=== PATIENT | female | born 1995 | race Two or more races ===

== ENCOUNTER 2019-12-12 16:16 | Emergency (ER) | payer MEDICAID, SELFPAY ==
[2019-12-12 16:20] VITALS: BP 153/85; PULSE 69; RESP 16; TEMP 36.8; O2SAT 99; BMI 42.8
[2019-12-12 16:54] LABS: Basophils % 0.5 %; Eosinophils # 0.1 10^3/uL (0.0-0.8); Eosinophils % 1.6 %; Hematocrit 42.8 % (37.0-47.0); Hemoglobin 13.8 g/dL (11.5-15.3); Lymphocytes # 1.2 10^3/uL (0.8-4.8); Lymphocytes % 27.5 %; Mean Corpuscular HGB Conc 32.2 g/dL (30.0-36.0); Mean Corpuscular Hemoglobin 28.9 pg (28.0-34.0); Mean Corpuscular Volume 89.7 fL (81-99); Mean Platelet Volume 9.4 fL (7.4-10.4); Monocytes # 0.5 10^3/uL (0.2-0.9); Monocytes % 10.3 %; Neutrophils # 2.6 10^3/uL (1.8-7.7); Neutrophils % 59.9 %; Nucleated Red Blood Cells % 0 %; Platelet Count 279 10^3/cmm (130-400); Red Blood Count 4.77 10^6/uL (4.1-5.3); White Blood Count 4.4 10^3/uL (4.0-10.0)
[2019-12-12 17:16] LABS: Alanine Aminotransferase 13 U/L (0-33); Albumin Level 4.1 g/dL (3.5-5.2); Alkaline Phosphatase 71 IU/L (35-105); Anion Gap 14.8 (5-19); Aspartate Amino Transferase 20 U/L (0-32); Blood Urea Nitrogen 9 mg/dL (6-20); Calcium 9.1 mg/dL (8.5-10.5); Carbon Dioxide 24 mmol/L (22-29); Chloride 102 mmol/L (98-107); Glomerular Filtration Rate 101.1 mL/min (90-130); Glucose 94 mg/dL (65-115); Potassium 3.8 mmol/L (3.5-5.1); Sodium 137 mmol/L (136-145); Total Bilirubin 0.3 mg/dL (0.15-1.2); Total Protein 8.1 g/dL (6.6-8.7)
[2019-12-12 17:28] LABS: Urine Appearance Bloody (CLEAR); Urine Color Red (Yellow); pH Urine 8 (5-7)
[2019-12-12 17:29] LABS: Add Urine Microscopic? YES; Bilirubin Urine Neg (NEGATIVE); Blood Urine 3+ (Negative); Glucose Urine UA Norm (Normal); Ketones Urine Negative (Negative); Leukocyte Esterase Urine 1+ (Negative); Nitrate Urine Negative (Negative); Protein Urine 1+ (Negative); Sulfosalicylic Acid Urine Negative; Urobilinogen Urine Norm (Negative)
[2019-12-12 17:52] LABS: Add Urine Culture? Yes; Bacteria Urine 1+; RBC Urine TOO NUMEROUS TO CNT /hpf (0-2)
== END 2019-12-12 17:45 | disposition left against medical advice (07) ==
LOC: ER 16:50
PROVIDERS: Emergency Provider Emergency Medicine; Family Provider Family Medicine; PCP Family Medicine
DX: Z53.21 Procedure and treatment not carried out due to patient leaving prior to being seen by health care provider (principal)
CPT/HCPCS: 36415; 80053; 81001; 81025; 85025; 87086; 99281; 99282

== ENCOUNTER 2020-01-19 01:36 | Emergency (ER) | payer MEDICAID, SELFPAY ==
[2020-01-19 01:45] VITALS: BP 132/76; PULSE 87; RESP 18; TEMP 36.8; O2SAT 97; BMI 45.8
[2020-01-19 01:49] VITALS: PULSE 88
--- NOTE | 2020-01-19 01:50 | PC.NURSE ---
PATIENT STATES SHE FELL DOWN THE STAIRS. PATIENT STATES SHE WAS JUST WALKING DOWN THE STAIRS AND HER FOOT SLIPPED OUT FROM UNDERNEATH HER. PATIENT STATES THAT HER LEFT UPPER LEG AND KNEE HURT. PATIENT STATES SHE DIDN'T HIT HER HEAD OR LOSE CONSCIOUSNESS.
[2020-01-19 01:55] VITALS: BP 134/68; PULSE 79; RESP 16; O2SAT 97
--- NOTE | 2020-01-19 01:56 | XR_ITS ---
WS: [id number] XR hip LT 2-3V wo/w pel* [id number] REASON FOR EXAM: fall/pain FINDINGS: The left hip shows no gross fractures. The acetabulum was intact. No fractures are seen. The ilium, ischium, and pubis on the left were normal. XR/XR hip LT 2-3V wo/w pel* [id number] IMPRESSION: Negative left hip.
--- NOTE | 2020-01-19 01:56 | XR_ITS ---
WS: [id number] XR femur LT min 2V* [id number] REASON FOR EXAM: fall/pain FINDINGS: The femoral shaft was normal. The left hip joints show no fractures or displacement. The knee joint was normal. There is mild edema this changes in the upper thigh area. XR/XR femur LT min 2V* [id number] IMPRESSION: No fractures are seen of the femur. There is mild soft tissue edema in the upper thigh area.
--- NOTE | 2020-01-19 02:12 | W.ED.EXTPRO ---
HPI - Extremity Problem General: Chief complaint: Extremity Injury, Lower Stated complaint: FELL DOWN STAIRS Time Seen by Provider: 01/19/20 01:51 Source: patient Mode of arrival: ambulatory Limitations: no limitations History of Present Illness: HPI Narrative: Patient is a 24-year-old female who presents to ED today with complaints of left hip and thigh pain after a fall. Patient tells me she was on a flight of stairs and accidentally fell. She denies any other injuries during the fall. Patient tells me she is not able to ambulate due to her discomfort. She denies striking her head, LOC, neck or back pain. MD Complaint: extremity pain Onset (ago): hour(s) Pain Consistency: constant Location: left and lower extremity Relieving factors: immobilization Exacerbating factors: range of motion, weight bearing, walking and palpation Associated symptoms: Reports no associated symptoms; Deny chest pain Review of Systems Eyes: Denies: change in vision or blurry vision Card: Denies: chest pain Resp: Denies: shortness of breath GI: Denies: abdominal pain Musc: Reports: extremity pain and joint pain; Denies: neck pain, back pain, extremity swelling, joint swelling, redness or joint warmth Neuro: Denies: headache, numbness in extremities, weakness in extremities or changes in sensation PFS ED PFSH: Social History Smoking and tobacco status: current every day smoker Current gender identity: Female Female Reproductive History: Date of last menstrual period: 12/11/19 Physical Exam Const: COMMON NORMALS: no apparent distress, oriented x3, no limitations and alert NUTRITIONAL APPEARANCE: obese morbidly obese Neck/C-Spine: COMMON NORMALS: full ROM CERVICAL SPINE: No pain with cervical ROM and No cervical spine tenderness Back/Pelvis: COMMON NORMALS: thoracic and lumbar spine normal to inspection, no thoracic nor lumbar tenderness and thoraco-lumbar ROM normal Extremity: OTHER: TTP L hip joint and thigh; joint hard to fully assess due to body habitus; she is able to lift leg off table about 20-30 degrees w/o assistance; can fully flex knee; no pain to knee, lower leg, foot or ankle; no redness, warmth, swelling, or ecchymosis noted to extremity; distal pulses intact and equal bilaterally; cap refill brisk Neuro: COMMON NORMALS: oriented x3, moves all extremities, no focal motor deficits and no sensory deficits noted SENSORIUM/ORIENTATION: Yes alert Skin: COMMON NORMALS: no rashes or lesions noted GENERAL SKIN EXAM: no rashes or lesions noted Course Vital Signs: Vital signs: Vital Signs Temperature 98.2 F 01/19/20 01:45 Pulse Rate 66 01/19/20 03:04 Respiratory Rate 16 01/19/20 03:04 Blood Pressure 116/71 01/19/20 03:04 Pulse Oximetry 98 01/19/20 03:04 MDM - Extremity (Nontraumatic) MDM Narrative: Medical decision making narrative: pt ambulated out of ED w/o assistance Lab Data: Labs: Lab Results 01/19/20 Range/Units 02:25 HCG, Qual Negative (Negative) Imaging Data^: L hip/pelvis XR: My impression: NAD L femur XR: My impression: NAD Discharge Plan Discharge Patient Disposition: Home, Self-Care Clinical Impression: Acute pain of left hip, Acute pain of left thigh Fall down stairs Qualifiers: Encounter type: initial encounter Qualified Code(s): W10.8XXA - Fall (on) (from) other stairs and steps, initial encounter Condition: Stable Prescriptions: No Action hydroxyzine HCl 25 mg tablet 25 mg PO BID PRN (Reason: Anxiety) RF: 0 sertraline 100 mg tablet 100 mg PO Q24H RF: 0 trazodone 50 mg tablet 50 mg PO BID RF: 0 prazosin 2 mg capsule 2 mg PO BID RF: 0 Discharge Orders: Discharge Order (Routine); Ordered 01/19/20 Ordered By: Yaritza Rouse Referrals: Vashti Hodge DO [Family Provider] - Discharge Diet: Usual diet Discharge Activity: Increase activity as tolerated and Use walker/crutches as instructed Activity Restrictions/Additional Instructions: Follow up with primary care in a week for continued or non-improving pain. Discharge Date/Time: 01/19/20 03:06 Coding Level of Care Code ED Mobile Application Engineer for Charu Fwgabino Exam Detailed
--- NOTE | 2020-01-19 02:17 | PC.NURSE ---
PATIENT AMBULATED TO BATHROOM WITH CLEAN CATCH PACKAGING AND CLEAN CATCH EDUCATION PROVIDED BY NURSE.
[2020-01-19 02:30] LABS: HCG Qualitative Urine. Negative (Negative)
--- NOTE | 2020-01-19 03:03 | PC.NURSE ---
PATIENT WAS OFFERED A SET OF CRUTCHES AND DECLINED.
[2020-01-19 03:04] VITALS: BP 116/71; PULSE 66; RESP 16; O2SAT 98
== END 2020-01-19 03:06 | disposition home or self-care (01) ==
PROVIDERS: Emergency Provider Physician Assistant; Family Provider Family Medicine
DX: M25.552 Pain in left hip (principal); M79.652 Pain in left thigh; F17.200 Nicotine dependence, unspecified, uncomplicated; E66.01 Morbid (severe) obesity due to excess calories; Z68.42 Body mass index [BMI] 45.0-49.9, adult
CPT/HCPCS: 12345; 73502; 73552; 81025; 99281; 99282; 99283; A9270

== ENCOUNTER → 2020-02-06 09:12 | Outpatient (BNVA) | payer MEDICAID, SELFPAY | PROVIDERS: Family Provider Family Medicine; Visit Provider Obstetrics & Gynecology | DX: N91.2 Amenorrhea, unspecified (principal) | CPT/HCPCS: 81025 ==

== ENCOUNTER → 2020-02-07 08:52 | Outpatient (BNVA) | payer MEDICAID, SELFPAY | PROVIDERS: Family Provider Family Medicine; Visit Provider Counselor Professional | DX: F40.10 Social phobia, unspecified (principal); F33.9 Major depressive disorder, recurrent, unspecified; F43.12 Post-traumatic stress disorder, chronic | CPT/HCPCS: 90834 ==

== ENCOUNTER → 2020-02-14 07:59 | Outpatient (BNVA) | payer MEDICAID, SELFPAY | PROVIDERS: Family Provider Family Medicine; Visit Provider Counselor Professional | DX: F40.10 Social phobia, unspecified (principal); F33.9 Major depressive disorder, recurrent, unspecified; F43.12 Post-traumatic stress disorder, chronic | CPT/HCPCS: 90834 ==

== ENCOUNTER 2020-02-15 23:58 | Emergency (ER) | payer MEDICAID, SELFPAY ==
[2020-02-16 00:04] VITALS: BP 131/81; PULSE 98; RESP 16; TEMP 36.9; O2SAT 100; BMI 45.8
--- NOTE | 2020-02-16 00:11 | US_ITS ---
WS: [id number] EARLY OBSTETRICAL ULTRASOUND (<14 WEEKS). HISTORY: Vaginal bleeding. COMPARISON: None available. Single intrauterine gestational sac is identified. Cardiac activity at 116 BPM. [place]-rump length sandra sures 0.3 cm which corresponds to a gestation of 6w0d. Normal-appearing yolk sac and amnion demonstra abhishek. No subchorionic hemorrhage. No free fluid. Normal size ovaries with no mass. US/US OB <= 14 weeks fetus [id number] IMPRESSION: 1. Single intrauterine gestation of 6 weeks 0 days with an EDC of 10/11/2020. 2. No subchorionic hemorrhage.
--- NOTE | 2020-02-16 00:16 | W.ED.PREGNAN ---
HPI - General: Chief complaint: Vaginal Bleeding Stated complaint: preg and bleeding Time Seen by Provider: 02/16/20 00:05 Source: patient Mode of arrival: ambulatory Limitations: no limitations History of Present Illness: HPI Narrative: 25-year-old female who is roughly 6 to 7 weeks states she noticed some slight blood when she wiped tonight. She is also had some lower abdominal cramping she has had for days she rates a 2 out of 10. She denies any clot passage. She denies any worsening or improving factors. She is unsure what her blood type is. Complaint: vaginal bleeding Onset (ago): hour(s) Severity: mild Quality: Cramping Relieving factors: none Exacerbating factors: none Vaginal discharge: none Vaginal bleeding: light Date of Last Menstrual Period: 01/04/20 Associated symptoms: Deny abdominal pain, dysuria, headache(s), nausea or vomiting Review of Systems Const: Denies: fever, chills, body aches or change in appetite Eyes: Denies: blurry vision or eye discomfort ENMT: Denies: throat pain or dental pain Card: Denies: chest pain Resp: Denies: shortness of breath GI: Denies: abdominal pain, nausea, vomiting or diarrhea : Reports: vaginal bleeding; Denies: painful urination Musc: Denies: neck pain or back pain Skin/Breast: Denies: rash Neuro: Denies: headache Psych: Denies: depression Gabriel/Lymph: Denies: easy bruising All/Imm: Denies: hives PFSH ED PFSH: Social History Smoking and tobacco status: current every day smoker Current gender identity: Female Female Reproductive History: Date of last menstrual period: 01/04/20 Physical Exam Const: COMMON NORMALS: no apparent distress, oriented x3 and healthy appearing HENMT: COMMON NORMALS: normocephalic and head/scalp atraumatic HEAD & SCALP: normocephalic and atraumatic Eye: COMMON NORMALS: PERRL and EOMs intact bilaterally PUPIL: Yes PERRL Neck/C-Spine: COMMON NORMALS: full ROM and supple Chest: COMMONS NORMALS: inspection of chest normal and palpation of chest normal Resp: COMMON NORMALS: normal respiratory effort, no retractions, no use of accessory muscles and clear to auscultation bilaterally AUSCULTATION: clear to auscultation bilaterally Cardio: COMMON NORMALS: regular rate, regular rhythm and no murmurs RATE: regular rate RHYTHM: regular rhythm GI: COMMON NORMALS: normal to inspection, nondistended, normoactive bowel sounds, soft to palpation, non-tender and no masses PALPATION: Yes soft Extremity: COMMON NORMALS: normal to inspection and full ROM Neuro: COMMON NORMALS: oriented x3, moves all extremities and no focal motor deficits Psych: COMMON NORMALS: mental status grossly normal, thought process normal and cooperative THOUGHT PROCESS: normal thought process Skin: COMMON NORMALS: no rashes or lesions noted and no wounds GENERAL SKIN EXAM: no rashes or lesions noted Course Vital Signs: Vital signs: Vital Signs Temperature 98.4 F 02/16/20 00:04 Pulse Rate 98 02/16/20 00:04 Respiratory Rate 16 02/16/20 00:04 Blood Pressure 131/81 02/16/20 00:04 Pulse Oximetry 100 02/16/20 00:04 MDM - OB/Uterine Contractions MDM Narrative: Medical decision making narrative: Patient presents here with threatened miscarriage. Patient's blood type is a positive and ultrasound showed an IUP consistent with dates. She has no signs of ectopic . Her bleeding is minimal in nature and is stable for discharge. She is to follow-up with her OB in 2 to 4 days and return if worsening. Lab Data: Labs: Lab Results 02/16/20 02/16/20 Range/Units 00:25 00:25 Ser , Sadia i-Qnt 75287.00 mIU/mL Blood Type A Positive Rho(D) Type Positive Imaging Data^: US OB: My impression: IUP 6 weeks with good heart rate Discharge Plan Discharge Patient Disposition: Home, Self-Care Clinical Impression: Threatened Condition: Stable Prescriptions: No Action hydroxyzine HCl 25 mg tablet 25 mg PO BID PRN (Reason: Anxiety) RF: 0 sertraline 100 mg tablet 100 mg PO Q24H RF: 0 trazodone 50 mg tablet 50 mg PO BID RF: 0 prazosin 2 mg capsule 2 mg PO BID RF: 0 Discharge Orders: Discharge Order (Routine); Ordered 02/16/20 Ordered By: Robb Fregoso Referrals: Vashti Hodge DO [Primary Care Provider] - 4-7 days Discharge Diet: Advance as tolerated Discharge Activity: Resume usual activity Patient Instructions: Threatened Miscarriage (ED) Coding Level of Care Code ED [employer] Operator for Casag Fwd Exam Comprehensive
[2020-02-16 01:32] VITALS: BP 127/62; PULSE 74; RESP 17; O2SAT 94
== END 2020-02-16 01:36 | disposition home or self-care (01) ==
PROVIDERS: Emergency Provider Emergency Medicine; Family Provider Family Medicine; PCP Family Medicine
DX: O20.0 Threatened abortion (principal); Z3A.01 Less than 8 weeks gestation of pregnancy; O99.331 Smoking (tobacco) complicating pregnancy, first trimester
CPT/HCPCS: 12345; 36415; 76801; 84702; 86850; 86900; 99281

== ENCOUNTER 2020-02-17 14:56 | Emergency (ER) | payer MEDICAID, SELFPAY ==
[2020-02-17 15:09] VITALS: BP 134/91; PULSE 91; RESP 18; TEMP 36.6; O2SAT 95; BMI 45.8
--- NOTE | 2020-02-17 15:32 | ED_ITS ---
HPI - Female Genitourinary General: Chief complaint: Vaginal Bleeding Stated complaint: abd pain, bleeding, 6 weeks preg Time Seen by Provider: 02/17/20 15:23 History of Present Illness: HPI Narrative: Pt has been having vaginal bleeding since yesterday, she found out she was and was here last night with bleeding and pain. Was found to be 6 weeks and had normal iup. Since then she has had more blood and pain so she came back as she was told to. She is MD elicited complaint: vaginal bleeding, pelvic pain and possible miscarriage Onset (ago): day(s) Location of symptoms: pelvis and low back Severity: moderate Female Urogenital Radiation: Non-Radiating Severity scale (1-10): 5 Quality of pain: cramping and aching Consistency: intermittent Vaginal discharge: none Vaginal bleeding: moderate Exacerbating factors: none Relieving factors: none Associated symptoms: Reports vaginal bleeding; Deny abdominal pain, headache(s) or nausea Patient : Yes Date of Last Menstrual Period: 01/04/20 Review of Systems General: Reports: 10 or more systems reviewed and unremarkable except in HPI and below Const: Denies: fever, chills or fatigue ENMT: Denies: throat pain Card: Denies: chest pain or swelling of feet/ankles Resp: Denies: shortness of breath or productive cough GI: Denies: abdominal pain, nausea, vomiting, diarrhea, constipation or blood in stool : Reports: bleeding between periods and pelvic pain; Denies: difficulty urinating Musc: Denies: extremity swelling Skin/Breast: Denies: rash Neuro: Denies: headache, numbness in extremities or weakness in extremities PFS ED PFSH: Social History Smoking and tobacco status: former smoker Current gender identity: Female Female Reproductive History: Date of last menstrual period: 01/04/20 Physical Exam Const: COMMON NORMALS: no apparent distress and oriented x3 GENERAL APPEARANCE: cooperative; not in distress HENMT: COMMON NORMALS: normocephalic HEAD & SCALP: normal to inspection and normocephalic MOUTH: oral and palatal mucosa normal and lip normal Neck/C-Spine: COMMON NORMALS: no meningeal signs GENERAL: Yes normal visual inspection and Yes trachea midline Chest: COMMONS NORMALS: inspection of chest normal Resp: COMMON NORMALS: normal respiratory effort and clear to auscultation bilaterally EFFORT & INSPECTION: Yes able to speak in complete sentences and No respiratory distress AUSCULTATION: clear to auscultation bilaterally, no rales, no rhonchi and no wheezes Cardio: COMMON NORMALS: regular rate, regular rhythm, S1 normal heart sound, S2 normal heart sound and no murmurs RATE: regular rate RHYTHM: regular rhythm HEART SOUNDS: S1 normal and S2 normal PERIPHERAL PULSES: radial pulses present and dorsalis pedis pulses present GI: COMMON NORMALS: normal to inspection, nondistended, normoactive bowel sounds, soft to palpation and non-tender INSPECTION: Yes normal to inspection AUSCULTATION: Yes normoactive bowel sounds PALPATION: Yes soft, No tender, No guarding and No rigid RECTAL EXAM: deferred : COMMON NORMALS: Yes no CVA tenderness BLADDER/KIDNEY EXAM: Yes no CVA tenderness SPECULUM EXAM - VAGINA: Yes vaginal bleeding OB/EXTERNAL & SPECULUM: vaginal bleeding Back/Pelvis: COMMON NORMALS: no CVA tenderness Extremity: COMMON NORMALS: normal to inspection, full ROM, normal capillary refill, no calf tenderness and no pedal edema Neuro: COMMON NORMALS: oriented x3, CN's II-XII intact bilaterally, moves all extremities and no focal motor deficits MENINGEAL SIGNS: Yes no meningeal signs Skin: COMMON NORMALS: no rashes or lesions noted GENERAL SKIN EXAM: no rashes or lesions noted Course Vital Signs: Vital signs: Vital Signs Temperature 97.9 F 02/17/20 15:09 Pulse Rate 91 02/17/20 15:09 Respiratory Rate 18 02/17/20 15:09 Blood Pressure 134/91 02/17/20 15:09 Pulse Oximetry 97 02/17/20 15:51 MDM - Female MDM Narrative: Medical decision making narrative: Dr Kay is looking at us now and comparing to yesterday. States there could be a viable , however as the us reports that cannot r/o ectpoic we will have her come back in 2 days for repeat us to check for ectopic. Or if she is having bleeding at 3-4 pads per hour or severe pain. Pts quant is going up, that will need to be repeated as well. She understands eerything. She has an appointment with ob on march 06. Bleeding is light now Lab Data: Attestation: I reviewed the patient's lab results. Labs: Lab Results 02/17/20 02/17/20 Range/Units 15:53 15:53 WBC 5.2 (4.0-10.0) 10^3/ uL RBC 4.56 (4.1-5.3) 10^6/u L Hgb 13.6 (11.5-15.3) g/dL Hct 41.4 (37.0-47.0) % MCV 90.8 (81-99) fL MCH 29.8 (28.0-34.0) pg MCHC 32.9 (30.0-36.0) g/dL RDW 13.7 (12.1-15.1) % Plt Count 244 (130-400) 10^3/c mm MPV 8.7 (7.4-10.4) fL Neut % (Auto) 63.6 % Lymph % (Auto) 21.8 % Hickman % (Auto) 11.1 % Eos % (Auto) 2.5 % Baso % (Auto) 0.6 % Neut # (Auto) 3.3 (1.8-7.7) 10^3/u L Lymph # (Auto) 1.1 (0.8-4.8) 10^3/u L Hickman # (Auto) 0.6 (0.2-0.9) 10^3/u L Eos # (Auto) 0.1 (0.0-0.8) 10^3/u L Baso # (Auto) 0.0 (0.0-0.1) 10^3/u L Nucleated RBC % (a uto) 0 % Nucleated RBCs # 0.0 /100WBC Ser , Sadia i-Qnt 50875.00 mIU/mL Imaging Data: US OB: Radiologist's impression: Patient: Monae Gomez #: [id number] : 1995Acct#:[id number] Age/Sex: 25 / FADM Date: 02/17/20 Loc: ERRoom/Bed: Attending Dr: Ordering Provider/Ordering MD: Diane Restrepo DO Date of Service: 02/17/20 Procedure(s): US OB transvaginal [id number] Accession Number(s): [id number] Report Number: [id number] WS: [id number] Obstetrical ultrasound, less than 14 weeks. HISTORY: Possible miscarriage. COMPARISON: 02/16/2020. Previously seen yolk sac is no longer identified. Gestational sac remains normal in appearance. There is no crown-rump length. Cardiac activity was identified on the prior study is no longer evident. No free fluid. LEFT ovary contains a thick wall cyst measuring 2.5 x 2.2 x 2.2 cm. Mild hyperemia. US/US OB transvaginal [id number] IMPRESSION: 1. Intrauterine gestation described on 02/16/2020 is not evident today. Suspect incomplete spontaneous . There is no cardiac activity or yolk sac identified today. 2. The gestational sac remains intact. 3. LEFT ovarian corpus luteum cyst. Similar appearance to an ectopic . Please correlate with decreasing beta hCG levels. With an intrauterine gestation identified on 02/16/2020 and less likely to be an ectopic. Dictated By:Antonia Dunlap DO Signed By:Antonia Dunlap DOSigned Date/Time:02/17/20 1628 Discharge Plan Discharge Patient Disposition: Home, Self-Care Clinical Impression: Threatened Condition: Stable Prescriptions: No Action hydroxyzine HCl 25 mg tablet 25 mg PO BID PRN (Reason: Anxiety) RF: 0 sertraline 100 mg tablet 100 mg PO Q24H RF: 0 trazodone 50 mg tablet 50 mg PO BID RF: 0 prazosin 2 mg capsule 2 mg PO BID RF: 0 Referrals: Vashti Hodge DO [Primary Care Provider] - 1-3 days Discharge Diet: Advance as tolerated Discharge Activity: Limit activity as instructed Patient Instructions: Threatened Miscarriage (ED) Activity Restrictions/Additional Instructions: no sexual activity, limit lifting, no tampons return if worse, any problem, any change f/u with OB as scheduled return in 2 days for repeat US to look for ectopic and quant hcg Coding Level of Care Code ED Vp Scientific Affairs for Chg Fwd Exam Comprehensive
[2020-02-17 15:51] VITALS: O2SAT 97
--- NOTE | 2020-02-17 15:51 | US_ITS ---
WS: [id number] Obstetrical ultrasound, less than 14 weeks. HISTORY: Possible miscarriage. COMPARISON: 02/16/2020. Previously seen yolk sac is no longer identified. Gestational sac remains normal in appearance. There is no crown-rump length. Cardiac activity was identified on the prior study is no longer evident. No free fluid. LEFT ovary contains a thick wall cyst measuring 2.5 x 2.2 x 2.2 cm. Mild hyperemia. US/US OB transvaginal [id number] IMPRESSION: 1. Intrauterine gestation described on 02/16/2020 is not evident today. Suspect incomplete spontaneous . There is no cardiac activity or yolk sac iden tified today. 2. The gestational sac remains intact. 3. LEFT ovarian corpus luteum cyst. Similar appearance to an ectopic . Please correlate with decreasing beta hCG levels. With an intrauterine gestat ion identified on 02/16/2020 and less likely to be an ectopic.
--- NOTE | 2020-02-17 15:54 | PC.NURSE ---
Unable to dopple heart tones. ED provider in room
[2020-02-17 16:01] LABS: Basophils % 0.6 %; Eosinophils # 0.1 10^3/uL (0.0-0.8); Eosinophils % 2.5 %; Hematocrit 41.4 % (37.0-47.0); Hemoglobin 13.6 g/dL (11.5-15.3); Lymphocytes # 1.1 10^3/uL (0.8-4.8); Lymphocytes % 21.8 %; Mean Corpuscular HGB Conc 32.9 g/dL (30.0-36.0); Mean Corpuscular Hemoglobin 29.8 pg (28.0-34.0); Mean Corpuscular Volume 90.8 fL (81-99); Mean Platelet Volume 8.7 fL (7.4-10.4); Monocytes # 0.6 10^3/uL (0.2-0.9); Monocytes % 11.1 %; Neutrophils # 3.3 10^3/uL (1.8-7.7); Neutrophils % 63.6 %; Nucleated Red Blood Cells % 0 %; Platelet Count 244 10^3/cmm (130-400); Red Blood Count 4.56 10^6/uL (4.1-5.3); Red Cell Distribution Width 13.7 % (12.1-15.1); White Blood Count 5.2 10^3/uL (4.0-10.0)
[2020-02-17 17:45] VITALS: BP 153/63; PULSE 68; O2SAT 98
== END 2020-02-17 17:45 | disposition home or self-care (01) ==
PROVIDERS: Emergency Provider Emergency Medicine; Family Provider Family Medicine; PCP Family Medicine
DX: O20.0 Threatened abortion (principal); Z3A.01 Less than 8 weeks gestation of pregnancy
CPT/HCPCS: 12345; 36415; 76817; 84702; 85025; 99281; 99282

== ENCOUNTER 2020-02-19 10:09 | Emergency (ER) | payer MEDICAID, SELFPAY ==
[2020-02-19 10:19] VITALS: BP 156/83; PULSE 90; RESP 16; O2SAT 99; BMI 45.8
[2020-02-19 10:23] VITALS: BP 156/83; PULSE 88; RESP 16; O2SAT 99
--- NOTE | 2020-02-19 10:23 | W.ED.PREGNAN ---
HPI - General: Chief complaint: OB/Uterine Contractions Stated complaint: 6 WKS PREG, BLEEDING/CRAMPING Time Seen by Provider: 02/19/20 10:14 History of Present Illness: HPI Narrative: Patient is 3 para 2. She states she has had vaginal bleeding since last week. Also complaints of abdominal cramping and pain MD Complaint: abdominal pain and vaginal bleeding Onset (ago): day(s) Pain Consistency: constant Location: pelvis and abdomen Severity: moderate Quality: Cramping Relieving factors: none Exacerbating factors: movement Vaginal discharge: none Vaginal bleeding: light Date of Last Menstrual Period: 01/04/20 Patient : Yes Review of Systems General: Reports: 10 or more systems reviewed and unremarkable except in HPI and below : Reports: vaginal bleeding PFSH ED PFSH: Social History Smoking and tobacco status: former smoker Current gender identity: Female Female Reproductive History: Date of last menstrual period: 01/04/20 Physical Exam Const: COMMON NORMALS: no apparent distress, oriented x3 and alert Neck/C-Spine: COMMON NORMALS: no JVD Resp: COMMON NORMALS: normal respiratory effort, no retractions, no use of accessory muscles and clear to auscultation bilaterally AUSCULTATION: clear to auscultation bilaterally Cardio: COMMON NORMALS: no JVD, regular rate and regular rhythm RATE: regular rate RHYTHM: regular rhythm GI: COMMON NORMALS: normal to inspection, nondistended, normoactive bowel sounds, soft to palpation and non-tender PALPATION: Yes soft Extremity: COMMON NORMALS: normal to inspection, full ROM and no pedal edema Neuro: COMMON NORMALS: oriented x3 SENSORIUM/ORIENTATION: Yes alert Skin: COMMON NORMALS: no rashes or lesions noted, no wounds, skin turgor normal, no jaundice, no petechiae and no mottling GENERAL SKIN EXAM: no rashes or lesions noted and turgor normal Discharge Plan Discharge Prescriptions: No Action hydroxyzine HCl 25 mg tablet 25 mg PO BID PRN (Reason: Anxiety) RF: 0 sertraline 100 mg tablet 100 mg PO Q24H RF: 0 trazodone 50 mg tablet 50 mg PO BID RF: 0 prazosin 2 mg capsule 2 mg PO BID RF: 0 Coding Level of Care Code ED [employer] Teacher for Chg Fwd
--- NOTE | 2020-02-19 10:26 | USR_ITS ---
PROCEDURE INFORMATION: Exam: US First Trimester, Transabdominal and US , Transvaginal Exam date and time: 02/19/2020 11:24 AM Age: 25 years old Clinical indication: Lmp or gestational age (in weeks): 6 weeks 3 days; Other: Spotting; ; Patient HX: Prior exams on 02-16-20 and 02-17-20; Additional info: Threatened ab TECHNIQUE: Imaging protocol: Real-time transabdominal obstetrical ultrasound of the maternal pelvis and a first trimester , less than 14 weeks 0 days, with image documentation. Transvaginal imaging was used for better evaluation of the fetus and adnexa. COMPARISON: US OB transvaginal [id number] 02/17/2020 4:16 PM FINDINGS: GESTATION: Gestation: Single intrauterine gestational sac. Yolk sac identified measuring 3.1 mm. pole identified by transvaginal imaging. Heart rate: 116 bpm. Placenta: Unremarkable. No subchorionic bleed. Amniotic fluid: Amniotic is normal for gestational age. BIOMETRY: Estimated gestational age: [place]-rump length 6 weeks 3 days. Mean sac diameter: Mean sac diameter 7 weeks 1 day transabdominally. [place]-Rump length: [place]-rump length 6 weeks 3 days. Estimated due date: [place] 10/11/2020. MATERNAL: Uterus: Uterus 10.0 x 5.6 .x 6.8 cm transabdominally Cervix: Small uterine cervical nabothian cysts measuring up to 3.7 mm. Right adnexa: Right ovary 2.2 x 2.7 x 2.9 cm transabdominally. Normal color Doppler blood flow. Left adnexa: Left ovary 2.3 x 2.2 x 2.3 cm transabdominally. 1.8 cm left ovarian follicle. Normal arterial and venous left ovarian blood flow. Intraperitoneal: No intraperitoneal free fluid. US/US OB <=14 wk fetus w transvag IMPRESSION: Single living intrauterine . [place]-rump length 6 weeks 3 days.
[2020-02-19 10:27] VITALS: TEMP 36.9
--- NOTE | 2020-02-19 10:50 | PC.NURSE ---
US tech at bedside
[2020-02-19 11:37] LABS: Basophils # 0.1 10^3/uL (0.0-0.1); Basophils % 0.8 %; Eosinophils # 0.2 10^3/uL (0.0-0.8); Eosinophils % 2.4 %; Hematocrit 42.1 % (37.0-47.0); Hemoglobin 13.9 g/dL (11.5-15.3); Lymphocytes # 1.7 10^3/uL (0.8-4.8); Lymphocytes % 27.5 %; Mean Corpuscular Hemoglobin 29.8 pg (28.0-34.0); Mean Corpuscular Volume 90.3 fL (81-99); Mean Platelet Volume 8.9 fL (7.4-10.4); Monocytes # 0.5 10^3/uL (0.2-0.9); Monocytes % 7.3 %; Neutrophils # 3.9 10^3/uL (1.8-7.7); Neutrophils % 61.8 %; Nucleated Red Blood Cells % 0 %; Platelet Count 250 10^3/cmm (130-400); Red Blood Count 4.66 10^6/uL (4.1-5.3); Red Cell Distribution Width 13.7 % (12.1-15.1); White Blood Count 6.3 10^3/uL (4.0-10.0)
[2020-02-19 11:47] VITALS: BP 116/65; PULSE 69; RESP 16; O2SAT 98
[2020-02-19 12:01] VITALS: BP 102/55
[2020-02-19 12:04] LABS: Alanine Aminotransferase 11 U/L (0-33); Albumin Level 3.9 g/dL (3.5-5.2); Alkaline Phosphatase 62 IU/L (35-105); Anion Gap 15.9 (5-19); Aspartate Amino Transferase 15 U/L (0-32); Blood Urea Nitrogen 11 mg/dL (6-20); Calcium 9.1 mg/dL (8.5-10.5); Carbon Dioxide 23 mmol/L (22-29); Chloride 101 mmol/L (98-107); Glucose 93 mg/dL (65-115); Osmolality Calculated 278 mOsm/kg (285-295); Potassium 3.9 mmol/L (3.5-5.1); Sodium 136 mmol/L (136-145); Total Bilirubin 0.6 mg/dL (0.15-1.2); Total Protein 6.9 g/dL (6.6-8.7)
[2020-02-19 12:14] VITALS: BP 111/64; PULSE 69; RESP 16; O2SAT 96
== END 2020-02-19 12:15 | disposition home or self-care (01) ==
PROVIDERS: Emergency Provider Family Medicine; Family Provider Family Medicine; PCP Family Medicine
DX: O20.9 Hemorrhage in early pregnancy, unspecified (principal); Z3A.01 Less than 8 weeks gestation of pregnancy
CPT/HCPCS: 12345; 36415; 76801; 76817; 80053; 84702; 85025; 86900; 99282; 99283

== ENCOUNTER → 2020-02-21 08:30 | Outpatient (BNVA) | payer MEDICAID, SELFPAY | PROVIDERS: Family Provider Family Medicine; PCP Family Medicine; Visit Provider Counselor Professional | DX: F40.10 Social phobia, unspecified (principal); F33.9 Major depressive disorder, recurrent, unspecified; F43.12 Post-traumatic stress disorder, chronic | CPT/HCPCS: 90834 ==

== ENCOUNTER → 2020-02-22 08:40 | Outpatient (BNVA) | payer MEDICAID, SELFPAY | PROVIDERS: Family Provider Family Medicine; PCP Family Medicine; Visit Provider Psychiatry & Neurology Psychiatry | DX: F33.1 Major depressive disorder, recurrent, moderate (principal); F43.10 Post-traumatic stress disorder, unspecified | CPT/HCPCS: 99205 ==

== ENCOUNTER → 2020-03-01 10:20 | Outpatient (BNVA) | payer MEDICAID, SELFPAY | PROVIDERS: Family Provider Family Medicine; PCP Family Medicine; Visit Provider Nurse Practitioner Women's Health | DX: Z34.90 Encounter for supervision of normal pregnancy, unspecified, unspecified trimester (principal) | CPT/HCPCS: 76817; 84315 ==

== ENCOUNTER → 2020-03-05 08:43 | Outpatient (BNVA) | payer MEDICAID, SELFPAY | PROVIDERS: Family Provider Family Medicine; PCP Family Medicine; Visit Provider Counselor Professional | DX: F43.12 Post-traumatic stress disorder, chronic (principal); F32.9 Major depressive disorder, single episode, unspecified | CPT/HCPCS: 90834 ==

== ENCOUNTER → 2020-03-13 08:24 | Outpatient (BNVA) | payer MEDICAID, SELFPAY | PROVIDERS: Family Provider Family Medicine; PCP Family Medicine; Visit Provider Counselor Professional | DX: F43.12 Post-traumatic stress disorder, chronic (principal); F32.9 Major depressive disorder, single episode, unspecified | CPT/HCPCS: 90834 ==

== ENCOUNTER → 2020-03-14 13:49 | Outpatient (BNVA) | payer MEDICAID, SELFPAY | PROVIDERS: Family Provider Family Medicine; PCP Family Medicine; Visit Provider Obstetrics & Gynecology | DX: O09.899 Supervision of other high risk pregnancies, unspecified trimester (principal); O99.211 Obesity complicating pregnancy, first trimester; Z13.79 Encounter for other screening for genetic and chromosomal anomalies | CPT/HCPCS: 80053; 80307; 82950; 84315; 86592; 86762; 86803; 87086; 87186; 87340; 87624 ==

== ENCOUNTER → 2020-03-22 10:50 | Outpatient (BNVA) | payer MEDICAID, SELFPAY | PROVIDERS: Family Provider Family Medicine; PCP Family Medicine; Visit Provider Counselor Professional | DX: F41.1 Generalized anxiety disorder (principal); F33.2 Major depressive disorder, recurrent severe without psychotic features; F43.12 Post-traumatic stress disorder, chronic | CPT/HCPCS: 90834 ==

== ENCOUNTER 2020-03-22 23:28 | Emergency (ER) | payer MEDICAID, SELFPAY ==
[2020-03-22 23:38] VITALS: BP 124/85; PULSE 63; RESP 16; TEMP 36.7; O2SAT 99; BMI 48.7
--- NOTE | 2020-03-22 23:53 | ED_ITS ---
HPI - General: Chief complaint: Vaginal Bleeding Stated complaint: 10 weeks preg/cramping Time Seen by Provider: 03/22/20 23:35 Source: patient Mode of arrival: ambulatory Limitations: no limitations History of Present Illness: HPI Narrative: 25-year-old female is currently 10 weeks states she has had vaginal bleeding tonight. She states she passed a small clot. She has lower abdominal cramping that is since resolved. This is her third and she had no problems with previous 2. She states her blood type is a positive. She denies any fevers. She has been seen here for vaginal bleeding at 8 weeks and had a normal ultrasound at that time. Complaint: vaginal bleeding Onset (ago): hour(s) Pain Consistency: intermittent Location: abdomen Severity: mild Quality: Cramping Relieving factors: none Exacerbating factors: none Vaginal bleeding: light Date of Last Menstrual Period: 01/04/20 Associated symptoms: Reports abdominal pain; Deny headache(s) Review of Systems Const: Denies: fever(s), chills, body aches or change in appetite Eyes: Denies: blurry vision or eye discomfort ENMT: Denies: throat pain or dental pain Card: Denies: chest pain Resp: Denies: dyspnea GI: Reports: abdominal pain : Reports: vaginal bleeding Musc: Denies: neck pain or back pain Skin/Breast: Denies: rash Neuro: Denies: headache(s) Psych: Denies: depression Gabriel/Lymph: Denies: easy bruising All/Imm: Denies: urticaria PFS ED PFSH: Medical History Anxiety and depression Reports PTSD as well as and to anxiety and depression since about the age of 38. She follows up with a psychiatrist Dr. Beltran and symptoms are well controlled on Zoloft. She does take cyproheptadine to help her sleep prescribed by her psychiatrist who is aware that she is . She was taking trazodone prior to the History of deep venous thrombosis or pulmonary embolus (~2013---laparoscopic procedure performed in [place]. She was 10 weeks at that time with her second . She states that she had severe jaundice and was transported from [facility] to [place] where she had a cholecystectomy performed. She then had to have an ERCP done 1 to 2 days after her laparoscopic procedure as she continued to get worse. She ended up being in the hospital for about 1 week. Upon discharge the same day she developed shortness of breath and when she returned to the emergency room she was diagnosed with a PE. She was placed on blood thinners for the rem ainder of the as well as for 3 to 6 months afterwards-she is not sure. She has not been on blood thinners since . In 2013 and denies any other DVT/PEs. No pertinent past medical history Patient denies history of: hypertension, hypercholesterolemia, lung, liver, kidney, thyroid, heart problems, genital herpes. PMD: None Surgical History History of cholecystectomy 2013---laparoscopic procedure performed in [place]. She was 10 weeks at that time with her second . She states that she had severe jaundice and was transported from [facility] to [place] where she had a cholecystectomy performed. She then had to have an ERCP done 1 to 2 days after her laparoscopic procedure as she continued to get worse. She ended up being in the hospital for about 1 week. Upon discharge the same day she developed shortness of breath and when she returned to the emergency room she was diagnosed with a PE. She was placed on blood thinners for the remainder of the as well as for 3 to 6 months afterwards-she is not sure. Family History Family/Other Diabetes Maternal aunt Hypertension Maternal aunt Family history of thyroid problem Maternal aunt Mother Family history of thyroid problem Grandmother Family history of thyroid problem Paternal grandmother Maternal grandmother Denies family history of Colon cancer Ovarian cancer Heart disease Hyperlipidemia Breast cancer Uterine cancer Stroke Social History Smoking and tobacco status: former smoker Quit status (tobacco): has quit using tobacco Former quit date comment: January 2020-- 12ppd Alcohol intake: never Current gender identity: Female Additional social history: - Tobacco Use: Started smoking at age 16 and smoked 1/2 pack per day off and on since then until she quit 02/2020 when she found out she was . Denies tobacco use since then. 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 Reproductive History: Date of last menstrual period: 01/04/20 Physical Exam Const: COMMON NORMALS: no acute distress, patient oriented x3 and healthy appearing HENMT: COMMON NORMALS: normocephalic and atraumatic HEAD & SCALP: normocephalic and atraumatic Eye: COMMON NORMALS: Equal, round and reactive pupils present and EOMs intact bilaterally PUPIL: Yes Equal, round and reactive pupils present Neck/C-Spine: COMMON NORMALS: full ROM and supple Chest: COMMONS NORMALS: normal inspection of the chest and normal palpation of entire chest wall Resp: COMMON NORMALS: normal respiratory effort, No retractions, No use of accessory muscles and clear to auscultation bilaterally AUSCULTATION: clear to auscultation bilaterally Cardio: COMMON NORMALS: regular rate, regular rhythm and No murmurs present (C ardio) RATE: regular rate RHYTHM: regular rhythm GI: COMMON NORMALS: Normal to inspection, nondistended, normoactive bowel sounds present, Soft to palpation, non-tender and no masses PALPATION: Yes Soft to palpation Extremity: COMMON NORMALS: normal to inspection and full ROM Neuro: COMMON NORMALS: patient oriented x3, moves all extremities and no focal motor deficits Psych: COMMON NORMALS: mental status grossly normal, Normal thought process present and cooperative THOUGHT PROCESS: Normal thought process present Skin: COMMON NORMALS: no rashes or lesions noted and no wounds GENERAL SKIN EXAM: no rashes or lesions noted Course Vital Signs: Vital signs: Vital Signs Temperature 98.0 F 03/22/20 23:38 Pulse Rate 60 03/23/20 00:40 Respiratory Rate 18 03/23/20 00:40 Blood Pressure 106/64 03/23/20 00:40 Pulse Oximetry 99 03/23/20 00:40 MDM - OB/Uterine Contractions MDM Narrative: Medical decision making narrative: Patient presents here with a threatened miscarriage. The bedside ultrasound did see IUP but did not get a definite heart rate. Patient had an ultrasound at 8 weeks that show IUP with heart rate patient has no signs of ectopic. Her bleeding is since stopped. Is concerned that she will miscarry and I informed her she needs to follow-up with her OB Dr. Kay in 1 to 3 days. She is to return to the ER if her bleeding increases. Patient's blood type is a positive. She is stable for discharge. Lab Data: Labs: Lab Results 03/22/20 03/22/20 03/23/20 Range/Units 23:55 23:55 00:30 WBC 8.0 (4.0-10.0) 10^3/ uL RBC 4.15 (4.1-5.3) 10^6/u L Hgb 12.3 (11.5-15.3) g/dL Hct 38.2 (37.0-47.0) % MCV 92.0 (81-99) fL MCH 29.6 (28.0-34.0) pg MCHC 32.2 (30.0-36.0) g/dL RDW 13.7 (12.1-15.1) % Plt Count 291 (130-400) 10^3/c mm MPV 9.1 (7.4-10.4) fL Neut % (Auto) 53.7 % Lymph % (Auto) 32.7 % [place] % (Auto) 7.0 % Eos % (Auto) 5.9 % Baso % (Auto) 0.6 % Neut # (Auto) 4.3 (1.8-7.7) 10^3/u L Lymph # (Auto) 2.6 (0.8-4.8) 10^3/u L [place] # (Auto) 0.6 (0.2-0.9) 10^3/u L Eos # (Auto) 0.5 (0.0-0.8) 10^3/u L Baso # (Auto) 0.1 (0.0-0.1) 10^3/u L Nucleated RBC % (a uto) 0 % Nucleated RBCs # 0.0 /100WBC Urine Color Yellow (Yellow) Urine Appearance Sl cloudy A (CLEAR) Urine pH 7 (5-7) Ur Specific Gravit y 1.015 (1.005-1.030) Urine Protein Neg (Negative) Urine Glucose (UA) Norm (Normal) Urine Ketones Negative (Negative) Urine Blood 3+ H (Negative) Urine Nitrate Negative (Negative) Urine Bilirubin Neg (NEGATIVE) Urine Urobilinogen 4 H (Negative) mg/dL Ur Leukocyte Joseline ase 1+ H (Negative) Blood Type A Positive Rho(D) Type Positive Discharge Plan Discharge Patient Disposition: Home, Self-Care Clinical Impression: Threatened Condition: Stable Prescriptions: No Action Gummies 400 mcg-35 mg- 25 mg-5 mg tablet,chewable 2 tab PO DAILY RF: 0 enoxaparin [Lovenox] 40 mg/0.4 mL syringe 40 mg SUBCUT Q24H Qty: 4 RF: 2 cyproheptadine 4 mg tablet 4 mg PO .qhs PRN (Reason: Nightmares) Qty: 30 RF: 1 zinc gluconate 30 mg tablet 30 mg PO DAILY Qty: 30 RF: 0 sertraline [Zoloft] 100 mg tablet 50 mg PO DAILY Qty: 30 RF: 1 Discharge Orders: Discharge Order (Routine); Ordered 03/23/20 Ordered By: Robb Fregoso Referrals: Gareth Kay MD [Physician] - Vashti Hodge DO [Primary Care Provider] - Discharge Diet: Advance as tolerated Discharge Activity: Resume usual activity Patient Instructions: Threatened Miscarriage (ED) Coding Level of Care Code ED Director Check for Chg Fwd Exam Comprehensive
[2020-03-23 00:14] LABS: Basophils # 0.1 10^3/uL (0.0-0.1); Basophils % 0.6 %; Eosinophils # 0.5 10^3/uL (0.0-0.8); Eosinophils % 5.9 %; Hematocrit 38.2 % (37.0-47.0); Hemoglobin 12.3 g/dL (11.5-15.3); Lymphocytes # 2.6 10^3/uL (0.8-4.8); Lymphocytes % 32.7 %; Mean Corpuscular HGB Conc 32.2 g/dL (30.0-36.0); Mean Corpuscular Hemoglobin 29.6 pg (28.0-34.0); Mean Platelet Volume 9.1 fL (7.4-10.4); Monocytes # 0.6 10^3/uL (0.2-0.9); Neutrophils # 4.3 10^3/uL (1.8-7.7); Neutrophils % 53.7 %; Nucleated Red Blood Cells % 0 %; Platelet Count 291 10^3/cmm (130-400); Red Blood Count 4.15 10^6/uL (4.1-5.3); Red Cell Distribution Width 13.7 % (12.1-15.1)
[2020-03-23 00:40] VITALS: BP 106/64; PULSE 60; RESP 18; O2SAT 99
[2020-03-23 01:03] LABS: Add Urine Microscopic? YES; Bilirubin Urine Neg (NEGATIVE); Blood Urine 3+ (Negative); Glucose Urine UA Norm (Normal); Ketones Urine Negative (Negative); Leukocyte Esterase Urine 1+ (Negative); Nitrate Urine Negative (Negative); Protein Urine Neg (Negative); Specific Gravity, Urine 1.015 (1.005-1.030); Urine Color Yellow (Yellow); Urobilinogen Urine 4 mg/dL (Negative); pH Urine 7 (5-7)
[2020-03-23 01:18] LABS: Bacteria Urine 1+; Squamous Epithelial Cell Urine 0-4 (0-5)
[2020-03-23 01:59] VITALS: BP 100/71; PULSE 63; RESP 18; O2SAT 98
== END 2020-03-23 02:03 | disposition home or self-care (01) ==
PROVIDERS: Emergency Provider Emergency Medicine; PCP Family Medicine
DX: O20.0 Threatened abortion (principal); Z3A.10 10 weeks gestation of pregnancy; Z87.891 Personal history of nicotine dependence
CPT/HCPCS: 12345; 81001; 85025; 86900; 99282

== ENCOUNTER → 2020-04-16 11:04 | Outpatient (BNVA) | payer MEDICAID, SELFPAY | PROVIDERS: PCP Family Medicine; Visit Provider Obstetrics & Gynecology | DX: O02.1 Missed abortion (principal); Z12.4 Encounter for screening for malignant neoplasm of cervix; N76.0 Acute vaginitis; B96.89 Other specified bacterial agents as the cause of diseases classified elsewhere | CPT/HCPCS: 84702; 88175 ==

== ENCOUNTER → 2020-04-26 07:51 | Outpatient (BNVA) | payer MEDICAID, SELFPAY | PROVIDERS: PCP Family Medicine; Visit Provider Nurse Practitioner | DX: F43.12 Post-traumatic stress disorder, chronic (principal) | CPT/HCPCS: 99204 ==

== ENCOUNTER → 2020-04-27 08:11 | Outpatient (BNVA) | payer MEDICAID, SELFPAY | PROVIDERS: PCP Family Medicine; Visit Provider Counselor Professional | DX: F43.12 Post-traumatic stress disorder, chronic (principal) | CPT/HCPCS: 90834 ==

== ENCOUNTER → 2020-05-01 08:43 | Outpatient (BNVA) | payer MEDICAID, SELFPAY | PROVIDERS: PCP Family Medicine; Visit Provider Counselor Professional | DX: F43.12 Post-traumatic stress disorder, chronic (principal) | CPT/HCPCS: 90834 ==

== ENCOUNTER → 2020-05-09 08:23 | Outpatient (BNVA) | payer MEDICAID, SELFPAY | PROVIDERS: PCP Family Medicine; Visit Provider Counselor Professional | DX: F43.12 Post-traumatic stress disorder, chronic (principal) | CPT/HCPCS: 90834 ==

== ENCOUNTER → 2020-05-16 08:18 | Outpatient (BNVA) | payer MEDICAID, SELFPAY | PROVIDERS: PCP Family Medicine; Visit Provider Counselor Professional | DX: F43.12 Post-traumatic stress disorder, chronic (principal) | CPT/HCPCS: 90834 ==

== ENCOUNTER → 2020-05-29 08:19 | Outpatient (BNVA) | payer MEDICAID, SELFPAY | PROVIDERS: PCP Family Medicine; Visit Provider Counselor Professional | DX: F43.12 Post-traumatic stress disorder, chronic (principal) | CPT/HCPCS: 90834 ==

== ENCOUNTER → 2020-07-12 07:41 | Outpatient (BNVA) | payer MEDICAID, SELFPAY | PROVIDERS: PCP Family Medicine; Visit Provider Nurse Practitioner | DX: F43.12 Post-traumatic stress disorder, chronic (principal) | CPT/HCPCS: 99214 ==

== ENCOUNTER → 2020-08-03 13:58 | Outpatient (BNVA) | payer MEDICAID, SELFPAY | PROVIDERS: PCP Family Medicine; Visit Provider Obstetrics & Gynecology | DX: Z32.01 Encounter for pregnancy test, result positive (principal) | CPT/HCPCS: 81025 ==

== ENCOUNTER 2020-08-16 22:53 | Emergency (ER) | payer MEDICAID, SELFPAY ==
[2020-08-16 23:02] VITALS: BP 130/78; PULSE 95; RESP 22; TEMP 36.7; O2SAT 100; BMI 48.7
--- NOTE | 2020-08-16 23:17 | ED_ITS ---
HPI - General: Chief complaint: Vaginal Bleeding Stated complaint: 8 weeks preg/ spotting Time Seen by Provider: 08/16/20 22:54 History of Present Illness: HPI Narrative: 25-year-old female patient presents to the emergency department with onset of left flank/pelvic pain. She reports pain started prior to arrival. Reports taking Tylenol for pain due to dental pain, LMP 06/19/2020 - approx 8 weeks . DENIES vaginal bleeding MD Complaint: abdominal pain Onset (ago): day(s) (1) Pain Consistency: intermittent Location: pelvis Severity: moderate Severity scale (1-10): 5 Quality: Cramping and Aching Radiation: pelvis Relieving factors: none Exacerbating factors: none Vaginal discharge: none Vaginal bleeding: none Date of Last Menstrual Period: 06/19/20 Patient : Yes OB History - Current : no complications OB History - Previous Pregnancies: miscarriage care: followed by OB Associated symptoms: Reports other (dental pain); Deny abdominal pain, dysuria, headache(s), nausea, vaginal discharge or vomiting Review of Systems General: Reports: 10 or more systems reviewed and unremarkable except in HPI and below Const: Denies: fever(s), chills or diaphoresis Eyes: Denies: blurry vision or eye redness ENMT: Denies: throat pain, hoarseness, dental pain, ear or mastoid pain, disequilibrium, nasal discharge or nasal congestion Card: Denies: chest pain, palpitations or irregular heart rhythm Resp: Denies: dyspnea, productive cough, non-productive cough or wheezing GI: Denies: abdominal pain, nausea or vomiting : Reports: pelvic pain; Denies: difficulty voiding, dysuria, urinary urgency, urinary hesitancy, urinary incontinence, vaginal bleeding or vaginal discharge Musc: Denies: back pain Skin/Breast: Denies: rash or pruritus Neuro: Denies: headache(s), weakness in extremities or behavioral changes Gabriel/Lymph: Denies: easy bruising PFSH ED PFSH: Medical History (Updated 08/17/20 @ 00:00 by SAE Veras) Anxiety and depression Reports PTSD as well as and to anxiety and depression since about the age of 38. She follows up with a psychiatrist Dr. Beltran and symptoms are well controlled on Zoloft. She does take cyproheptadine to help her sleep. She was taking trazodone prior to the History of deep venous thrombosis or pulmonary embolus (~2013) 2013---laparoscopic procedure performed in [place]. She was 10 weeks at that time with her second . She states that she had severe jaundice and was transported from [facility] to [place] where she had a cholecystectomy performed. She then had to have an ERCP done 1 to 2 days after her laparoscopic procedure as she continued to get worse. She ended up being in the hospital for about 1 week. Upon discharge the same day she developed shortness of breath and when she returned to the emergency room she was diagnosed with a PE. She was placed on blood thinners for the remainder of the as well as for 3 to 6 months afterwards-she is not sure. She has not been on blood thinners since . - In 2013 and denies any other DVT/PEs. No pertinent past medical history Patient denies history of: hypertension, hypercholesterolemia, lung, liver, kidney, thyroid, heart problems, genital herpes. PMD: None Post-traumatic stress disorder, chronic Surgical History History of cholecystectomy 2013---laparoscopic procedure performed in [place]. She was 10 weeks at that time with her second . She states that she had severe jaundice and was transported from [facility] to [place] where she had a cholecystectomy performed. She then had to have an ERCP done 1 to 2 days after her laparoscopic procedure as she continued to get worse. She ended up being in the hospital for about 1 week. Upon discharge the same day she developed shortness of breath and when she returned to the emergency room she was diagnosed with a PE. She was placed on blood thinners for the remainder of the as well as for 3 to 6 months afterwards-she is not sure. Family History Family/Other Diabetes Maternal aunt Hypertension Maternal aunt Family history of thyroid problem Maternal aunt Mother Family history of thyroid problem Grandmother Family history of thyroid problem Paternal grandmother Maternal grandmother Denies family history of Colon cancer Ovarian cancer Heart disease Hyperlipidemia Breast cancer Uterine cancer Stroke Social History Smoking and tobacco status: former smoker Quit status (tobacco): has quit using tobacco Former quit date comment: January 2020-- 2ppd Alcohol intake: never Current gender identity: Female Additional social history: - Tobacco Use: Started smoking at age 16 and smoked 1/2 pack per day off and on si nce then until she quit 02/2020 when she found out she was . Miscarried in March 2020 and resumed smoking at that time. Currently smokes 1/2 pack per day. 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 Gingival edema/erythema, tooth avulsion noted Eye: COMMON NORMALS: Equal, round and reactive pupils present and EOMs intact bilaterally GENERAL EYE: appearance normal, both eyes and all related structures PUPIL: Yes Equal, round and reactive pupils present Neck/C-Spine: COMMON NORMALS: full ROM and no lymphadenopathy GENERAL: Yes normal visual inspection and Yes trachea midline CERVICAL SPINE: Yes cervical ROM normal Lymph: LYMPHATIC: no lymphadenopathy noted Chest: COMMONS NORMALS: normal inspection of the chest Resp: COMMON NORMALS: normal respiratory effort and clear to auscultation bilaterally AUSCULTATION: clear to auscultation bilaterally Cardio: COMMON NORMALS: regular rhythm, S1 normal heart sound present and S2 normal heart sound present RHYTHM: regular rhythm HEART SOUNDS: S1 normal heart sound present and S2 normal heart sound present GI: COMMON NORMALS: Normal to inspection, nondistended, normoactive bowel sounds present, Soft to palpation and non-tender INSPECTION: Yes normal to inspection PALPATION: Yes Soft to palpation : COMMON NORMALS: Yes no CVA tenderness BLADDER/KIDNEY EXAM: Yes no CVA tenderness Back/Pelvis: COMMON NORMALS: no CVA tenderness and thoracic and lumbar spine normal to inspection Extremity: COMMON NORMALS: normal to inspection and capillary refill normal Neuro: COMMON NORMALS: patient oriented x3 and no focal motor deficits SENSORIUM/ORIENTATION: Yes alert Psych: COMMON NORMALS: mental status grossly normal, Normal thought process present and cooperative APPEARANCE: Yes well kempt ACTIVITY/MOTOR BEHAVIOR: Yes appropriate eye contact THOUGHT PROCESS: Normal thought process present Skin: COMMON NORMALS: no rashes or lesions noted and turgor normal GENERAL SKIN EXAM: no rashes or lesions noted and turgor normal Course ED course: 25-year-old female patient presents to the emergency department with complaints of dental pain and pelvic pain. Rh+ per previous visits. Portable pelvic ultrasound completed in the ED, 8-week intrauterine with cardiac activity noted. UTI appreciated on urinalysis, CBC and CMP without abnormalities. Urine culture pending. Discussed with patient need to follow-up with dentistry in 10 days. Supportive therapy discussed, advised to return to the emergency department if she develops worsening pelvic pain, vaginal bleeding or difficulty breathing. Verbalized understanding, plans to follow-up with her [employer] as scheduled 08/21/2020. She was treated with hydrocodone in the ED, pain subsided, prescription for hydrocodone given - case d/w Dr Fregoso. Vital Signs: Vital signs: Vital Signs Temperature 98.0 F 08/16/20 23:02 Pulse Rate 95 08/16/20 23:02 Respiratory Rate 22 H 08/16/20 23:02 Blood Pressure 130/78 08/16/20 23:02 Pulse Oximetry 100 08/16/20 23:02 MDM - OB/Uterine Contractions Lab Data: Labs: Lab Results 08/16/20 08/16/20 08/16/20 Range/Units 23:13 23:13 23:25 WBC 10.9 H (4.0-10.0) 10^3/ uL RBC 4.46 (4.1-5.3) 10^6/u L Hgb 13.2 (11.5-15.3) g/dL Hct 40.3 (37.0-47.0) % MCV 90.4 (81-99) fL MCH 29.6 (28.0-34.0) pg MCHC 32.8 (30.0-36.0) g/dL RDW 13.8 (12.1-15.1) % Plt Count 316 (130-400) 10^3/c mm MPV 9.1 (7.4-10.4) fL Neut % (Auto) 66.8 % Lymph % (Auto) 21.5 % [place] % (Auto) 7.6 % Eos % (Auto) 3.3 % Baso % (Auto) 0.4 % Neut # (Auto) 7.25 (1.8-7.7) 10^3/u L Lymph # (Auto) 2.3 (0.8-4.8) 10^3/u L [place] # (Auto) 0.8 (0.2-0.9) 10^3/u L Eos # (Auto) 0.4 (0.0-0.8) 10^3/u L Baso # (Auto) 0.0 (0.0-0.1) 10^3/u L Nucleated RBC % (a uto) 0 % Nucleated RBCs # 0.0 /100WBC Sodium 136 (136-145) mmol/L Potassium 3.5 (3.5-5.1) mmol/L Chloride 104 (98-107) mmol/L Carbon Dioxide 22 (22-29) mmol/L Anion Gap 13.5 (5-19) BUN 10 (6-20) mg/dL Creatinine 0.7 (0.5-0.9) mg/dL GFR Calculation 100.4 (90-130) mL/min Glucose 97 (65-115) mg/dL Calculated Osmolal ity 281 L (285-295) mOsm/k g Calcium 8.8 (8.5-10.5) mg/dL Total Bilirubin 0.2 (0.15-1.2) mg/dL AST 13 (0-32) U/L ALT 10 (0-33) U/L Alkaline Phosphata se 75 (35-105) IU/L Total Protein 7.2 (6.6-8.7) g/dL Albumin 3.9 (3.5-5.2) g/dL Globulin 3.3 (1.3-4.6) g/dL Ser , [place] [address].00 mIU/mL Urine Color Yellow (Yellow) Urine Appearance Hazy A (CLEAR) Urine pH 5 (5-7) Ur Specific Gravit y 1.015 (1.005-1.030) Urine Protein Neg (Negative) Urine Glucose (UA) Norm (Normal) Urine Ketones Negative (Negative) Urine Blood Neg (Negative) Urine Nitrate Negative (Negative) Urine Bilirubin Neg (Negative) Urine Urobilinogen Norm (Negative) mg/dL Ur Leukocyte Joseline ase 2+ H (Negative) Urine RBC 0-4 H (0-2) /hpf Urine WBC >100 H (0-5) /hpf Ur Squamous Epith Cells 25-40 H (0-5) /hpf Amorphous Sediment Not Reportable Urine Bacteria 2+ H (NONE) /hpf Discharge Plan Discharge Patient Disposition: Home Clinical Impression: Pain, dental Avulsed tooth Qualifiers: Encounter type: initial encounter Qualified Code(s): S03.2XXA - Dislocation of tooth, initial encounter Pelvic pain affecting Qualifiers: Trimester: first trimester Qualified Code(s): O26.891 - Other specified related conditions, first trimester UTI (urinary tract infection) Qualifiers: Urinary tract infection type: acute cystitis Hematuria presence: with hematuria Qualified Code(s): N30.01 - Acute cystitis with hematuria Condition: Stable Prescriptions: New hydrocodone-acetaminophen 5-325 mg tablet 1 tab PO Q6H PRN (Reason: pain) Qty: 10 RF: 0 cefdinir 300 mg capsule 300 mg PO BID 10 Days Qty: 20 RF: 0 No Action hydroxyzine HCl 25 mg tablet 25 mg PO .HS PRN (Reason: anxiety) Qty: 30 RF: 1 prazosin 1 mg capsule 1 mg PO .HS Qty: 30 RF: 1 prazosin 2 mg capsule 2 mg PO .HS Qty: 30 RF: 1 sertraline [Zoloft] 100 mg tablet 200 mg PO DAILY Qty: 60 RF: 1 trazodone 100 mg tablet 100 mg PO .HS Qty: 30 RF: 1 zinc gluconate 30 mg tablet 30 mg PO DAILY Qty: 30 RF: 0 metronidazole [Flagyl] 500 mg tablet 500 mg PO BID 7 Days Qty: 14 RF: 0 Referrals: Vashti Hodge DO [Primary Care Provider] - Discharge Diet: Usual diet and GI Soft Discharge Activity: Resume usual activity Patient Instructions: (ED), Toothache (ED), Pelvic Pain Activity Restrictions/Additional Instructions: #1 warm salt water swish and spit several times daily. May alternate with hydrogen peroxide. #2 take antibiotics until all gone #3 make sure to follow up with your dentist within 10 days #4 avoid chewing on the affected side #5 warm compresses to the affected side of the face may help with pain #6 sleeping with the head of the bed elevated may help to decrease facial swelling #7 return to the emergency room immediately if you have any difficulty breathing, swelling of the throat, swelling of the neck or chin, or failure to improve within [] days. #8 avoid hot or cold foods and drinks #9 may use dental wax to wrap around the affected teeth or tooth. This may help with sensitivity. Drink lots of fluids to avoid dehydration Antibiotics until all gone Follow-up with your primary care provider next week for follow-up Return to the emergency department if you develop worsening pelvic pain, vaginal bleeding, or vomiting Coding Level of Care Code ED Medical Supply Technician for Charu Escobar Exam Comprehensive
[2020-08-16 23:23] LABS: Basophils % 0.4 %; Eosinophils # 0.4 10^3/uL (0.0-0.8); Eosinophils % 3.3 %; Hematocrit 40.3 % (37.0-47.0); Hemoglobin 13.2 g/dL (11.5-15.3); Lymphocytes # 2.3 10^3/uL (0.8-4.8); Lymphocytes % 21.5 %; Mean Corpuscular HGB Conc 32.8 g/dL (30.0-36.0); Mean Corpuscular Hemoglobin 29.6 pg (28.0-34.0); Mean Corpuscular Volume 90.4 fL (81-99); Mean Platelet Volume 9.1 fL (7.4-10.4); Monocytes # 0.8 10^3/uL (0.2-0.9); Monocytes % 7.6 %; Neutrophils # 7.25 10^3/uL (1.8-7.7); Neutrophils % 66.8 %; Nucleated Red Blood Cells % 0 %; Platelet Count 316 10^3/cmm (130-400); Red Blood Count 4.46 10^6/uL (4.1-5.3); Red Cell Distribution Width 13.8 % (12.1-15.1); White Blood Count 10.9 10^3/uL (4.0-10.0)
[2020-08-16] MEDS: HYDROcodone-acetaminophen 5-325 mg Tablet 1 TAB PO (23:41)
[2020-08-16 23:46] LABS: Add Urine Microscopic? YES; Bilirubin Urine Neg (Negative); Blood Urine Neg (Negative); Glucose Urine UA Norm (Normal); Ketones Urine Negative (Negative); Leukocyte Esterase Urine 2+ (Negative); Nitrate Urine Negative (Negative); Protein Urine Neg (Negative); Specific Gravity, Urine 1.015 (1.005-1.030); Urine Appearance Hazy (CLEAR); Urine Color Yellow (Yellow); Urobilinogen Urine Norm (Negative); pH Urine 5 (5-7)
[2020-08-16 23:47] LABS: RBC Urine 0-4 /hpf (0-2); WBC Urine >100 /hpf (0-5)
[2020-08-16 23:48] LABS: Add Urine Culture? No; Bacteria Urine 2+ /hpf; Squamous Epithelial Cell Urine 25-40 /hpf (0-5)
[2020-08-16 23:58] LABS: Alanine Aminotransferase 10 U/L (0-33); Albumin Level 3.9 g/dL (3.5-5.2); Alkaline Phosphatase 75 IU/L (35-105); Anion Gap 13.5 (5-19); Aspartate Amino Transferase 13 U/L (0-32); Blood Urea Nitrogen 10 mg/dL (6-20); Calcium 8.8 mg/dL (8.5-10.5); Carbon Dioxide 22 mmol/L (22-29); Chloride 104 mmol/L (98-107); Globulin 3.3 g/dL (1.3-4.6); Glomerular Filtration Rate 100.4 mL/min (90-130); Glucose 97 mg/dL (65-115); Osmolality Calculated 281 mOsm/kg (285-295); Potassium 3.5 mmol/L (3.5-5.1); Sodium 136 mmol/L (136-145); Total Bilirubin 0.2 mg/dL (0.15-1.2); Total Protein 7.2 g/dL (6.6-8.7)
[2020-08-17 01:02] VITALS: PULSE 80; RESP 16
[2020-08-17] MEDS: cefTRIAXone 1,000 mg SDV 1000 MG IM (01:07)
[2020-08-17 01:08] VITALS: BP 128/96; PULSE 68; RESP 17; O2SAT 100
== END 2020-08-17 01:07 | disposition home or self-care (01) ==
PROVIDERS: Emergency Medicine; Emergency Provider Nurse Practitioner Family; PCP Family Medicine
DX: O26.891 Other specified pregnancy related conditions, first trimester (principal); O23.11 Infections of bladder in pregnancy, first trimester; O9A.211 Injury, poisoning and certain other consequences of external causes complicating pregnancy, first trimester; S03.2XXA Dislocation of tooth, initial encounter; Z3A.08 8 weeks gestation of pregnancy; Z87.891 Personal history of nicotine dependence; X58.XXXA Exposure to other specified factors, initial encounter
CPT/HCPCS: 12345; 36415; 80053; 81001; 84702; 85025; 96372; 99282; 99283; J0696

== ENCOUNTER 2020-09-01 19:14 | Emergency (ER) | payer MEDICAID, SELFPAY ==
[2020-09-01 19:23] VITALS: BP 126/77; PULSE 90; RESP 14; TEMP 37.1; O2SAT 100; BMI 51.7
--- NOTE | 2020-09-01 19:47 | USR_ITS ---
PROCEDURE INFORMATION: Exam: US First Trimester, Transabdominal Exam date and time: 09/01/2020 9:39 PM Age: 25 years old Clinical indication: Lmp or gestational age (in weeks): 10w 3d; Antepartum complications; Other: Light pink spotting and llq pain; ; Additional info: Cramping vaginal bleeding TECHNIQUE: Imaging protocol: Real-time transabdominal obstetrical ultrasound of the maternal pelvis and a first trimester , less than 14 weeks 0 days, with image documentation. COMPARISON: US OB <= 14 weeks fetus [facility] 08/21/2020 2:52 PM FINDINGS: Single living intrauterine fetus. [place] rump length of 3.5 estimates age at 10 weeks, 3 days. heart activity documented by the technologist, 171 bpm. Amniotic fluid appears adequate for gestation. No definite/significant uterine abnormality. No significant subchorionic hematoma visualized. Small cyst in the left ovary, measuring 29 x 30 x 28 mm. Blood flow detected in the left ovary. Right ovary not visualized at this time. Adnexal regions otherwise appear essentially unremarkable on the provided images. The urinary bladder was not completely evaluated/imaged at this time. US/US OB <= 14 weeks fetus [id number] IMPRESSION: 1. Single living intrauterine fetus, 10 weeks, 3 days estimated age. 2. Left ovarian cyst, details above. 3. Other details discussed above.
--- NOTE | 2020-09-01 19:49 | ED_ITS ---
HPI - Abdominal Pain General: Chief Complaint: Abdominal Pain Stated Complaint: 10 WKS PREG, CRAMPING Time Seen by Provider: 09/01/20 19:35 History of Present Illness: HPI narrative: 25-year-old female at 10 weeks known IUP presenting with cramping and mild vaginal bleeding today. She states the pain started yesterday, and was intermittent contractions. Today it is more of a pain starting on her left side and radiating towards the right. She noticed some pink to red discharge this morning. No passage of clots or tissue. No other discharge. No fever. MD elicited complaint: abdominal pain Pertinent past history: other Onset (ago): hour(s) Pain Consistency: intermittent Location: LLQ Severity: moderate Quality: cramping and stabbing Radiation: RLQ Migration to: no migration Exacerbating factors: nothing Relieving factors: nothing Associated Symptoms: Reports nausea; Denies constipation, diarrhea, dysuria, fever(s), hematuria and vomiting Related Data: Date of Last Menstrual Period: 06/19/20 Review of Systems Const: Denies: fever(s) Eyes: Denies: change in vision ENMT: Denies: odynophagia, swelling of lips/tongue, bleeding gums, change in hearing or sinus pain Card: Denies: chest pain, palpitations or irregular heart rhythm Resp: Denies: dyspnea, productive cough, non-productive cough or wheezing GI: Reports: nausea; Denies: vomiting, diarrhea or constipation : Denies: dysuria or hematuria Musc: Reports: back pain; Denies: neck pain Skin/Breast: Denies: rash, pruritus or erythema Neuro: Denies: headache(s), dizziness or vertigo Psych: Denies: anxiety PFSH ED PFSH: Medical History (Updated 09/01/20 @ 23:28 by Xavi Gabriel DO) Anxiety and depression Reports PTSD as well as and to anxiety and depression since about the age of 38. She follows up with a psychiatrist Dr. Beltran and symptoms are well controlled on Zoloft. She does take cyproheptadine to help her sleep. She was taking trazodone prior to the History of deep venous thrombosis or pulmonary embolus (~2013---laparoscopic procedure performed in [place]. She was 10 weeks at that time with her second . She states that she had severe jaundice and was transported from [facility] to [place] where she had a cholecystectomy performed. She then had to have an ERCP done 1 to 2 days after her laparoscopic procedure as she continued to get worse. She ended up being in the hospital for about 1 week. Upon discharge the same day she developed shortness of breath and when she returned to the emergency room she was diagnosed with a PE. She was placed on blood thinners for the remainder of the as well as for 3 to 6 months afterwards-she is not sure. She has not been on blood thinners since . - In 2013 and denies any other DVT/PEs. No pertinent past medical history Patient denies history of: hypertension, hypercholesterolemia, lung, liver, kidney, thyroid, heart problems, genital herpes. PMD: None Post-traumatic stress disorder, chronic Surgical History History of cholecystectomy 2013---laparoscopic procedure performed in [place]. She was 10 weeks at that time with her second . She states that she had severe jaundice and was transported from [facility] to [place] where she had a cholecystectomy performed. She then had to have an ERCP done 1 to 2 days after her laparoscopic procedure as she continued to get worse. She ended up being in the hospital for about 1 week. Upon discharge the same day she developed shortness of breath and when she returned to the emergency room she was diagnosed with a PE. She was placed on blood thinners for the remainder of the as well as for 3 to 6 months afterwards-she is not sure. Family History Family/Other Diabetes Maternal aunt Hypertension Maternal aunt Family history of thyroid problem Maternal aunt Mother Family history of thyroid problem Grandmother Family history of thyroid problem Paternal grandmother Maternal grandmother Denies family history of Colon cancer Ovarian cancer Heart disease Hyperlipidemia Breast cancer Uterine cancer Stroke Social History Smoking and tobacco status: former smoker Quit status (tobacco): has quit using tobacco Former quit date comment: January 2020-- 1/2ppd Alcohol intake: never Current gender identity: Female Additional social history: - Tobacco Use: Started smoking at age 16 and smoked 1/2 pack per day off and on since then until she quit 02/2020 when she found out she was . Miscarried in March 2020 and resumed smoking at that time. Currently smokes 1/2 pack per day. 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 Reproductive History: Date of last menstrual period: 06/19/20 Physical Exam Const: GENERAL APPEARANCE: well developed ORIENTATION/CONSCIOUSNESS: Yes oriented to person, Yes oriented to place and Yes oriented to time HENMT: COMMON NORMALS: normocephalic, external ears normal and Normal external nose present HEAD & SCALP: normocephalic; no scalp tenderness FACE & SINUS: normal facial exam NOSE: Normal external nose present and No nasal discharge present EXTERNAL EAR: Yes external ears normal Eye: COMMON NORMALS: Equal, round and reactive pupils present, EOMs intact bilaterally and conjunctivae normal EYELID: eyelids normal CONJUNCTIVA: Yes conjunctivae normal PUPIL: Yes Equal, round and reactive pupils present Neck/C-Spine: GENERAL: No tracheal deviation Chest: COMMONS NORMALS: normal inspection of the chest CHEST: No tenderness Resp: COMMON NORMALS: clear to auscultation bilaterally EFFORT & INSPECTION: No tachypneic, No respiratory distress, No retractions, No uses accessory muscles and No tracheal deviation AUSCULTATION: clear to auscultation bilaterally, no rhonchi, no wheezes and lung sounds not diminished Cardio: COMMON NORMALS: regular rate and regular rhythm RATE: regular rate RHYTHM: regular rhythm HEART SOUNDS: no murmurs PERIPHERAL PULSES: radial pulses present GI: INSPECTION: No abdominal distension AUSCULTATION: No Hyperactive bowel sounds present and No Hypoactive bowel sounds present PALPATION: Yes Tenderness to palpation present (GI) Details: LLQ, No Guarding due to palpation present (GI) and No Rigid due to palpation PERCUSSION: no dullness to percussion and no tympanic to percussion Neuro: SENSORIUM/ORIENTATION: Yes oriented to person, Yes oriented to place and Yes oriented to time Psych: COMMON NORMALS: mental status grossly normal Skin: COMMON NORMALS: no rashes or lesions noted GENERAL SKIN EXAM: no rashes or lesions noted Course Vital Signs: Vital signs: Vital Signs Temperature 98.7 F 09/01/20 19:23 Pulse Rate 92 09/02/20 00:45 Respiratory Rate 16 09/02/20 00:45 Blood Pressure 120/81 09/02/20 00:45 Pulse Oximetry 97 09/02/20 00:45 MDM - Abdominal Pain MDM Narrative: Medical decision making narrative: Ultrasound shows an IUP with a heart rate of around 170. Dates are appropriate. She has a left ovarian cyst. It does not appear to be a chocolate or hemorrhagic cyst. No pelvic free fluid. No continued bleeding. The patient was tender over the left lower quadrant right over the ovarian cyst 1 ultrasounding. She also has a urinary tract infection although her urine is moderately contaminated. We will go ahead and treat her. Pelvic rest. She will be discharged. Lab Data: Labs: Lab Results 09/01/20 09/01/20 09/01/20 Range/Units 21:04 21:45 21:45 WBC 9.1 (4.0-10.0) 10^3/ uL RBC 4.35 (4.1-5.3) 10^6/u L Hgb 12.8 (11.5-15.3) g/dL Hct 39.4 (37.0-47.0) % MCV 90.6 (81-99) fL MCH 29.4 (28.0-34.0) pg MCHC 32.5 (30.0-36.0) g/dL RDW 13.8 (12.1-15.1) % Plt Count 304 (130-400) 10^3/c mm MPV 9.2 (7.4-10.4) fL Neut % (Auto) 61.7 % Lymph % (Auto) 27.7 % [place] % (Auto) 6.3 % Eos % (Auto) 3.6 % Baso % (Auto) 0.4 % Neut # (Auto) 5.60 (1.8-7.7) 10^3/u L Lymph # (Auto) 2.5 (0.8-4.8) 10^3/u L [place] # (Auto) 0.6 (0.2-0.9) 10^3/u L Eos # (Auto) 0.3 (0.0-0.8) 10^3/u L Baso # (Auto) 0.0 (0.0-0.1) 10^3/u L Nucleated RBC % (a uto) 0 % Nucleated RBCs # 0.0 /100WBC Sodium 138 (136-145) mmol/L Potassium 3.6 (3.5-5.1) mmol/L Chloride 107 (98-107) mmol/L Carbon Dioxide 21 L (22-29) mmol/L Anion Gap 13.6 (5-19) BUN 6 (6-20) mg/dL Creatinine 0.6 (0.5-0.9) mg/dL GFR Calculation 119.9 (90-130) mL/min Glucose 95 (65-115) mg/dL Calculated Osmolal ity 283 L (285-295) mOsm/k g Calcium 8.4 L (8.5-10.5) mg/dL Total Bilirubin 0.2 (0.15-1.2) mg/dL AST 12 (0-32) U/L ALT 7 (0-33) U/L Alkaline Phosphata se 69 (35-105) IU/L Total Protein 6.1 L (6.6-8.7) g/dL Albumin 3.3 L (3.5-5.2) g/dL Globulin 2.8 (1.3-4.6) g/dL Lipase 23 (13-60) U/L Ser , Sadia i-Qnt mIU/mL Urine Color Yellow (Yellow) Urine Appearance Sl cloudy A (CLEAR) Urine pH 5 (5-7) Ur Specific Gravit y 1.025 (1.005-1.030) Urine Protein Neg (Negative) Urine Glucose (UA) Norm (Normal) Urine Ketones Negative (Negative) Urine Blood 3+ H (Negative) Urine Nitrate Negative (Negative) Urine Bilirubin Neg (Negative) Urine Urobilinogen Norm (Negative) mg/dL Ur Leukocyte Joseline ase 2+ H (Negative) Urine RBC 15-25 H (0-2) /hpf Urine WBC 25-40 H (0-5) /hpf Ur Squamous Epith Cells >100 H (0-5) /hpf Amorphous Sediment Not Reportable Urine Bacteria 1+ H (NONE) /hpf Blood Type Rho(D) Type 09/01/20 09/01/20 Range/Units 21:45 22:48 WBC (4.0-10.0) 10^3/ uL RBC (4.1-5.3) 10^6/u L Hgb (11.5-15.3) g/dL Hct (37.0-47.0) % MCV (81-99) fL MCH (28.0-34.0) pg MCHC (30.0-36.0) g/dL RDW (12.1-15.1) % Plt Count (130-400) 10^3/c mm MPV (7.4-10.4) fL Neut % (Auto) % Lymph % (Auto) % [place] % (Auto) % Eos % (Auto) % Baso % (Auto) % Neut # (Auto) (1.8-7.7) 10^3/u L Lymph # (Auto) (0.8-4.8) 10^3/u L [place] # (Auto) (0.2-0.9) 10^3/u L Eos # (Auto) (0.0-0.8) 10^3/u L Baso # (Auto) (0.0-0.1) 10^3/u L Nucleated RBC % (a uto) % Nucleated RBCs # /100WBC Sodium (136-145) mmol/L Potassium (3.5-5.1) mmol/L Chloride (98-107) mmol/L Carbon Dioxide (22-29) mmol/L Anion Gap (5-19) BUN (6-20) mg/dL Creatinine (0.5-0.9) mg/dL GFR Calculation (90-130) mL/min Glucose (65-115) mg/dL Calculated Osmolal ity (285-295) mOsm/k g Calcium (8.5-10.5) mg/dL Total Bilirubin (0.15-1.2) mg/dL AST (0-32) U/L ALT (0-33) U/L Alkaline Phosphata se (35-105) IU/L Total Protein (6.6-8.7) g/dL Albumin (3.5-5.2) g/dL Globulin (1.3-4.6) g/dL Lipase (13-60) U/L Ser , Sadia i[place]Qnt 85373.00 mIU/mL Urine Color (Yellow) Urine Appearance (CLEAR) Urine pH (5-7) Ur Specific Gravit y (1.005-1.030) Urine Protein (Negative) Urine Glucose (UA) (Normal) Urine Ketones (Negative) Urine Blood (Negative) Urine Nitrate (Negative) Urine Bilirubin (Negative) Urine Urobilinogen (Negative) mg/dL Ur Leukocyte Joseline ase (Negative) Urine RBC (0-2) /hpf Urine WBC (0-5) /hpf Ur Squamous Epith Cells (0-5) /hpf Amorphous Sediment Urine Bacteria (NONE) /hpf Blood Type A Positive Rho(D) Type Positive Discharge Plan Discharge Patient Disposition: Home Clinical Impression: Intrauterine UTI (urinary tract infection) Qualifiers: Urinary tract infection type: acute cystitis Hematuria presence: without hematuria Qualified Code(s): N30.00 - Acute cystitis without hematuria Condition: Stable Prescriptions: New cefdinir 300 mg capsule 300 mg PO Q12H 7 Days Qty: 14 RF: 0 Reglan 10 mg tablet 10 mg PO Q6H PRN (Reason: nausea and vomiting) Qty: 10 RF: 0 [place] 5-325 mg tablet 1 tab PO Q8H PRN (Reason: pain) Qty: 10 RF: 0 No Action hydroxyzine HCl 25 mg tablet 25 mg PO .HS PRN (Reason: anxiety) Qty: 30 RF: 1 prazosin 1 mg capsule 1 mg PO .HS Qty: 30 RF: 1 prazosin 2 mg capsule 2 mg PO .HS Qty: 30 RF: 1 sertraline [Zoloft] 100 mg tablet 200 mg PO DAILY Qty: 60 RF: 1 trazodone 100 mg tablet 100 mg PO .HS Qty: 30 RF: 1 zinc gluconate 30 mg tablet 30 mg PO DAILY Qty: 30 RF: 0 metronidazole [Flagyl] 500 mg tablet 500 mg PO BID 7 Days Qty: 14 RF: 0 hydrocodone-acetaminophen 5-325 mg tablet 1 tab PO Q6H PRN (Reason: pain) Qty: 10 RF: 0 Discharge Orders: Discharge Order (Routine); Ordered 09/01/20 Ordered By: Xavi Gabriel Referrals: Terry Celestin MD [Physician] - 4-7 days Vashti Hodge DO [Primary Care Provider] - Discharge Diet: Advance as tolerated Discharge Activity: Resume usual activity Patient Instructions: (ED), Urinary Tract Infection in Women (ED) Activity Restrictions/Additional Instructions: Pelvic rest (no sexual intercourse, limit stairs, bending, and lifting greater than 10 pounds) until cleared by your physician. Return to the emergency room for worsening vaginal bleeding, fever greater than 100 despite 2 doses of antibiotics, worsening pain despite treatment, vomiting liquids or medications, other concerning symptoms. Discharge Date/Time: 09/02/20 00:45 Coding Level of Care Code ED Asphalt Mixer for Chg Fwd Exam Comprehensive
[2020-09-01] MEDS: sodium chloride 0.9% 1,000 ML 999 ML IV (20:45)
[2020-09-01 22:07] LABS: Basophils % 0.4 %; Eosinophils # 0.3 10^3/uL (0.0-0.8); Eosinophils % 3.6 %; Hematocrit 39.4 % (37.0-47.0); Hemoglobin 12.8 g/dL (11.5-15.3); Lymphocytes # 2.5 10^3/uL (0.8-4.8); Lymphocytes % 27.7 %; Mean Corpuscular HGB Conc 32.5 g/dL (30.0-36.0); Mean Corpuscular Hemoglobin 29.4 pg (28.0-34.0); Mean Corpuscular Volume 90.6 fL (81-99); Mean Platelet Volume 9.2 fL (7.4-10.4); Monocytes # 0.6 10^3/uL (0.2-0.9); Monocytes % 6.3 %; Neutrophils % 61.7 %; Nucleated Red Blood Cells % 0 %; Platelet Count 304 10^3/cmm (130-400); Red Blood Count 4.35 10^6/uL (4.1-5.3); Red Cell Distribution Width 13.8 % (12.1-15.1); White Blood Count 9.1 10^3/uL (4.0-10.0)
[2020-09-01 22:21] LABS: Bilirubin Urine Neg (Negative); Blood Urine 3+ (Negative); Glucose Urine UA Norm (Normal); Ketones Urine Negative (Negative); Nitrate Urine Negative (Negative); Protein Urine Neg (Negative); Specific Gravity, Urine 1.025 (1.005-1.030); Urine Color Yellow (Yellow); pH Urine 5 (5-7)
[2020-09-01 22:22] LABS: Add Urine Microscopic? YES; Leukocyte Esterase Urine 2+ (Negative); Urobilinogen Urine Norm (Negative)
[2020-09-01 22:23] LABS: Add Urine Culture? No; Bacteria Urine 1+ /hpf; RBC Urine 15-25 /hpf (0-2); Squamous Epithelial Cell Urine >100 /hpf (0-5); WBC Urine 25-40 /hpf (0-5)
[2020-09-01 22:29] LABS: Alanine Aminotransferase 7 U/L (0-33); Albumin Level 3.3 g/dL (3.5-5.2); Alkaline Phosphatase 69 IU/L (35-105); Anion Gap 13.6 (5-19); Aspartate Amino Transferase 12 U/L (0-32); Blood Urea Nitrogen 6 mg/dL (6-20); Calcium 8.4 mg/dL (8.5-10.5); Carbon Dioxide 21 mmol/L (22-29); Chloride 107 mmol/L (98-107); Creatinine Clr Calc Pharmacy 229.5035; Globulin 2.8 g/dL (1.3-4.6); Glomerular Filtration Rate 119.9 mL/min (90-130); Glucose 95 mg/dL (65-115); Lipase 23 U/L (13-60); Osmolality Calculated 283 mOsm/kg (285-295); Potassium 3.6 mmol/L (3.5-5.1); Sodium 138 mmol/L (136-145); Total Bilirubin 0.2 mg/dL (0.15-1.2); Total Protein 6.1 g/dL (6.6-8.7)
[2020-09-01 23:00] VITALS: BP 126/84; RESP 20; O2SAT 99
--- NOTE | 2020-09-01 23:29 | PC.NURSE ---
during pt rounding, pt requesting meds for pain and nausea 4/10 pain scale. notified
[2020-09-02] MEDS: cefTRIAXone 1,000 MG in sodium chloride 0.9% (plus) 50 ML 100 MG IV (00:20)
[2020-09-02 00:21] VITALS: RESP 18; O2SAT 97
[2020-09-02] MEDS: morphine 4 mg/mL SDV 1 mL IVP (00:21)
[2020-09-02] MEDS: ondansetron 2 mg/ML SDV 2 mL 4 MG IVP (00:21)
[2020-09-02 00:45] VITALS: BP 120/81; PULSE 92; RESP 16; O2SAT 97
== END 2020-09-02 00:45 | disposition home or self-care (01) ==
PROVIDERS: Emergency Provider Emergency Medicine; PCP Family Medicine
DX: O23.11 Infections of bladder in pregnancy, first trimester (principal); Z3A.10 10 weeks gestation of pregnancy; Z87.891 Personal history of nicotine dependence
CPT/HCPCS: 12345; 36415; 76801; 80053; 81001; 83690; 84702; 85025; 86900; 96365; 96375; 99282; 99283; J0696; J2270; J2405; J7030

== ENCOUNTER → 2020-09-03 08:48 | Outpatient (BNVA) | payer MEDICAID, SELFPAY | PROVIDERS: PCP Family Medicine; Visit Provider Counselor Professional | DX: F43.12 Post-traumatic stress disorder, chronic (principal) | CPT/HCPCS: 90834 ==

== ENCOUNTER → 2020-09-10 08:21 | Outpatient (BNVA) | payer MEDICAID, SELFPAY | PROVIDERS: PCP Family Medicine; Visit Provider Nurse Practitioner | DX: O09.91 Supervision of high risk pregnancy, unspecified, first trimester (principal) | CPT/HCPCS: 84315; 87210; 87491; 87591 ==

== ENCOUNTER → 2020-09-14 08:28 | Outpatient (BNVA) | payer MEDICAID, SELFPAY | PROVIDERS: PCP Family Medicine; Visit Provider Nurse Practitioner Women's Health | DX: Z34.90 Encounter for supervision of normal pregnancy, unspecified, unspecified trimester (principal) | CPT/HCPCS: 80053; 80307; 82950; 84315; 86592; 86762; 86803; 86850; 86900; 87340; 87806 ==

== ENCOUNTER 2020-09-27 19:44 | Emergency (ER) | payer MEDICAID, SELFPAY ==
[2020-09-27 19:48] VITALS: BP 136/84; PULSE 96; RESP 18; TEMP 36.9; O2SAT 97; BMI 50.2
--- NOTE | 2020-09-27 20:17 | ED_ITS ---
HPI - General: Chief complaint: Vaginal Bleeding Stated complaint: irregular vaginal bleeding, 14 weeks preg Time Seen by Provider: 09/27/20 20:03 Source: patient Mode of arrival: ambulatory Limitations: no limitations History of Present Illness: HPI Narrative: 25-year-old female who is roughly 14 weeks states she had some slight bleeding earlier today that is improved. States she had some lower abdominal cramping as well. She has had bleeding throughout this . This is her fourth and had 1 previous miscarriage. She denies any large clots denies passing any tissue. Denies any worsening or improving factors. Date of Last Menstrual Period: 06/19/20 Associated symptoms: Deny abdominal pain, headache(s), nausea or vomiting Review of Systems Const: Denies: fever(s), chills, body aches or change in appetite Eyes: Denies: blurry vision or eye discomfort ENMT: Denies: throat pain or dental pain Card: Denies: chest pain Resp: Denies: dyspnea GI: Denies: abdominal pain, nausea, vomiting or diarrhea : Reports: vaginal bleeding Musc: Denies: neck pain or back pain Skin/Breast: Denies: rash Neuro: Denies: headache(s) Psych: Denies: depression Gabriel/Lymph: Denies: easy bruising All/Imm: Denies: urticaria PFSH ED PFSH: Medical History Anxiety and depression Reports PTSD, anxiety, and depression. Sees psychiatrist, Dr. Beltran. Treated with prazosin, Zoloft, and trazodone. History of deep venous thrombosis or pulmonary embolus (~2013) Developed PE in 2013 after being hospitalized for approximately 1 week after having laparoscopic cholecystectomy with ERCP while . Hospitalized in [employer]. Was on anticoagulants rest of and for a few months afterwards. No further PE or DVT Post-traumatic stress disorder, chronic Surgical History Hx laparoscopic cholecystectomy (~2013) 2014: Laparoscopic cholecystectomy with ERCP 1 to 2 days later during . Was hospitalized for approximately 1 week. Performed in [place], [place]. Family History Family/Other Diabetes Maternal aunt Hypertension Maternal aunt Family history of thyroid problem Maternal aunt Mother Family history of thyroid problem Grandmother Family history of thyroid problem Paternal grandmother Maternal grandmother Denies family history of Colon cancer Ovarian cancer Heart disease Hyperlipidemia Breast cancer Uterine cancer Stroke Social History Smoking and tobacco status: former smoker Quit status (tobacco): has quit using tobacco Former quit date comment: January 2020-- 2ppd Alcohol intake: never Current gender identity: Female Additional social history: - Tobacco Use: Started smoking at age 16 and smoked 1/2 pack per day off and on since then until she quit 02/2020 when she found out she was . Miscarried in March 2020 and resumed smoking at that time. Quit June 2020 when she found out she was . 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 Reproductive History: Date of last menstrual period: 06/19/20 Physical Exam Const: COMMON NORMALS: no acute distress, patient oriented x3 and healthy appearing HENMT: COMMON NORMALS: normocephalic and atraumatic HEAD & SCALP: normocephalic and atraumatic Eye: COMMON NORMALS: Equal, round and reactive pupils present and EOMs intact bilaterally PUPIL: Yes Equal, round and reactive pupils present Neck/C-Spine: COMMON NORMALS: full ROM and supple Chest: COMMONS NORMALS: normal inspection of the chest and normal palpation of entire chest wall Resp: COMMON NORMALS: normal respiratory effort, No retractions, No use of accessory muscles and clear to auscultation bilaterally AUSCULTATION: clear to auscultation bilaterally Cardio: COMMON NORMALS: regular rate, regular rhythm and No murmurs present (Cardio) RATE: regular rate RHYTHM: regular rhythm GI: COMMON NORMALS: Normal to inspection, nondistended, normoactive bowel sounds present, Soft to palpation, non-tender and no masses PALPATION: Yes Soft to palpation Extremity: COMMON NORMALS: normal to inspection and full ROM Neuro: COMMON NORMALS: patient oriented x3, moves all extremities and no focal motor deficits Psych: COMMON NORMALS: mental status grossly normal, Normal thought process present and cooperative THOUGHT PROCESS: Normal thought process present Skin: COMMON NORMALS: no rashes or lesions noted and no wounds GENERAL SKIN EXAM: no rashes or lesions noted Course Vital Signs: Vital signs: Vital Signs Temperature 98.4 F 09/27/20 19:48 Pulse Rate 96 09/27/20 19:48 Respiratory Rate 18 09/27/20 19:48 Blood Pressure 136/84 09/27/20 19:48 Pulse Oximetry 97 09/27/20 19:48 MDM - OB/Uterine Contractions MDM Narrative: Medical decision making narrative: Patient presents here with vaginal bleeding with a threatened miscarriage. I did a bedside ultrasound that showed an IUP consistent with dates with a heart rate of 152. Patient is stable for discharge informed her she needs to return if her pain worsens or if her bleeding worsens. She understands agrees to plan she is to follow-up with her OB next week. Discharge Plan Discharge Patient Disposition: Home Clinical Impression: Threatened miscarriage Condition: Stable Prescriptions: No Action hydroxyzine HCl 25 mg tablet 25 mg PO .HS PRN (Reason: anxiety) Qty: 30 RF: 1 prazosin 1 mg capsule 1 mg PO .HS Qty: 30 RF: 1 prazosin 2 mg capsule 2 mg PO .HS Qty: 30 RF: 1 sertraline [Zoloft] 100 mg tablet 200 mg PO DAILY Qty: 60 RF: 1 trazodone 100 mg tablet 100 mg PO .HS Qty: 30 RF: 1 Reglan 10 mg tablet 10 mg PO .COMPLEX Qty: 120 RF: 5 enoxaparin [Lovenox] 40 mg/0.4 mL syringe 40 mg SUBCUT DAILY Qty: 30 RF: 9 Discharge Orders: Discharge Order (Routine); Ordered 09/27/20 Ordered By: Robb Fregoso Referrals: Vashti Hodge DO [Primary Care Provider] - Discharge Diet: Advance as tolerated Discharge Activity: Resume usual activity Patient Instructions: Threatened Miscarriage (ED) Coding Level of Care Code ED Assistant Wrestling Coach for Charu Escobar
[2020-09-27 20:36] VITALS: BP 144/90; PULSE 94; RESP 18; O2SAT 98
--- NOTE | 2020-09-27 20:47 | PC.NURSE ---
iagree with this assessment
== END 2020-09-27 20:36 | disposition home or self-care (01) ==
PROVIDERS: Emergency Provider Emergency Medicine; PCP Family Medicine
DX: O20.0 Threatened abortion (principal); Z3A.14 14 weeks gestation of pregnancy; Z87.891 Personal history of nicotine dependence
CPT/HCPCS: 12345; 99281

== ENCOUNTER → 2020-10-18 08:27 | Outpatient (BNVA) | payer MEDICAID, SELFPAY | PROVIDERS: PCP Family Medicine; Visit Provider Nurse Practitioner | DX: F43.12 Post-traumatic stress disorder, chronic (principal); F41.1 Generalized anxiety disorder | CPT/HCPCS: 99214 ==

== ENCOUNTER 2020-10-19 09:20 | Outpatient (CLI) | payer MEDICAID, SELFPAY ==
--- NOTE | 2020-10-19 09:40 | US_ITS ---
WS: [id number] Ultrasound OB limited. HISTORY: bradycardia. Single intrauterine gestation is identified. Cervix is closed measuring 4.4 cm. Fetus in cephalic pre sentation. Multiple M-mode tracings of the heart are performed. Heart rate persists around 144 throug h 147 bpm. There is no bradycardia for tachycardia. The size and position of the heart is normal in e caity second trimester fetus. Although the outflow tracts are limited there is no obvious abnormality. No anasarca or pericardial effusion. Normal amount of amniotic fluid and the placenta is posterior. US/US OB limited [id number] IMPRESSION: Normal early second trimester appearance of the heart. No bradycardia or tachycardia.
== END 2020-10-19 09:21 | disposition home or self-care (01) ==
PROVIDERS: PCP Family Medicine; Visit Provider Obstetrics & Gynecology
DX: O36.8320 Maternal care for abnormalities of the fetal heart rate or rhythm, second trimester, not applicable or unspecified (principal)
CPT/HCPCS: 76815; 84315

== ENCOUNTER → 2020-11-05 08:46 | Outpatient (BNVA) | payer MEDICAID, SELFPAY | PROVIDERS: PCP Family Medicine; Visit Provider Counselor Professional | DX: F43.12 Post-traumatic stress disorder, chronic (principal) | CPT/HCPCS: 90834 ==

== ENCOUNTER → 2020-11-09 13:11 | Outpatient (BNVA) | payer MEDICAID, SELFPAY | PROVIDERS: PCP Family Medicine; Visit Provider Obstetrics & Gynecology | DX: Z34.02 Encounter for supervision of normal first pregnancy, second trimester (principal); Z3A.20 20 weeks gestation of pregnancy | CPT/HCPCS: 76805 ==

== ENCOUNTER 2020-12-22 02:33 | Outpatient (CLI) | payer MEDICAID, SELFPAY ==
[2020-12-22 02:33] VITALS: BMI 53.7
[2020-12-22 03:15] VITALS: BP 134/81; PULSE 94; TEMP 36.2
[2020-12-22 03:34] VITALS: RESP 18
[2020-12-22 03:45] VITALS: BP 134/81; PULSE 85; RESP 18; TEMP 36.2
== END 2020-12-22 03:58 | disposition home or self-care (01) ==
LOC: OPOB 02:42 → OBGYN 02:43
PROVIDERS: PCP Family Medicine; Visit Provider Obstetrics & Gynecology
DX: O46.90 Antepartum hemorrhage, unspecified, unspecified trimester (principal); Z3A.00 Weeks of gestation of pregnancy not specified
CPT/HCPCS: 96360; 96372; 96374; 99211

== ENCOUNTER → 2021-01-04 10:05 | Outpatient (BNVA) | payer MEDICAID, SELFPAY | PROVIDERS: PCP Family Medicine; Visit Provider Obstetrics & Gynecology | DX: O09.892 Supervision of other high risk pregnancies, second trimester (principal); Z34.80 Encounter for supervision of other normal pregnancy, unspecified trimester | CPT/HCPCS: 82950; 84315; 85027 ==

== ENCOUNTER → 2021-01-28 08:36 | Outpatient (BNVA) | payer MEDICAID, SELFPAY | PROVIDERS: PCP Family Medicine; Visit Provider Nurse Practitioner | DX: F43.12 Post-traumatic stress disorder, chronic (principal) | CPT/HCPCS: 99214 ==

== ENCOUNTER → 2021-01-31 09:17 | Outpatient (BNVA) | payer MEDICAID, SELFPAY | PROVIDERS: PCP Family Medicine; Visit Provider Counselor Professional | DX: F43.12 Post-traumatic stress disorder, chronic (principal) | CPT/HCPCS: 90834 ==

== ENCOUNTER → 2021-02-07 08:01 | Outpatient (BNVA) | payer MEDICAID, SELFPAY | PROVIDERS: PCP Family Medicine; Visit Provider Counselor Professional | DX: F43.12 Post-traumatic stress disorder, chronic (principal) | CPT/HCPCS: 90832 ==

== ENCOUNTER 2021-02-17 14:00 | Outpatient (CLI) | payer MEDICAID, SELFPAY ==
[2021-02-17] VITALS (10 sets, daily range): BP systolic 121–177; BP diastolic 67–114; PULSE 70–107; RESP 18; TEMP 35.8; BMI 54.3
[2021-02-17] MEDS: sodium chloride 0.9% 1,000 ML 999 ML IV (14:53)
[2021-02-17 14:55] LABS: Add Urine Microscopic? NO; Charge for UA Resulting for Rev
[2021-02-17 14:58] LABS: Bilirubin Urine 1+ (Negative); Blood Urine Neg (Negative); Glucose Urine UA Norm (Normal); Ketones Urine 1+ (Negative); Leukocyte Esterase Urine Negative (Negative); Nitrate Urine Negative (Negative); Protein Urine Neg (Negative); Urine Appearance Clear (CLEAR); Urine Color Yellow (Yellow); Urobilinogen Urine 1 mg/dL (Negative); pH Urine 6 (5-7)
[2021-02-17] MEDS: sodium chloride 0.9% 500 ML 999 ML IV ×2 (16:20)
[2021-02-17 18:19] LABS: Nitrazine Paper, PH Negative
== END 2021-02-17 17:58 | disposition home or self-care (01) ==
LOC: OPOB 14:07 → OBGYN 14:08
PROVIDERS: PCP Family Medicine; Visit Provider Obstetrics & Gynecology
DX: O26.899 Other specified pregnancy related conditions, unspecified trimester (principal); Z3A.00 Weeks of gestation of pregnancy not specified; R10.9 Unspecified abdominal pain
CPT/HCPCS: 59025; 81003; 83986; 96360; 96361; 99211; J7030; J7040

== ENCOUNTER → 2021-02-25 07:27 | Outpatient (BNVA) | payer MEDICAID, SELFPAY | PROVIDERS: PCP Family Medicine; Visit Provider Nurse Practitioner | DX: F43.12 Post-traumatic stress disorder, chronic (principal) | CPT/HCPCS: 99214 ==

== ENCOUNTER 2021-03-12 18:26 | Emergency (ER) | payer MEDICAID, SELFPAY ==
[2021-03-12 19:00] VITALS: BP 145/80; PULSE 77; RESP 18; TEMP 36.7; O2SAT 98; BMI 52.6
[2021-03-12 19:23] VITALS: BP 133/81; PULSE 70; RESP 17; O2SAT 99
[2021-03-12 19:35] VITALS: BP 122/95; PULSE 72; RESP 19; O2SAT 98
[2021-03-12] MEDS: naproxen 500 mg Tablet PO (19:36)
[2021-03-12 19:38] VITALS: PULSE 65
--- NOTE | 2021-03-12 19:45 | USR_ITS ---
PROCEDURE INFORMATION: Exam: US Duplex Left Upper Extremity Veins, Limited Exam date and time: 03/12/2021 7:45 PM Age: 26 years old Clinical indication: Pain; Swelling (edema) of limb; Upper extremity, left; Arm, upper and arm, lower TECHNIQUE: Imaging protocol: Real-time Duplex ultrasound of the Left Upper Extremity with 2-D ball scale, color Doppler flow and spectral waveform analysis with image documentation. Limited exam focused on the left upper extremity veins. Total images: [id number] COMPARISON: No relevant prior studies available. FINDINGS: Left deep veins: Unremarkable. Axillary and brachial veins are patent throughout without thrombus. Normal Doppler waveforms. Normal compressibility and/or augmentation response. Visualized internal jugular and subclavian veins are patent. Left superficial veins: Subacute to chronic appearing occlusive thrombus left cephalic vein extending to the level of the wrist. Soft tissues: Unremarkable. US/[place] [id number] IMPRESSION: Subacute to chronic appearing occlusive thrombus left cephalic vein extending to the level of the wrist.
--- NOTE | 2021-03-12 19:52 | ED_ITS ---
HPI - Extremity Problem General: Chief complaint: Extremity Problem,Nontraumatic Stated complaint: left arm injury Time Seen by Provider: 03/12/21 19:13 Source: patient Mode of arrival: ambulatory Limitations: no limitations History of Present Illness: HPI Narrative: 18-year-old female states she gave roughly 2 weeks ago. States she had an IV in her left arm and states she had swelling and pain in that arm since then. She was sent here from urgent care as they are concerned she may have had a DVT in that arm. States pain is currently a 5 out of 10. Denies any fevers or redness. Associated symptoms: Deny chest pain, fever(s) or rash Review of Systems Const: Denies: fever(s), chills, body aches or change in appetite Eyes: Denies: blurry vision or eye discomfort ENMT: Denies: throat pain or dental pain Card: Denies: chest pain Resp: Denies: dyspnea GI: Denies: abdominal pain, nausea, vomiting or diarrhea : Denies: dysuria Musc: Reports: extremity pain Skin/Breast: Denies: rash Neuro: Denies: headache(s) Psych: Denies: depression Gabriel/Lymph: Denies: easy bruising All/Imm: Denies: urticaria PFSH ED PFSH: Medical History Anxiety and depression Reports PTSD, anxiety, and depression. Sees psychiatrist, Dr. Beltran. Treated with prazosin, Zoloft, and trazodone. History of deep venous thrombosis or pulmonary embolus (~2013) Developed PE in 2013 after being hospitalized for approximately 1 week after having laparoscopic cholecystectomy with ERCP while . Hospitalized in [place]. Was on anticoagulants rest of and for a few months afterwards. No further PE or DVT Post-traumatic stress disorder, chronic Surgical History Hx laparoscopic cholecystectomy (~2013) 2013: Laparoscopic cholecystectomy with ERCP 1 to 2 days later during . Was hospitalized for approximately 1 week. Performed in [place], [place]. Family History Family/Other Diabetes Maternal aunt Hypertension Maternal aunt Family history of thyroid problem Maternal aunt Mother Family history of thyroid problem Grandmother Family history of thyroid problem Paternal grandmother Maternal grandmother Denies family history of Colon cancer Ovarian cancer Heart disease Hyperlipidemia Breast cancer Uterine cancer Stroke Social History Smoking and tobacco status: former smoker Quit status (tobacco): has quit using tobacco Year quit tobacco: 06/2020 Former quit date comment: Smoked 1/2 ppd. Started age 16. Has intermittently quit. Alcohol intake: former Year of sobriety/quit date alcohol: 2016 Former alcohol use details: Usually would drink 1 beer per day. Additional social history: - Tobacco Use: Started smoking at age 16 and smoked 1/2 pack per day off and on since then until she quit 02/2020 when she found out she was . Miscarried in March 2020 and resumed smoking at that time. Quit June 2020 when she found out she was . 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 Reproductive History: Date of last menstrual period: 06/19/20 Physical Exam Const: COMMON NORMALS: no acute distress, patient oriented x3 and healthy appearing HENMT: COMMON NORMALS: normocephalic and atraumatic HEAD & SCALP: normocephalic and atraumatic Eye: COMMON NORMALS: Equal, round and reactive pupils present and EOMs intact bilaterally PUPIL: Yes Equal, round and reactive pupils present Neck/C-Spine: COMMON NORMALS: full ROM and supple Chest: COMMONS NORMALS: normal inspection of the chest and normal palpation of entire chest wall Resp: COMMON NORMALS: normal respiratory effort, No retractions, No use of accessory muscles and clear to auscultation bilaterally AUSCULTATION: clear to auscultation bilaterally Cardio: COMMON NORMALS: regular rate, regular rhythm and No murmurs present (Cardio) RATE: regular rate RHYTHM: regular rhythm GI: COMMON NORMALS: Normal to inspection, nondistended, normoactive bowel sounds present, Soft to palpation, non-tender and no masses PALPATION: Yes Soft to palpation Extremity: COMMON NORMALS: full ROM NARRATIVE EXTREMITY EXAM: Some slight swelling to the left wrist and forearm with tenderness. No warmth to touch no redness. Distal pulses intact. Neuro: COMMON NORMALS: patient oriented x3, moves all extremities and no focal motor deficits Psych: COMMON NORMALS: mental status grossly normal, Normal thought process present and cooperative THOUGHT PROCESS: Normal thought process present Skin: COMMON NORMALS: no rashes or lesions noted and no wounds GENERAL SKIN EXAM: no rashes or lesions noted Course Vital Signs: Vital signs: Vital Signs Temperature 98.1 F 03/12/21 19:00 Pulse Rate 65 03/12/21 19:38 Respiratory Rate 19 H 03/12/21 19:35 Blood Pressure 122/95 03/12/21 19:35 Pulse Oximetry 98 03/12/21 19:35 MDM - Extremity (Nontraumatic) MDM Narrative: Medical decision making narrative: Patient presents with a DVT to her left arm causing her swelling and pain. Ultrasound confirmed DVT. She has no chest pain or shortness of breath. We will start her on Eliquis and she is to follow-up with her PCP in 1 week. She is return if worsening. Discharge Plan Discharge Patient Disposition: Home Clinical Impression: Deep venous thrombosis of upper extremity Qualifiers: Affected thrombotic vein of extremity: unspecified vein of extremity Chronicity: acute Laterality: left Qualified Code(s): I82.622 - Acute embolism and thrombosis of deep veins of left upper extremity Condition: Stable Prescriptions: New Eliquis 5 mg tablet 10 mg PO BID 7 Days Qty: 28 RF: 0 Eliquis 5 mg tablet 5 mg PO BID 30 Days Qty: 60 RF: 0 No Action hydroxyzine HCl 25 mg tablet 25 mg PO .HS PRN (Reason: anxiety) Qty: 30 RF: 1 Reglan 10 mg tablet 10 mg PO .COMPLEX Qty: 120 RF: 5 cyproheptadine 4 mg tablet 4 mg PO .HS Qty: 30 RF: 0 sertraline [Zoloft] 100 mg tablet 200 mg PO DAILY Qty: 60 RF: 0 prenat.vits,anthony,[id number] Tablet 1 tab PO DAILY RF: 0 Discharge Orders: Discharge ED (Routine); Ordered 03/12/21 Ordered By: Robb Fregoso Referrals: Vashti Hodge DO [Primary Care Provider] - 1-3 days Discharge Diet: Advance as tolerated Discharge Activity: Resume usual activity Patient Instructions: Deep Venous Thrombosis (ED) Coding Level of Care Code ED Supervisor [employer] for Chg Fwd Exam Comprehensive
[2021-03-12 20:44] VITALS: BP 131/77; PULSE 99; RESP 18; TEMP 36.9; O2SAT 99
== END 2021-03-12 20:46 | disposition home or self-care (01) ==
PROVIDERS: Emergency Provider Emergency Medicine; PCP Family Medicine
DX: I82.622 Acute embolism and thrombosis of deep veins of left upper extremity (principal); Z87.891 Personal history of nicotine dependence
CPT/HCPCS: 93971; 99283

== ENCOUNTER → 2021-03-28 09:22 | Outpatient (BNVA) | payer MEDICAID, SELFPAY | PROVIDERS: PCP Family Medicine; Visit Provider Nurse Practitioner | DX: F43.12 Post-traumatic stress disorder, chronic (principal) | CPT/HCPCS: 99214 ==

== ENCOUNTER → 2021-04-09 08:20 | Outpatient (BNVA) | payer MEDICAID, SELFPAY | PROVIDERS: PCP Family Medicine; Visit Provider Counselor Professional | DX: F43.12 Post-traumatic stress disorder, chronic (principal) | CPT/HCPCS: 90834 ==

== ENCOUNTER → 2021-04-23 07:30 | Outpatient (BNVA) | payer MEDICAID, SELFPAY | PROVIDERS: PCP Family Medicine; Visit Provider Nurse Practitioner | DX: F43.12 Post-traumatic stress disorder, chronic (principal) | CPT/HCPCS: 99214 ==

== ENCOUNTER → 2021-06-04 14:10 | Outpatient (BNVA) | payer MEDICAID, SELFPAY | PROVIDERS: PCP Family Medicine; Visit Provider Counselor Professional | DX: F43.12 Post-traumatic stress disorder, chronic (principal) | CPT/HCPCS: 90834 ==

== ENCOUNTER → 2021-06-18 07:32 | Outpatient (BNVA) | payer MEDICAID, SELFPAY | PROVIDERS: PCP Family Medicine; Visit Provider Nurse Practitioner | DX: F43.12 Post-traumatic stress disorder, chronic (principal) | CPT/HCPCS: 99214 ==

== ENCOUNTER 2021-06-29 03:12 | Emergency (ER) | payer MEDICAID, SELFPAY ==
[2021-06-29 03:12] VITALS: BP 148/111; PULSE 102; RESP 20; TEMP 36.9; O2SAT 98; BMI 40.3
--- NOTE | 2021-06-29 04:20 | W.ED.DENTAL ---
HPI - Dental/Oral General: Chief complaint: Dental/Oral Stated complaint: R SIDE TOOTH PAIN, GOING UP TO EAR Time Seen by Provider: 06/29/21 03:58 History of Present Illness: MD Complaint: tooth pain Teeth map: 1. Onset (ago): day(s) Duration: worsening Severity: severe Relieving factors: NSAIDs Exacerbating factors: chewing Context: other Associated symptoms: Reports ear or mastoid pain, gum swelling and odynophagia; Denies fever(s), sore throat or tongue swelling Review of Systems Const: Denies: fever(s) ENMT: Reports: odynophagia and ear or mastoid pain Card: Denies: chest pain Resp: Denies: dyspnea GI: Denies: vomiting All/Imm: Denies: tongue swelling PFSH ED PFSH: Medical History (Updated 06/29/21 @ 04:33 by Xavi Gabriel DO) Anxiety and depression Reports PTSD, anxiety, and depression. Sees psychiatrist, Dr. Beltran. Treated with prazosin, Zoloft, and trazodone. History of deep venous thrombosis or pulmonary embolus (~2013) Developed PE in 2013 after being hospitalized for approximately 1 week after having laparoscopic cholecystectomy with ERCP while . Hospitalized in [place]. Was on anticoagulants rest of and for a few months afterwards. No further PE or DVT Post-traumatic stress disorder, chronic Surgical History (Updated 04/10/21 @ 15:13 by Vashti House APN, KEI) Hx laparoscopic cholecystectomy (~2013) 2014: Laparoscopic cholecystectomy with ERCP 1 to 2 days later during . Was hospitalized for approximately 1 week. Performed in [place], [place]. Hx of section (~02/20/21) Family History Family/Other Diabetes Maternal aunt Hypertension Maternal aunt Family history of thyroid problem Maternal aunt Mother Family history of thyroid problem Grandmother Family history of thyroid problem Paternal grandmother Maternal grandmother Denies family history of Colon cancer Ovarian cancer Heart disease Hyperlipidemia Breast cancer Uterine cancer Stroke Social History Smoking and tobacco status: former smoker Quit status (tobacco): has quit using tobacco Year quit tobacco: 06/2020 Former quit date comment: Smoked 1/2 ppd. Started age 16. Has intermittently quit. Alcohol intake: former Year of sobriety/quit date alcohol: 2016 Former alcohol use details: Usually would drink 1 beer per day. Additional social history: - Tobacco Use: Started smoking at age 16 and smoked 1/2 pack per day off and on since then until she quit 02/2020 when she found out she was . Miscarried in March 2020 and resumed smoking at that time. Quit June 2020 when she found out she was . 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 Reproductive History: Date of last menstrual period: 06/19/20 Physical Exam Const: GENERAL APPEARANCE: in distress (in pain); not ill appearing ORIENTATION/CONSCIOUSNESS: Yes awake, Yes oriented to person, Yes oriented to place and Yes oriented to time HENMT: COMMON NORMALS: normocephalic, external ears normal and Normal external nose present HEAD & SCALP: normocephalic FACE & SINUS: normal facial exam NOSE: Normal external nose present and Normal nares present EXTERNAL EAR: Yes external ears normal TYMPANIC MEMBRANE: TM normal on the right TEETH & GINGIVA: Yes abnormal tooth and associated gingiva OTHER: Gingival abscess upper right posterior. Neuro: SENSORIUM/ORIENTATION: Yes oriented to person, Yes oriented to place and Yes oriented to time Discharge Plan Discharge Patient Disposition: Home Clinical Impression: Gingival abscess Condition: Stable Prescriptions: New hydrocodone-acetaminophen 5-325 mg tablet 1 tab PO Q8H PRN (Reason: pain) Qty: 7 RF: 0 penicillin V potassium 500 mg tablet 500 mg PO QID 14 Days Qty: 56 RF: 0 No Action Reglan 10 mg tablet 10 mg PO .COMPLEX Qty: 120 RF: 5 norethindrone (contraceptive) 0.35 mg tablet 0.35 mg PO DAILY Qty: 84 RF: 3 sertraline [Zoloft] 100 mg tablet 200 mg PO DAILY Qty: 60 RF: 1 hydroxyzine HCl 25 mg tablet 25 mg PO BID PRN (Reason: anxiety) Qty: 60 RF: 1 cyproheptadine 4 mg tablet 8 mg PO .HS Qty: 60 RF: 1 prenat.vits,anthony,[id number] Tablet 1 tab PO DAILY RF: 0 Discharge Orders: Discharge ED (Routine); Ordered 06/29/21 Ordered By: Xavi Gabriel Referrals: Vashti Hodge DO [Primary Care Provider] - Patient Instructions: Dental Abscess (ED), Opioid Safety Activity Restrictions/Additional Instructions: Return for fever, vomiting liquids or medications. Follow-up with the dentist next week to check your symptoms. Coding Level of Care Code ED Founder And Chief Executive Officer for Chg Fwd Exam Expanded Problem Focused
[2021-06-29] MEDS: penicillin v potassium 250 mg Tablet 500 MG PO (04:41)
[2021-06-29] MEDS: dexamethasone 4 mg Tablet 10 MG PO (04:42)
[2021-06-29] MEDS: oxyCODONE-APAP 5-325 mg Tablet 2 TAB PO (04:42)
[2021-06-29 04:45] VITALS: BP 141/80; PULSE 82; RESP 22; O2SAT 99
== END 2021-06-29 04:45 | disposition home or self-care (01) ==
PROVIDERS: Emergency Provider Emergency Medicine; PCP Family Medicine
DX: K05.319 Chronic periodontitis, localized, unspecified severity (principal); Z87.891 Personal history of nicotine dependence
CPT/HCPCS: 99283; J8540

== ENCOUNTER → 2021-08-08 12:18 | Outpatient (BNVA) | payer MEDICAID, SELFPAY | PROVIDERS: PCP Family Medicine; Visit Provider Nurse Practitioner | DX: F43.12 Post-traumatic stress disorder, chronic (principal) | CPT/HCPCS: 99214 ==

== ENCOUNTER → 2021-09-03 07:40 | Outpatient (BNVA) | payer MEDICAID, SELFPAY | PROVIDERS: PCP Family Medicine; Visit Provider Counselor Professional | DX: F43.12 Post-traumatic stress disorder, chronic (principal); F41.9 Anxiety disorder, unspecified; F32.9 Major depressive disorder, single episode, unspecified | CPT/HCPCS: 90834 ==

== ENCOUNTER → 2021-09-09 08:22 | Outpatient (BNVA) | payer MEDICAID, SELFPAY | PROVIDERS: PCP Family Medicine; Visit Provider Counselor Professional | DX: F43.12 Post-traumatic stress disorder, chronic (principal); F41.9 Anxiety disorder, unspecified; F32.9 Major depressive disorder, single episode, unspecified | CPT/HCPCS: 90834 ==

== ENCOUNTER 2021-09-17 23:57 | Emergency (ER) | payer MEDICAID, SELFPAY ==
[2021-09-18 00:01] VITALS: BP 138/99; PULSE 100; RESP 18; TEMP 36.4; O2SAT 99; BMI 48.7
--- NOTE | 2021-09-18 00:03 | W.ED.DENTAL ---
HPI - Dental/Oral General: Chief complaint: Dental/Oral Stated complaint: tooth pain Time Seen by Provider: 09/18/21 00:02 History of Present Illness: HPI Narrative: Patient is a 26-year-old female comes to the ED with dental pain. She is currently 6 weeks . Patient says she has been dealing with this dental pain for the past month. Dental pain located back bottom left molar. she had an appointment set up with a dentist in [place] several weeks ago but that fell through. The past couple days the dental pain got worse. She has called around and found a dentist locally here that she can see in the next couple weeks. Associated symptoms: Denies fever(s) or odynophagia Review of Systems Const: Denies: fever(s), chills or fatigue Eyes: Denies: change in vision or eye discomfort ENMT: Reports: dental pain (back bottom left molar); Denies: throat pain, odynophagia, nasal discharge or nasal congestion Card: Denies: chest pain, palpitations, edema, swelling of feet/ankles, dyspnea on exertion or orthopnea Resp: Denies: dyspnea, productive cough or non-productive cough GI: Denies: abdominal pain, nausea, vomiting, diarrhea, constipation or hematochezia : Denies: flank pain, dysuria or hematuria Musc: Denies: neck pain, back pain or extremity swelling Skin/Breast: Denies: rash or new lesions Neuro: Denies: headache(s), numbness in extremities or weakness in extremities PFSH ED PFSH: Medical History Anxiety and depression Reports PTSD, anxiety, and depression. Sees psychiatrist, Dr. Beltran. Treated with prazosin, Zoloft, and trazodone. History of deep venous thrombosis or pulmonary embolus (~2013) Developed PE in 2013 after being hospitalized for approximately 1 week after having laparoscopic cholecystectomy with ERCP while . Hospitalized in [place]. Was on anticoagulants rest of and for a few months afterwards. No further PE or DVT Post-traumatic stress disorder, chronic Psychiatric care Surgical History Hx laparoscopic cholecystectomy (~2013) 2013: Laparoscopic cholecystectomy with ERCP 1 to 2 days later during . Was hospitalized for approximately 1 week. Performed in [place], [place]. Hx of section (~02/20/21) Family History Family/Other Diabetes Maternal aunt Hypertension Maternal aunt Family history of thyroid problem Maternal aunt Mother Family history of thyroid problem Grandmother Family history of thyroid problem Paternal grandmother Maternal grandmother Denies family history of Colon cancer Ovarian cancer Heart disease Hyperlipidemia Breast cancer Uterine cancer Stroke Social History Additional social history: - Tobacco Use: Started smoking at age 16 and smoked 1/2 pack per day off and on since then until she quit 02/2020 when she found out she was . Miscarried in March 2020 and resumed smoking at that time. Quit June 2020 when she found out she was . 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 Const: COMMON NORMALS: no acute distress, patient oriented x3 and alert GENERAL APPEARANCE: cooperative and comfortable HENMT: COMMON NORMALS: normocephalic HEAD & SCALP: normocephalic MOUTH: Normal oral and palatal mucosa present TEETH & GINGIVA: Yes abnormal tooth and associated gingiva lower left third molar tender, with associated gingival edema and other (Dental caries), Yes caries and Yes poor dentition THROAT: posterior oropharynx normal and uvula midline Neck/C-Spine: COMMON NORMALS: supple GENERAL: Yes normal visual inspection Resp: COMMON NORMALS: normal respiratory effort, No retractions, No use of accessory muscles and clear to auscultation bilaterally AUSCULTATION: clear to auscultation bilaterally Cardio: COMMON NORMALS: regular rate, regular rhythm, S1 normal heart sound present, S2 normal heart sound present, No gallops present (Cardio), No clicks present (Cardio), No murmurs present (Cardio) and Peripheral pulses 2+ throughout RATE: regular rate RHYTHM: regular rhythm HEART SOUNDS: S1 normal heart sound present and S2 normal heart sound present PERIPHERAL PULSES: Peripheral pulses 2+ throughout GI: COMMON NORMALS: Normal to inspection, nondistended, normoactive bowel sounds present, Soft to palpation, non-tender and no masses PALPATION: Yes Soft to palpation : COMMON NORMALS: Yes no CVA tenderness BLADDER/KIDNEY EXAM: Yes no CVA tenderness Back/Pelvis: COMMON NORMALS: no CVA tenderness Extremity: COMMON NORMALS: normal to inspection Neuro: COMMON NORMALS: patient oriented x3 and moves all extremities SENSORIUM/ORIENTATION: Yes alert Skin: GENERAL SKIN EXAM: dry skin Course Vital Signs: Vital signs: Vital Signs Temperature 97.5 F L 09/18/21 00:01 Pulse Rate 100 09/18/21 00:01 Respiratory Rate 18 09/18/21 00:23 Blood Pressure 138/99 09/18/21 00:01 Pulse Oximetry 99 09/18/21 00:01 MDM - Dental/Oral MDM Narrative: Medical decision making narrative: Patient is a 26-year-old female comes to the ED with dental pain. She is currently 6 weeks . She has a extensive dental caries with some gingival edema noted in the left bottom lower molar. No signs of angioedema present. Patient has a dentist locally here that she can use. Patient was given a dose of Tylenol and clindamycin while here in the ED. She was discharged home with a prescription for clindamycin and told to follow-up with dentist as soon as possible to have dental pain further evaluated. Discharge Plan Discharge Patient Disposition: Home Clinical Impression: Dental infection Condition: Stable Prescriptions: New clindamycin HCl 150 mg capsule 300 mg PO QID 7 Days Qty: 56 RF: 0 No Action Reglan 10 mg tablet 10 mg PO .COMPLEX Qty: 120 RF: 5 sertraline [Zoloft] 100 mg tablet 200 mg PO DAILY Qty: 60 RF: 1 hydroxyzine HCl 25 mg tablet 25 mg PO BID PRN (Reason: anxiety) Qty: 60 RF: 1 cyproheptadine 4 mg tablet 8 mg PO .HS Qty: 60 RF: 1 prenat.vits,anthony,[id number] Tablet 1 tab PO DAILY RF: 0 norethindrone (contraceptive) 0.35 mg tablet 0.35 mg PO DAILY Qty: 84 RF: 3 amoxicillin-pot clavulanate [Augmentin] 875-125 mg tablet 1 tab PO BID 10 Days Qty: 20 RF: 0 hydrocodone-acetaminophen 5-325 mg tablet 1 tab PO Q8H PRN (Reason: pain) Qty: 7 RF: 0 Discharge Orders: Discharge ED (Routine); Ordered 09/18/21 Ordered By: Emile Simpson Referrals: Vashti Hodge DO [Primary Care Provider] - Discharge Diet: Regular Discharge Activity: Resume usual activity Patient Instructions: Dental Caries (Cavities), Toothache (ED) Activity Restrictions/Additional Instructions: Follow-up with dentist within the next 2 weeks to have dental pain evaluated. Take medications as prescribed. You can take [id number] Tylenol per bottle instructions for pain. Return to the ER or your medical provider if condition worsens. Please read and understand discharge instructions. Thank you for choosing [facility] for your healthcare needs today. Please realize this is an emergency room and that we are providing you with a medical screening exam and this may not be complete and all inclusive of all the testing and or work up that you may need to determine your ailment or severity of your illness. It is very important that you follow up as instructed or that you return to the Emergency Department should you have concerns or if your condition changes or worsens in any way. Coding Level of Care Code ED Chemist [employer] for [employer] Fwd Exam Comprehensive
[2021-09-18] MEDS: clindamycin 150 mg Capsule 300 MG PO (00:20)
[2021-09-18] MEDS: acetaminophen 500 mg Tablet 1000 MG PO (00:20)
[2021-09-18 00:23] VITALS: RESP 18
== END 2021-09-18 00:24 | disposition home or self-care (01) ==
PROVIDERS: Emergency Provider Physician Assistant; PCP Family Medicine
DX: O26.891 Other specified pregnancy related conditions, first trimester (principal); K04.7 Periapical abscess without sinus; Z3A.01 Less than 8 weeks gestation of pregnancy; Z87.891 Personal history of nicotine dependence
CPT/HCPCS: 99283

== ENCOUNTER → 2021-10-02 14:09 | Outpatient (BNVA) | payer MEDICAID, SELFPAY | PROVIDERS: PCP Family Medicine; Visit Provider Nurse Practitioner Women's Health | DX: O20.9 Hemorrhage in early pregnancy, unspecified (principal); Z3A.00 Weeks of gestation of pregnancy not specified; N92.6 Irregular menstruation, unspecified | CPT/HCPCS: 84315; 84702; 85027; 87491; 87591; 87661 ==

== ENCOUNTER → 2021-10-08 12:24 | Outpatient (BNVA) | payer MEDICAID, SELFPAY | PROVIDERS: PCP Family Medicine; Visit Provider Obstetrics & Gynecology | DX: O09.899 Supervision of other high risk pregnancies, unspecified trimester (principal); Z3A.00 Weeks of gestation of pregnancy not specified | CPT/HCPCS: 80307; 82950; 84315; 85027; 86592; 86762; 86803; 86850; 86900; 87086; 87340; 87806 ==

== ENCOUNTER → 2021-10-14 07:47 | Outpatient (BNVA) | payer MEDICAID, SELFPAY | PROVIDERS: PCP Family Medicine; Visit Provider Nurse Practitioner | DX: F43.12 Post-traumatic stress disorder, chronic (principal) | CPT/HCPCS: 99214 ==

== ENCOUNTER 2021-10-24 16:03 | Emergency (ER) | payer MEDICAID, SELFPAY ==
[2021-10-24 16:11] VITALS: BP 136/92; PULSE 104; RESP 16; TEMP 37.2; O2SAT 98
--- NOTE | 2021-10-24 16:34 | W.ED.PREGNAN ---
HPI - General: Chief complaint: Vaginal Bleeding Stated complaint: 11 WKS PREG/HORRIBLE CRAMPS/DIZZY Time Seen by Provider: 10/24/21 16:33 History of Present Illness: HPI Narrative: Ms. Gomez is a 26 year old patient with an LMP of 08/07/21 who presents the emergency department due to abdominal cramping and vaginal bleeding. 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 She has a history of pulmonary embolism and also left upper extremity DVT associated with . She is currently on Lovenox however notes that she has been out of her Lovenox for 2 days as the pharmacy has not been able to get her medications. She reports that over the past 3 days she had nontraumatic onset of abdominal discomfort bilaterally in the lower abdomen. She describes it as sharp cramping which has been worsening. There does not appear to be significant temporal component or any obvious provoking factors. She has had small amounts of bright red spotting however this has become slightly heavier today. In addition today she had an episode of lightheadedness and visual disturbance and left upper extremity sensory change. She was driving at the time and had to socket puller. She denies associated headache or other neurologic symptoms. She currently has improvement in feeling with exception of subjective is abnormal feeling in the left hand and forearm. No infectious symptoms. No current chest pain or shortness of breath. Baseline nausea and vomiting for . No other specific changes to health, exacerbating, relieving factors identified. Date of Last Menstrual Period: 06/19/20 Review of Systems General: Reports: 10 or more systems reviewed and unremarkable except in HPI and below PFSH ED PFSH: Medical History Anxiety and depression Reports PTSD, anxiety, and depression. Sees psychiatrist, Dr. Beltran. Treated with prazosin, Zoloft, and trazodone. History of deep venous thrombosis or pulmonary embolus (~2013) Developed PE in 2013 after being hospitalized for approximately 1 week after having laparoscopic cholecystectomy with ERCP while . Hospitalized in [place]. Was on anticoagulants rest of and for a few months afterwards. She also ended up with blood clots in her arms after her 01/2021 delivery, and was started on eliquis. Post-traumatic stress disorder, chronic Psychiatric care Surgical History Hx laparoscopic cholecystectomy (~2013) 2014: Laparoscopic cholecystectomy with ERCP 1 to 2 days later during . Was hospitalized for approximately 1 week. Performed in [place], [place]. Hx of section (~02/20/21) Family History Family/Other Diabetes Maternal aunt Hypertension Maternal aunt Family history of thyroid problem Maternal aunt Mother Family history of thyroid problem Grandmother Family history of thyroid problem Paternal grandmother Maternal grandmother Denies family history of Colon cancer Ovarian cancer Heart disease Hyperlipidemia Breast cancer Uterine cancer Stroke Female Reproductive History: Date of last menstrual period: 06/19/20 Physical Exam Narrative: EXAM NARRATIVE: GENERAL/CONSTITUTIONAL - well-appearing. Mildly anxious Eyes - PERRL, no conjunctival injection ENMT - Atraumatic external nose and ears. Moist mucous membranes NECK - supple. trachea midline CARDIOVASCULAR - regular rate and rhythm. Normal peripheral perfusion RESPIRATORY -clear to auscultation bilaterally. ABDOMEN/GI - lower abdominal tenderness. no peritonitis PELVIC- exam performed with sales support rep present. External genitalia normal without lesions or abnormalities. No blood noted in vagina, cervix appears visually closed, physiologic appearing discharge present. Bimanual exam without focal tenderness. MSK - Extremities without obvious deformity or tenderness to palpation SKIN - Warm, Dry NEURO - alert and appropriately oriented. Cranial nerves II through XII intact. No focal neurologic deficits appreciated on clinical exam, subjective sensory changes noted in the left hand to mid elbow not following dermatomal distribution.. Moves all extremities equally. Course ED course: - Patient was seen and evaluated by me at bedside - Patient placed on cardiac monitors, IV access obtained - Initial evaluation notable for exam as above -IV fluids ordered. Patient has A+ blood type and no indication for RhoGam - Labs notable for negative hematologic panel. Metabolic panel with likely evidence of mild dehydration. - I attempted to perform [id number] ultrasound for assessment of heart rate however only hyperdense material was noted in the suspected uterus. Given beta hCG I would expect for identifiable gestational sac, therefore formal radiology performed ultrasound ordered. imaging notable for single live intrauterine gestation with no acute evidence of abnormality. Her ditch repairer report the patient had retroverted and retroflexed uterus which likely explains difficulty visualizing on transabdominal - Upon serial reexamination after treatment the patient was mildly improved with fluids - Based on patient history, evaluation, labs, and imaging as interpreted the most likely cause of the patient's condition is threatened miscarriage with mild evidence of dehydration - The results of ED evaluation were discussed with the patient including prescriptions and/or symptomatic cares (if applicable) including appropriate and responsible use, followup plan, and return precautions. The patient verbalized understanding and felt safe for discharge. - Patient discharged in satisfactory condition. Vital Signs: Vital signs: Vital Signs Temperature 98.9 F 10/24/21 17:05 Pulse Rate 88 10/24/21 19:55 Respiratory Rate 16 10/24/21 19:55 Blood Pressure 136/92 10/24/21 17:05 Pulse Oximetry 98 10/24/21 19:55 MDM - OB/Uterine Contractions Medical Records: Attestation: I reviewed the patient's medical records. Lab Data: Attestation: I reviewed the patient's lab results. Labs: Lab Results 10/24/21 10/24/21 10/24/21 17:03 17:03 17:03 WBC 8.4 10^3/uL 10^3/ uL (4.0-10.0) RBC 4.38 10^6/uL 10^6 /uL (4.1-5.3) Hgb 13.0 g/dL g/dL (11.5-15.3) Hct 37.8 % % (37.0-47.0) MCV 86.3 fl fl (81-99) MCH 29.7 pg pg (28.0-34.0) MCHC 34.4 g/dL g/dL (30.0-36.0) RDW 13.9 % % (12.1-15.1) Plt Count 293 10^3/cmm 10^3 /cmm (130-400) MPV 9.2 fL fL (7.4-10.4) Neut % (Auto) 71.5 % % Lymph % (Auto) 18.3 % % [place] % (Auto) 7.2 % % Eos % (Auto) 2.4 % % Baso % (Auto) 0.4 % % Neut # (Auto) 6.03 10^3/uL 10^3 /uL (1.8-7.7) Lymph # (Auto) 1.5 10^3/uL 10^3/ uL (0.8-4.8) [place] # (Auto) 0.6 10^3/uL 10^3/ uL (0.2-0.9) Eos # (Auto) 0.2 10^3/uL 10^3/ uL (0.0-0.8) Baso # (Auto) 0.0 10^3/uL 10^3/ uL (0.0-0.1) Nucleated RBC % (a uto) 0 % % Nucleated RBCs # 0.0 /100WBC /100W BC PT INR Sodium 132 mmol/L L mmol /L (136-145) Potassium 4.4 mmol/L mmol/L (3.5-5.1) Chloride 100 mmol/L mmol/L (98-107) Carbon Dioxide 19 mmol/L L mmol/ L (22-29) Anion Gap 17.4 (5-19) BUN 5 mg/dL L mg/dL (6-20) Creatinine 0.5 mg/dL mg/dL (0.5-0.9) GFR Calculation 146.9 mL/min H mL /min (90-130) Glucose 91 mg/dL mg/dL (65-115) Calculated Osmolal ity 271 mOsm/kg L mOs m/kg (285-295) Calcium 8.7 mg/dL mg/dL (8.5-10.5) Total Bilirubin 0.3 mg/dL mg/dL (0.15-1.2) AST 21 U/L U/L (0-32) ALT 14 U/L U/L (0-33) Alkaline Phosphata se 82 IU/L IU/L (35-105) Total Protein 7.6 g/dL g/dL (6.6-8.7) Albumin 3.7 g/dL g/dL (3.5-5.2) Globulin 3.9 g/dL g/dL (1.3-4.6) Urine Color Yellow (Yellow) Urine Appearance Clear (CLEAR) Urine pH 6.5 (5-7) Ur Specific Gravit y 1.005 (1.005-1.030) Urine Protein Neg (Negative) Urine Glucose (UA) Norm (Normal) Urine Ketones Negative (Negative) Urine Blood 3+ H (Negative) Urine Nitrate Negative (Negative) Urine Bilirubin Neg (Negative) Urine Urobilinogen Norm mg/dL mg/dL (Negative) Ur Leukocyte Joseline ase 1+ H (Negative) Urine RBC None /hpf /hpf (0-2) Urine WBC 10-15 /hpf H /hpf (0-5) Ur Squamous Epith Cells 10-15 /hpf H /hpf (0-5) Amorphous Sediment Not Reportable Urine Bacteria Trace /hpf /hpf (NONE) 10/24/21 18:00 WBC RBC Hgb Hct MCV MCH MCHC RDW Plt Count MPV Neut % (Auto) Lymph % (Auto) [place] % (Auto) Eos % (Auto) Baso % (Auto) Neut # (Auto) Lymph # (Auto) [place] # (Auto) Eos # (Auto) Baso # (Auto) Nucleated RBC % (a uto) Nucleated RBCs # PT 13.90 SECONDS SEC ONDS (12.1-14.9) INR 1.03 (0.8-1.2) Sodium Potassium Chloride Carbon Dioxide Anion Gap BUN Creatinine GFR Calculation Glucose Calculated Osmolal ity Calcium Total Bilirubin AST ALT Alkaline Phosphata se Total Protein Albumin Globulin Urine Color Urine Appearance Urine pH Ur Specific Gravit y Urine Protein Urine Glucose (UA) Urine Ketones Urine Blood Urine Nitrate Urine Bilirubin Urine Urobilinogen Ur Leukocyte Joseline ase Urine RBC Urine WBC Ur Squamous Epith Cells Amorphous Sediment Urine Bacteria Discharge Plan Discharge Patient Disposition: Home Clinical Impression: Threatened miscarriage, Lightheaded, Dehydration Condition: Stable Prescriptions: No Action prenat.vits,anthony,[id number] Tablet 1 tab PO DAILY RF: 0 sertraline [Zoloft] 100 mg tablet 200 mg PO DAILY Qty: 60 RF: 1 buspirone 5 mg tablet 5 mg PO BID Qty: 60 RF: 1 enoxaparin [Lovenox] 40 mg/0.4 mL syringe 40 mg SUBCUT Q12H Qty: 4 RF: 5 Discharge Orders: Discharge ED (Routine); Ordered 10/24/21 Ordered By: Rich Yip Referrals: Vashti Hodge DO [Primary Care Provider] - Discharge Diet: Usual diet Discharge Activity: Resume usual activity Patient Instructions: Threatened Miscarriage (ED), Lightheadedness (ED) Activity Restrictions/Additional Instructions: Thank you for visiting the emergency department. You were seen and evaluated for lightheadedness as well as visual and sensory changes associated with vaginal bleeding and abdominal pain in the context of . The exact cause of your symptoms is unclear. Ultrasound, which is a point in time evaluation, did not reveal any obvious abnormality and your pelvic exam was normal. 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 Please follow-up with your primary care provider. Return to the emergency department for recurrent symptoms, any new neurologic symptoms, uncontrolled pain, or anything else that you are concerned about if it needs emergency department evaluation. Coding Level of Care Code ED Afternoon Nanny for Charu Escobar
[2021-10-24 17:05] VITALS: BP 136/92; PULSE 104; RESP 16; TEMP 37.2; O2SAT 98
[2021-10-24 17:12] LABS: Basophils % 0.4 %; Eosinophils # 0.2 10^3/uL (0.0-0.8); Eosinophils % 2.4 %; Hematocrit 37.8 % (37.0-47.0); Lymphocytes # 1.5 10^3/uL (0.8-4.8); Lymphocytes % 18.3 %; Mean Corpuscular HGB Conc 34.4 g/dL (30.0-36.0); Mean Corpuscular Hemoglobin 29.7 pg (28.0-34.0); Mean Corpuscular Volume 86.3 fl (81-99); Mean Platelet Volume 9.2 fL (7.4-10.4); Monocytes # 0.6 10^3/uL (0.2-0.9); Monocytes % 7.2 %; Neutrophils # 6.03 10^3/uL (1.8-7.7); Neutrophils % 71.5 %; Nucleated Red Blood Cells % 0 %; Platelet Count 293 10^3/cmm (130-400); Red Blood Count 4.38 10^6/uL (4.1-5.3); Red Cell Distribution Width 13.9 % (12.1-15.1); White Blood Count 8.4 10^3/uL (4.0-10.0)
[2021-10-24] MEDS: sodium chloride 0.9% 1,000 ML 999 ML IV (17:25)
[2021-10-24 17:27] LABS: Albumin Level 3.7 g/dL (3.5-5.2); Alkaline Phosphatase 82 IU/L (35-105); Blood Urea Nitrogen 5 mg/dL (6-20); Calcium 8.7 mg/dL (8.5-10.5); Carbon Dioxide 19 mmol/L (22-29); Chloride 100 mmol/L (98-107); Globulin 3.9 g/dL (1.3-4.6); Glomerular Filtration Rate 146.9 mL/min (90-130); Glucose 91 mg/dL (65-115); Osmolality Calculated 271 mOsm/kg (285-295); Sodium 132 mmol/L (136-145); Total Bilirubin 0.3 mg/dL (0.15-1.2); Total Protein 7.6 g/dL (6.6-8.7)
[2021-10-24 17:28] LABS: Glucose Urine UA Norm (Normal); Ketones Urine Negative (Negative); Protein Urine Neg (Negative); Specific Gravity, Urine 1.005 (1.005-1.030); Urine Appearance Clear (CLEAR); Urine Color Yellow (Yellow); pH Urine 6.5 (5-7)
[2021-10-24 17:29] LABS: Add Urine Culture? No; Add Urine Microscopic? YES; Bacteria Urine TRACE /hpf; Bilirubin Urine Neg (Negative); Blood Urine 3+ (Negative); Leukocyte Esterase Urine 1+ (Negative); Nitrate Urine Negative (Negative); Urobilinogen Urine Norm (Negative)
[2021-10-24 17:30] LABS: Alanine Aminotransferase 14 U/L (0-33); Anion Gap 17.4 (5-19); Aspartate Amino Transferase 21 U/L (0-32); Potassium 4.4 mmol/L (3.5-5.1)
--- NOTE | 2021-10-24 17:36 | USR_ITS ---
PROCEDURE INFORMATION: Exam: US First Trimester, Transabdominal and US , Transvaginal Exam date and time: 10/24/2021 5:36 PM Age: 26 years old Clinical indication: complicated by abdominal or pelvic pain; Lower; First trimester (<14 weeks 0 days); Gestational age or lmp: 11 w 1day; ; Additional info: Abdominal pain, vaginal bleeding TECHNIQUE: Imaging protocol: Real-time transabdominal obstetrical ultrasound of the maternal pelvis and a first trimester , less than 14 weeks 0 days, with image documentation. Transvaginal imaging was used for better evaluation of the fetus, adnexa, and/or cervix. COMPARISON: US OB transvaginal [facility] 10/03/2021 2:18 PM FINDINGS: Gestation: Single live intrauterine gestation. Embryonic/ heart rate: heart rate 160 bpm. Extra-embryonic membranes/Placenta: Negative for subchorionic hemorrhage. Amniotic fluid: Subjectively adequate amniotic fluid volume. BIOMETRY: Gestational age (AUA): Estimated gestational age based on the current biometry is 11 weeks, 1 day. Estimated due date based on current biometry is 05/14/2022. [place]-Rump length: [place]-rump length of the pole is 4.23 cm. MATERNAL: Uterus: Unremarkable appearance of the uterus. Cervix: Unremarkable. Right ovary/adnexa: Unremarkable ovary. Left ovary/adnexa: Unremarkable ovary. Intraperitoneal space: No intraperitoneal free fluid. US/US OB <= 14 weeks fetus [id number] IMPRESSION: Single live intrauterine gestation with no acute abnormality identified.
[2021-10-24 18:30] LABS: INR 1.03 (0.8-1.2)
[2021-10-24 19:00] VITALS: PULSE 74; RESP 18; O2SAT 97
[2021-10-24] MEDS: enoxaparin 40 mg/0.4 mL Syringe SUBCUT (19:52)
[2021-10-24 19:55] VITALS: PULSE 88; RESP 16; O2SAT 98
== END 2021-10-24 19:56 | disposition home or self-care (01) ==
PROVIDERS: Emergency Provider Emergency Medicine; PCP Family Medicine
DX: O20.0 Threatened abortion (principal); O26.891 Other specified pregnancy related conditions, first trimester; E86.0 Dehydration; Z3A.11 11 weeks gestation of pregnancy
CPT/HCPCS: 76801; 80053; 81001; 85025; 85610; 87210; 96360; 96372; 99284; J1650; J7030

== ENCOUNTER → 2021-11-04 10:55 | Outpatient (BNVA) | payer MEDICAID, SELFPAY | PROVIDERS: PCP Family Medicine; Visit Provider Obstetrics & Gynecology | DX: O09.899 Supervision of other high risk pregnancies, unspecified trimester (principal); O99.210 Obesity complicating pregnancy, unspecified trimester; E66.9 Obesity, unspecified; Z87.59 Personal history of other complications of pregnancy, childbirth and the puerperium; Z3A.00 Weeks of gestation of pregnancy not specified | CPT/HCPCS: 80053; 82570; 84156; 84315; 84550; 87491; 87591 ==

== ENCOUNTER → 2021-11-11 08:04 | Outpatient (BNVA) | payer MEDICAID, SELFPAY | PROVIDERS: PCP Family Medicine; Visit Provider Nurse Practitioner | DX: F43.12 Post-traumatic stress disorder, chronic (principal) | CPT/HCPCS: 99214 ==

== ENCOUNTER → 2021-11-18 14:04 | Outpatient (BNVA) | payer MEDICAID, SELFPAY | PROVIDERS: PCP Family Medicine; Visit Provider Nurse Practitioner Family | DX: Z20.822 Contact with and (suspected) exposure to COVID-19 (principal); Z86.718 Personal history of other venous thrombosis and embolism | CPT/HCPCS: 87635 ==

== ENCOUNTER → 2021-11-19 07:46 | Outpatient (BNVA) | payer MEDICAID, SELFPAY | PROVIDERS: PCP Family Medicine; Visit Provider Counselor Professional | DX: F43.12 Post-traumatic stress disorder, chronic (principal) | CPT/HCPCS: 90832 ==

== ENCOUNTER → 2021-12-03 12:06 | Outpatient (BNVA) | payer MEDICAID, SELFPAY | PROVIDERS: PCP Family Medicine; Visit Provider Counselor Professional | DX: F43.12 Post-traumatic stress disorder, chronic (principal) | CPT/HCPCS: 90834 ==

== ENCOUNTER → 2021-12-19 08:15 | Outpatient (BNVA) | payer MEDICAID, SELFPAY | PROVIDERS: PCP Family Medicine; Visit Provider Counselor Professional | DX: F43.12 Post-traumatic stress disorder, chronic (principal) | CPT/HCPCS: 90791 ==

== ENCOUNTER → 2022-01-09 08:14 | Outpatient (BNVA) | payer MEDICAID, SELFPAY | PROVIDERS: PCP Family Medicine; Visit Provider Counselor Professional | DX: F43.12 Post-traumatic stress disorder, chronic (principal) | CPT/HCPCS: 90834 ==

== ENCOUNTER → 2022-01-10 07:35 | Outpatient (BNVA) | payer MEDICAID, SELFPAY | PROVIDERS: PCP Family Medicine; Visit Provider Nurse Practitioner | DX: F43.12 Post-traumatic stress disorder, chronic (principal) | CPT/HCPCS: 99214 ==

== ENCOUNTER → 2022-01-17 08:04 | Outpatient (BNVA) | payer MEDICAID, SELFPAY | PROVIDERS: PCP Family Medicine; Visit Provider Counselor Professional | DX: F43.12 Post-traumatic stress disorder, chronic (principal) | CPT/HCPCS: 90832; 90834 ==

== ENCOUNTER → 2022-01-22 09:49 | Outpatient (BNVA) | payer MEDICAID, SELFPAY | PROVIDERS: PCP Family Medicine; Visit Provider Nurse Practitioner Women's Health | DX: O09.899 Supervision of other high risk pregnancies, unspecified trimester (principal); O26.899 Other specified pregnancy related conditions, unspecified trimester; R30.0 Dysuria; Z87.59 Personal history of other complications of pregnancy, childbirth and the puerperium; O99.210 Obesity complicating pregnancy, unspecified trimester; O34.219 Maternal care for unspecified type scar from previous cesarean delivery; F41.9 Anxiety disorder, unspecified; F32.9 Major depressive disorder, single episode, unspecified; Z3A.00 Weeks of gestation of pregnancy not specified | CPT/HCPCS: 84315; 87077; 87086; 87184 ==

== ENCOUNTER → 2022-01-28 07:51 | Outpatient (BNVA) | payer MEDICAID, SELFPAY | PROVIDERS: PCP Family Medicine; Visit Provider Counselor Professional | DX: F43.12 Post-traumatic stress disorder, chronic (principal) | CPT/HCPCS: 90832 ==

== ENCOUNTER → 2022-02-06 08:07 | Outpatient (BNVA) | payer MEDICAID, SELFPAY | PROVIDERS: PCP Family Medicine; Visit Provider Counselor Professional | DX: F43.12 Post-traumatic stress disorder, chronic (principal) | CPT/HCPCS: 90834 ==

== ENCOUNTER → 2022-02-11 07:29 | Outpatient (BNVA) | payer MEDICAID, SELFPAY | PROVIDERS: PCP Family Medicine; Visit Provider Counselor Professional | DX: F43.12 Post-traumatic stress disorder, chronic (principal) | CPT/HCPCS: 90832 ==

== ENCOUNTER → 2022-02-20 07:33 | Outpatient (BNVA) | payer MEDICAID, SELFPAY | PROVIDERS: PCP Family Medicine; Visit Provider Counselor Professional | DX: F43.12 Post-traumatic stress disorder, chronic (principal) | CPT/HCPCS: 90832 ==

== ENCOUNTER → 2022-03-05 10:51 | Outpatient (BNVA) | payer MEDICAID, SELFPAY | PROVIDERS: PCP Family Medicine; Visit Provider Obstetrics & Gynecology | DX: O09.899 Supervision of other high risk pregnancies, unspecified trimester (principal); O23.40 Unspecified infection of urinary tract in pregnancy, unspecified trimester | CPT/HCPCS: 84315; 87086 ==

== ENCOUNTER → 2022-03-06 07:40 | Outpatient (BNVA) | payer MEDICAID, SELFPAY | PROVIDERS: PCP Family Medicine; Visit Provider Counselor Professional | DX: F43.12 Post-traumatic stress disorder, chronic (principal) | CPT/HCPCS: 90834; 90832 ==

== ENCOUNTER → 2022-03-12 10:44 | Outpatient (BNVA) | payer MEDICAID, SELFPAY | PROVIDERS: PCP Family Medicine; Visit Provider Obstetrics & Gynecology | DX: O09.899 Supervision of other high risk pregnancies, unspecified trimester (principal); Z3A.00 Weeks of gestation of pregnancy not specified | CPT/HCPCS: 82570; 84156; 84315; 85027 ==

== ENCOUNTER → 2022-03-20 07:30 | Outpatient (BNVA) | payer MEDICAID, SELFPAY | PROVIDERS: PCP Family Medicine; Visit Provider Counselor Professional | DX: F43.12 Post-traumatic stress disorder, chronic (principal) | CPT/HCPCS: 90832 ==

== ENCOUNTER 2022-03-23 15:49 | Outpatient (CLI) | payer MEDICAID, SELFPAY ==
[2022-03-23] VITALS (9 sets, daily range): BP systolic 107–160; BP diastolic 60–81; PULSE 67–113; BMI 51.0
[2022-03-23 17:15] LABS: Specific Gravity, Urine 1.025 (1.005-1.030); Urine Appearance Hazy (CLEAR); Urine Color Yellow (Yellow); pH Urine 6 (5-7)
[2022-03-23 17:16] LABS: Add Urine Culture? No; Bacteria Urine 2+ /hpf; Bilirubin Urine Neg (Negative); Blood Urine Neg (Negative); Glucose Urine UA Norm (Normal); Ketones Urine 1+ (Negative); Leukocyte Esterase Urine 2+ (Negative); Nitrate Urine Negative (Negative); Protein Urine Neg (Negative); Squamous Epithelial Cell Urine 15-25 /hpf (0-5); Urobilinogen Urine 1 mg/dL (Negative); WBC Urine 15-25 /hpf (0-5)
== END 2022-03-23 18:20 | disposition home or self-care (01) ==
LOC: OPOB 15:50 → OBGYN 18:18
PROVIDERS: PCP Family Medicine; Visit Provider Obstetrics & Gynecology
DX: O26.899 Other specified pregnancy related conditions, unspecified trimester (principal); Z3A.00 Weeks of gestation of pregnancy not specified; R10.9 Unspecified abdominal pain
CPT/HCPCS: 59025; 81001; 99211

== ENCOUNTER → 2022-03-26 07:21 | Outpatient (BNVA) | payer MEDICAID, SELFPAY | PROVIDERS: PCP Family Medicine; Visit Provider Nurse Practitioner | DX: F43.12 Post-traumatic stress disorder, chronic (principal) | CPT/HCPCS: 99214 ==

== ENCOUNTER 2022-03-27 11:40 | Outpatient (CLI) | payer MEDICAID, SELFPAY ==
[2022-03-27 11:40] VITALS: BMI 50.9
[2022-03-27 11:48] VITALS: BP 130/72; PULSE 82
[2022-03-27 12:08] VITALS: BP 138/81; PULSE 95
[2022-03-27 12:28] VITALS: BP 132/78; PULSE 82
[2022-03-27 12:47] VITALS: BP 132/78; PULSE 82
== END 2022-03-27 12:35 | disposition home or self-care (01) ==
LOC: OPOB 11:41 → OBGYN 11:42
PROVIDERS: PCP Family Medicine; Visit Provider Obstetrics & Gynecology
DX: O26.899 Other specified pregnancy related conditions, unspecified trimester (principal); Z3A.00 Weeks of gestation of pregnancy not specified
CPT/HCPCS: 59025; 99211

== ENCOUNTER 2022-03-30 14:58 | Outpatient (CLI) | payer MEDICAID, SELFPAY ==
[2022-03-30 15:15] VITALS: BP 119/68; PULSE 76; TEMP 35.3
[2022-03-30 15:30] VITALS: BP 111/69; PULSE 83
--- NOTE | 2022-03-30 15:30 | USR_ITS ---
PROCEDURE INFORMATION: Exam: US Biophysical Profile Without Non-Stress Test Exam date and time: 03/30/2022 3:50 PM Age: 27 years old Clinical indication: Other: Mother thinks decreased movement today; TECHNIQUE: Imaging protocol: US biophysical profile without non-stress testing. COMPARISON: US OB BPP w NST [facility] 03/27/2022 10:15 AM FINDINGS: BIOPHYSICAL PROFILE: breathing movement (BPP): 2 out of 2. body movement (BPP): 2 out of 2. tone (BPP): 2 out of 2. Amniotic fluid (BPP): Normal at 13.5 cm. 2 out of 2. presentation is vertex. heart rate is 160 bpm. Cervical length is normal at 3.8 cm and is closed. US/US OB BPP wo NST [id number] IMPRESSION: Biophysical profile score is normal, 8 out of 8.
[2022-03-30 15:31] VITALS: RESP 17
[2022-03-30 15:42] VITALS: BMI 50.3
[2022-03-30 15:45] VITALS: BP 114/59; PULSE 88
[2022-03-30 16:00] VITALS: BP 115/65
[2022-03-30 16:15] VITALS: BP 106/72; PULSE 102
== END 2022-03-30 16:30 | disposition home or self-care (01) ==
LOC: OPOB 15:07 → OBGYN 15:09
PROVIDERS: PCP Family Medicine; Visit Provider Obstetrics & Gynecology
DX: O36.8190 Decreased fetal movements, unspecified trimester, not applicable or unspecified (principal); Z3A.00 Weeks of gestation of pregnancy not specified
CPT/HCPCS: 59025; 76819; 99211

== ENCOUNTER → 2022-04-07 08:01 | Outpatient (BNVA) | payer MEDICAID, SELFPAY | PROVIDERS: PCP Family Medicine; Visit Provider Counselor Professional | DX: F43.12 Post-traumatic stress disorder, chronic (principal) | CPT/HCPCS: 90832 ==

== ENCOUNTER 2022-04-08 15:08 | Outpatient (CLI) | payer MEDICAID, SELFPAY ==
--- NOTE | 2022-04-08 15:00 | US_ITS ---
NOTE: Report was unsigned for reason: Order was edited. Original Signature date and time was: 04/08/2022 @ 1617 WS: [id number] ULTRASOUND OB FOCUSED HISTORY: Z87.59 - Personal history of other complications of ..., Amniotic fluid index. COMPARISON: 03/30/2022 Single intrauterine gestation in vertex presentation. Cervix is obscured. Placenta is anterior and grade 2. heart rate at 153 BPM. Amniotic fluid index: 15.0 cm which is near the 50th percentile. [facility] US/US OB >= 14 weeks fetus [id number] IMPRESSION: Normal amniotic fluid index.
== END 2022-04-08 15:09 | disposition home or self-care (01) ==
LOC: RAD 15:18
PROVIDERS: PCP Family Medicine; Visit Provider Obstetrics & Gynecology
DX: Z87.59 Personal history of other complications of pregnancy, childbirth and the puerperium (principal)
CPT/HCPCS: 76805; 76815

== ENCOUNTER 2022-04-08 15:38 | Outpatient (CLI) | payer MEDICAID, SELFPAY ==
[2022-04-08 15:38] VITALS: BMI 50.2
[2022-04-08 15:56] VITALS: BP 111/57; PULSE 76
[2022-04-08 16:16] VITALS: BP 115/67; PULSE 96
--- NOTE | 2022-04-08 16:25 | PM.ACPR ---
Procedure/Consent Procedure Narrative: NONSTRESS TEST: Place of test: [facility] – [place], [place] Indication: 27-year-old at 34 weeks and 6 days--morbid obesity, history of IUGR, history of DVT on Lovenox Date and time of test: 04/08/2022, 4:30 PM Baseline: 150 Variability: Moderate variability Accelerations: Accelerations present Decelerations: No decelerations Tocometry: No contractions INTERPRETATION: NST reactive, continue kick counts
[2022-04-08 16:36] VITALS: BP 129/87; PULSE 73
== END 2022-04-08 15:40 | disposition home or self-care (01) ==
LOC: OPOB 15:45 → OBGYN 15:47
PROVIDERS: Absent Provider Obstetrics & Gynecology; PCP Family Medicine; Visit Provider Obstetrics & Gynecology
DX: O26.899 Other specified pregnancy related conditions, unspecified trimester (principal); Z3A.00 Weeks of gestation of pregnancy not specified; Z87.51 Personal history of pre-term labor
CPT/HCPCS: 59025; 84315; 99211

== ENCOUNTER 2022-04-16 06:58 | Outpatient (CLI) | payer MEDICAID, SELFPAY ==
--- NOTE | 2022-04-16 07:15 | US_ITS ---
WS: [id number] BIOPHYSICAL PROFILE AMNIOTIC FLUID HISTORY: Z87.59 - Personal history of other complications of . COMPARISON: 04/08/2022 Cardiac activity: 144 bpm. Cervix: closed. Placenta: Fundal and anterior. No previa or abruption. Placenta grade: 2 Parameters are as follows: Breathin Movement: 2 Tone: 2 Fluid volume: 2 An occluded index: 14.3 cm which is near the 50th percentile for age. Largest vertical pocket of amni otic fluid 5.4 cm. US/US OB BPP wo NST [id number] IMPRESSION: 1. Biophysical profile score: 8/8. 2. Normal amniotic fluid index.
== END 2022-04-16 06:59 | disposition home or self-care (01) ==
LOC: RAD 06:59
PROVIDERS: PCP Family Medicine; Visit Provider Obstetrics & Gynecology
DX: O09.899 Supervision of other high risk pregnancies, unspecified trimester (principal); Z87.59 Personal history of other complications of pregnancy, childbirth and the puerperium
CPT/HCPCS: 76819

== ENCOUNTER 2022-04-16 07:20 | Outpatient (CLI) | payer MEDICAID, SELFPAY ==
[2022-04-16] VITALS (7 sets, daily range): BP systolic 108–149; BP diastolic 54–79; PULSE 71–88; RESP 18; TEMP 30–36.8; BMI 51.7
== END 2022-04-16 08:30 | disposition home or self-care (01) ==
LOC: OPOB 07:27 → OBGYN 07:27
PROVIDERS: PCP Family Medicine; Visit Provider Obstetrics & Gynecology
DX: O09.299 Supervision of pregnancy with other poor reproductive or obstetric history, unspecified trimester (principal); Z3A.00 Weeks of gestation of pregnancy not specified
CPT/HCPCS: 59025

== ENCOUNTER 2022-04-28 08:51 | Outpatient (CLI) | payer MEDICAID, SELFPAY ==
--- NOTE | 2022-04-28 10:15 | US_ITS ---
WS: [id number] BIOPHYSICAL PROFILE AMNIOTIC FLUID HISTORY: Z87.59 - Personal history of other complications of . COMPARISON: 04/16/2022 Cardiac activity: 131 bpm. Cervix: closed. Difficult to visualize due to head deep within the pelvis. Position: Vertex. Placenta: Fundal, anterior. No previa or abruption. Placenta grade: 2 Parameters are as follows: Breathin Movement: 2 Tone: 2 Fluid volume: 2 Amniotic fluid index: 11.9 cm. Largest vertical pocket is 4.2 cm. US/US OB BPP wo NST [id number] IMPRESSION: 1. Biophysical profile score: 8/8. 2. Normal amniotic fluid index.
== END 2022-04-28 08:52 | disposition home or self-care (01) ==
PROVIDERS: PCP Family Medicine; Visit Provider Obstetrics & Gynecology
DX: F43.12 Post-traumatic stress disorder, chronic
CPT/HCPCS: 90832; 76819; 84315

== ENCOUNTER 2022-04-28 09:56 | Outpatient (CLI) | payer MEDICAID, SELFPAY ==
[2022-04-28 10:41] VITALS: BP 117/77; PULSE 102
[2022-04-28 10:56] VITALS: BP 122/60; PULSE 82
[2022-04-28 11:15] VITALS: RESP 17
[2022-04-28 11:19] VITALS: BMI 37.2
== END 2022-04-28 11:17 | disposition home or self-care (01) ==
LOC: OPOB 09:56 → OBGYN 09:58
PROVIDERS: PCP Family Medicine; Visit Provider Obstetrics & Gynecology
DX: O26.899 Other specified pregnancy related conditions, unspecified trimester (principal); Z3A.00 Weeks of gestation of pregnancy not specified; Z86.718 Personal history of other venous thrombosis and embolism
CPT/HCPCS: 59025; 87081

== ENCOUNTER → 2022-08-12 13:20 | Outpatient (BNVA) | payer MEDICAID, SELFPAY | PROVIDERS: PCP Family Medicine; Visit Provider Nurse Practitioner Women's Health | DX: Z32.01 Encounter for pregnancy test, result positive (principal) | CPT/HCPCS: 84702 ==

== ENCOUNTER → 2023-04-29 09:56 | Outpatient (BNVA) | payer MEDICAID, SELFPAY | PROVIDERS: PCP Family Medicine; Visit Provider Nurse Practitioner Psychiatric/Mental Health | DX: Z03.89 Encounter for observation for other suspected diseases and conditions ruled out (principal) | CPT/HCPCS: 80053; 81025; 84439; 84443; 85025 ==

== ENCOUNTER → 2023-09-02 09:04 | Outpatient (BNVA) | payer MEDICAID, SELFPAY | PROVIDERS: PCP Family Medicine; Visit Provider Nurse Practitioner Women's Health | DX: Z32.00 Encounter for pregnancy test, result unknown (principal) | CPT/HCPCS: 81025 ==

== ENCOUNTER → 2023-09-09 07:51 | Outpatient (BNVA) | payer MEDICAID, SELFPAY | PROVIDERS: PCP Family Medicine; Visit Provider Obstetrics & Gynecology | DX: Z34.91 Encounter for supervision of normal pregnancy, unspecified, first trimester (principal); Z3A.01 Less than 8 weeks gestation of pregnancy | CPT/HCPCS: 76817 ==

== ENCOUNTER 2023-09-21 17:53 | Emergency (ER) | payer MEDICAID, SELFPAY ==
[2023-09-21 17:57] VITALS: BP 133/90; PULSE 87; RESP 16; TEMP 36.8; O2SAT 99; BMI 52.0
[2023-09-21 19:17] LABS: Basophils # 0.1 10^3/uL (0.0-0.1); Basophils % 0.5 %; Eosinophils # 0.2 10^3/uL (0.0-0.8); Eosinophils % 1.4 %; Hematocrit 41.9 % (36-47); Lymphocytes # 2.9 10^3/uL (0.8-4.8); Lymphocytes % 27.7 %; Mean Corpuscular HGB Conc 33.4 g/dL (30-55); Mean Corpuscular Hemoglobin 29.7 pg (27-33); Mean Platelet Volume 8.8 fL (7.4-10.4); Monocytes # 0.6 10^3/uL (0.2-0.9); Monocytes % 6.1 %; Neutrophils # 6.69 10^3/uL (1.8-7.7); Nucleated Red Blood Cells % 0 %; Platelet Count 310 10^3/cmm (157-399); Red Blood Count 4.71 10^6/uL (3.85-5.65); Red Cell Distribution Width 13.6 % (12.1-15.1); White Blood Count 10.45 10^3/uL (3.29-11.43)
[2023-09-21 19:43] LABS: Alanine Aminotransferase 15 U/L (0-33); Albumin Level 3.7 g/dL (3.5-5.2); Alkaline Phosphatase 79 U/L (35-105); Anion Gap 16.9 (5-19); Aspartate Amino Transferase 18 U/L (0-32); Blood Urea Nitrogen 7 mg/dL (6-20); Calcium 9.3 mg/dL (8.5-10.5); Carbon Dioxide 19 mmol/L (22-29); Chloride 103 mmol/L (98-107); Globulin 3.8 g/dL (1.3-4.6); Glomerular Filtration Rate 117.4 mL/min (90-130); Glucose 86 mg/dL (65-115); Osmolality Calculated 277 mOsm/kg (285-295); Potassium 3.9 mmol/L (3.5-5.1); Sodium 135 mmol/L (136-145); Total Bilirubin 0.5 mg/dL (0.15-1.2); Total Protein 7.5 g/dL (6.6-8.7)
--- NOTE | 2023-09-21 19:50 | USR_ITS ---
PROCEDURE INFORMATION: Exam: US , Limited Exam date and time: 09/21/2023 8:02 PM Age: 28 years old Clinical indication: Lmp or gestational age (in weeks): 9w 5d; Antepartum complications; Bleeding; ; Additional info: Vaginal bleeding, cramping x 1 day, about 10 weeks gestation TECHNIQUE: Imaging protocol: Real-time ultrasound of the maternal uterus with image documentation. Exam focused on the clinical indication. COMPARISON: US OB transvaginal [id number] 09/09/2023 7:57 AM FINDINGS: Gestation: Single living intrauterine measuring 9 weeks 5 days by crown-rump length. heart rate: The heart rate measures 186 bpm. Placenta: There is a subchorionic hematoma measuring up to 4.3 x 4.2 x 2.9 cm on the right. BIOMETRY: [place]-Rump length (CRL): 2.9 cm and 9 weeks 5 days. MATERNAL: Right ovary/adnexa: The right ovary measures 4.1 x 3.6 x 2.5 cm and 19.1 mL with vascular flow. Left ovary/adnexa: The left ovary measures 4.5 x 2.5 x 1.9 cm and 11.1 mL with vascular flow. US/US OB limited [id number] IMPRESSION: Single living intrauterine . Subchorionic hematoma on the right measuring 4.3 x 4.2 x 2.9 cm.
--- NOTE | 2023-09-21 19:51 | W.ED.PREGNAN ---
HPI - General: Chief complaint: Vaginal Bleeding Stated complaint: bleeding @ 10 weeks preg Time Seen by Provider: 09/21/23 19:16 History of Present Illness: Patient presents to the ER today with bleeding and passing clots. This started today. Patient states she is about 10 weeks and has not seen [employer] yet. Patient is having some mild lower pelvic pain. Patient has had no overt cramps or passing of tissue. [facility] ED PFSH: Medical History Anxiety and depression Reports PTSD, anxiety, and depression. Follows up with behavioral health care--sees Dr. Mena and Мария Gabriel for therapy. Treated with prazosin, Zoloft, and trazodone. History of deep venous thrombosis or pulmonary embolus (~2013) Developed PE in 2013 after being hospitalized for approximately 1 week after having laparoscopic cholecystectomy with ERCP while . Hospitalized in [place]. Was on anticoagulants rest of and for a few months afterwards. She also ended up with blood clots in her arms after her 01/2021 delivery, and was started on eliquis. No pertinent past medical history Denies diabetes, asthma, hypertension, seizures PCP: Dr. Hodge Psychiatric care Surgical History Hx laparoscopic cholecystectomy (~2013) 2013: Laparoscopic cholecystectomy with ERCP 1 to 2 days later during . Was hospitalized for approximately 1 week. Performed in [place], [place]. Hx of section 1). 02/20/2021---Primary lowest transverse delivery via Pfannenstiel incision. Surgery done at 35 weeks for IUGR oligohydramnios and a category 2 tracing operative reports were requested and obtained---> double layer closure, no extensions 2). 05/07/2022 Repeat Section at [facility] Family History Family/Other Diabetes Maternal aunt Hypertension Maternal aunt Family history of thyroid problem Maternal aunt Mother Family history of thyroid problem Grandmother Family history of thyroid problem Paternal grandmother Maternal grandmother Denies family history of Colon cancer Ovarian cancer Heart disease Hyperlipidemia Breast cancer Uterine cancer Stroke Social History Smoking and tobacco/nicotine status: former use of tobacco/nicotine Substance/Drug Use: never Physical Exam HENMT: COMMON NORMALS: normocephalic, atraumatic, hearing grossly normal bilaterally, external ears normal, Normal external nose present, moist oral mucous membranes and oropharynx normal HEAD & SCALP: normocephalic and atraumatic NOSE: Normal external nose present EXTERNAL EAR: Yes external ears normal Neck/C-Spine: COMMON NORMALS: full ROM, no lymphadenopathy, supple, no meningeal signs, no JVD and Thyroid normal THYROID: Thyroid normal Chest: COMMONS NORMALS: normal inspection of the chest and normal palpation of entire chest wall Resp: COMMON NORMALS: normal respiratory effort, No retractions, No use of accessory muscles and clear to auscultation bilaterally AUSCULTATION: clear to auscultation bilaterally Cardio: COMMON NORMALS: no JVD, regular rate, regular rhythm, S1 normal heart sound present, S2 normal heart sound present, No gallops present (Cardio), No clicks present (Cardio), No murmurs present (Cardio) and No rub (Cardio) RATE: regular rate RHYTHM: regular rhythm HEART SOUNDS: S1 normal heart sound present and S2 normal heart sound present GI: COMMON NORMALS: Normal to inspection, nondistended, normoactive bowel sounds present (Morbidly obese), Soft to palpation, non-tender, No hepatosplenomegaly present and no masses PALPATION: Yes Soft to palpation and Yes No hepatosplenomegaly present : COMMON NORMALS: Yes no CVA tenderness BLADDER/KIDNEY EXAM: Yes no CVA tenderness Back/Pelvis: COMMON NORMALS: no CVA tenderness Neuro: MENINGEAL SIGNS: Yes no meningeal signs Course Vital Signs: Vital signs: Vital Signs Temperature 98.3 F 09/21/23 17:57 Pulse Rate 87 09/21/23 17:57 Respiratory Rate 16 09/21/23 17:57 Blood Pressure 133/90 09/21/23 17:57 Pulse Oximetry 99 09/21/23 17:57 Oxygen Delivery Me thod Room Air 09/21/23 17:57 MDM - OB/Uterine Contractions Medical Decision Making Patient presents to the ER being and having vaginal bleeding. Ultrasound was done which showed single intrauterine living , subchorionic hematoma on the right lab work was essentially unremarkable. Other than a positive hCG. Patient should keep her [employer] appointment she has already scheduled for tomorrow. Differential Diagnosis Unlikely normal delivery at term, hemorrhage, -induced hypertension, premature labor, pre-eclampsia or eclampsia Medical Records I reviewed the patient's medical records. Lab Data I reviewed the patient's lab results. 09/21/23 19:03 09/21/23 19:03 Radiology Impressions Obstetrics Ultrasound 09/21/23 19:50 IMPRESSION: Single living intrauterine . Subchorionic hematoma on the right measuring 4.3 x 4.2 x 2.9 cm. Laboratory Results WBC 10.45 10^3/uL (3.29-11.43) 09/21/23 19:03 RBC 4.71 10^6/uL (3.85-5.65) 09/21/23 19:03 Hgb 14.00 g/dL (11.27-16.99) 09/21/23 19: Hct 41.9 % (36-47) 09/21/23 19:03 MCV 89.0 fl (85-98) 09/21/23 19: MCH 29.7 pg (27-33) 09/21/23 19: MCHC 33.4 g/dL (30-55) 09/21/23 19:03 RDW 13.6 % (12.1-15.1) 09/21/23 19:03 Plt Count 310 10^3/cmm (157-399) 09/21/23 19:03 MPV 8.8 fL (7.4-10.4) 09/21/23 19:03 Neut % (Auto) 64.0 % 09/21/23: Lymph % (Auto) 27.7 % 09/21/23 19:03 Person % (Auto) 6.1 % 09/21/23 19:03 Eos % (Auto) 1.4 % 09/21/23 19:03 Baso % (Auto) 0.5 % 09/21/23 19:03 Neut # (Auto) 6.69 10^3/uL (1.8-7.7) 09/21/23 19:03 Lymph # (Auto) 2.9 10^3/uL (0.8-4.8) 09/21/23 19:03 Person # (Auto) 0.6 10^3/uL (0.2-0.9) 09/21/23 19:03 Eos # (Auto) 0.2 10^3/uL (0.0-0.8) 09/21/23 19:03 Baso # (Auto) 0.1 10^3/uL (0.0-0.1) 09/21/23 19:03 Nucleated RBC % (auto) 0 % 09/21/23 19:03 Nucleated RBCs # 0.0 /100WBC 09/21/23 19:03 Sodium 135 mmol/L (136-145) L 09/21/23 19:03 Potassium 3.9 mmol/L (3.5-5.1) 09/21/23 19:03 Chloride 103 mmol/L (98-107) 09/21/23 19:03 Carbon Dioxide 19 mmol/L (22-29) L 09/21/23 19:03 Anion Gap 16.9 (5-19) 09/21/23 19:03 BUN 7 mg/dL (6-20) 09/21/23 19:03 Creatinine 0.6 mg/dL (0.5-0.9) 09/21/23 19:03 GFR Calculation 117.4 mL/min (90-130) 09/21/23 19:03 Glucose 86 mg/dL (65-115) 09/21/23 19:03 Calculated Osmolality 277 mOsm/kg (285-295) L 09/21/23 19:03 Calcium 9.3 mg/dL (8.5-10.5) 09/21/23 19:03 Total Bilirubin 0.5 mg/dL (0.15-1.2) 09/21/23 19:03 AST 18 U/L (0-32) 09/21/23 19:03 ALT 15 U/L (0-33) 09/21/23 19:03 Alkaline Phosphatase 79 U/L (35-105) 09/21/23 19:03 Total Protein 7.5 g/dL (6.6-8.7) 09/21/23 19:03 Albumin 3.7 g/dL (3.5-5.2) 09/21/23 19:03 Globulin 3.8 g/dL (1.3-4.6) 09/21/23 19:03 Ser , Semi-Qnt 84083.00 mIU/mL 09/21/23 19:03 Urine Color Yellow (Yellow) 09/21/23 20:16 Urine Appearance Clear (CLEAR) 09/21/23 20:16 Urine pH 5 (5-7) 09/21/23 20:16 Ur Specific [place] 1.030 (1.005-1.030) 09/21/23 20:16 Urine Protein Neg (Negative) 09/21/23 20:16 Urine Glucose (UA) Norm (Normal) 09/21/23 20:16 Urine Ketones 1+ (Negative) H 09/21/23 20:16 Urine Blood 3+ (Negative) H 09/21/23 20:16 Urine Nitrate Negative (Negative) 09/21/23 20:16 Urine Bilirubin Neg (Negative) 09/21/23 20:16 Urine Urobilinogen Norm mg/dL (Negative) 09/21/23 20:16 Ur Leukocyte Esterase Negative (Negative) 09/21/23 20:16 Urine RBC 5-10 /hpf (0-2) H 09/21/23 20:16 Urine WBC 0-4 /hpf (0-5) H 09/21/23 20:16 Ur Squamous Epith Cells 5-10 /hpf (0-5) H 09/21/23 20:16 Amorphous Sediment 1+ /hpf 09/21/23 20:16 Urine Bacteria Trace /hpf (NONE) 09/21/23 20:16 Urine Mucus 2+ /hpf 09/21/23 20:16 Blood Type A Positive 09/21/23 19:03 Rho(D) Type Rh positive 09/21/23 19:03 Antibody Screen Negative 09/21/23 19:03 All radiology interpretation(s) finalized by discharge Discharge Plan Discharge Patient Disposition: Home Clinical Impression: Vaginal bleeding during Condition: Stable Prescriptions: No Action buspirone 30 mg tablet 30 mg PO BID Qty: 60 1RF Rx Instructions: Take one tablet by mouth every morning and evening; stop other doses of this medication duloxetine 60 mg capsule,delayed release(DR/EC) 120 mg PO DAILY Qty: 60 1RF Rx Instructions: Take two capsules by mouth every morning trazodone 100 mg tablet 200 mg PO .q hs PRN (Reason: insomnia) Qty: 60 1RF Rx Instructions: Take two tablets at bedtime, if needed for sleep/insomnia prazosin 2 mg capsule 2 mg PO .q hs Qty: 30 1RF Rx Instructions: Take one capsule daily at bedtime; stop other dose of this medication Discharge Orders: Discharge ED (Routine); Ordered 09/21/23 Ordered By: Mihcael Plata Referrals: Vashti Hodge DO [Primary Care Provider] - 1-3 days Patient Instructions: at 7 to 10 Weeks (ED) Activity Restrictions/Additional Instructions: Please keep your appointment with your [employer] that has been previously scheduled for tomorrow please go over the ultrasound results with him at that time. Coding Level of Care Code ED Mandarin Speaking Nanny for Charu Escobar
--- NOTE | 2023-09-21 20:07 | PC.NURSE ---
NURSE ASSUMED CARE AT 2000
[2023-09-21 20:45] LABS: Add Urine Culture? No; Add Urine Microscopic? YES; Amorphous Sediment Urine 1+ /hpf; Bacteria Urine TRACE /hpf; Bilirubin Urine Neg (Negative); Blood Urine 3+ (Negative); Glucose Urine UA Norm (Normal); Ketones Urine 1+ (Negative); Leukocyte Esterase Urine Negative (Negative); Mucus Urine 2+ /hpf; Nitrate Urine Negative (Negative); Protein Urine Neg (Negative); Urine Appearance Clear (CLEAR); Urine Color Yellow (Yellow); Urobilinogen Urine Norm (Negative); WBC Urine 0-4 /hpf (0-5); pH Urine 5 (5-7)
[2023-09-21 21:58] VITALS: BP 123/89; PULSE 90; O2SAT 98
== END 2023-09-21 21:59 | disposition home or self-care (01) ==
PROVIDERS: Emergency Provider Emergency Medicine; PCP Family Medicine
DX: O46.91 Antepartum hemorrhage, unspecified, first trimester (principal); Z3A.10 10 weeks gestation of pregnancy; Z87.891 Personal history of nicotine dependence
CPT/HCPCS: 36415; 76815; 80053; 81001; 84702; 85025; 86850; 86900; 99284

== ENCOUNTER → 2023-09-22 13:56 | Outpatient (BNVA) | payer MEDICAID, SELFPAY | PROVIDERS: PCP Family Medicine; Visit Provider Nurse Practitioner Women's Health | DX: Z34.90 Encounter for supervision of normal pregnancy, unspecified, unspecified trimester (principal); Z3A.00 Weeks of gestation of pregnancy not specified | CPT/HCPCS: 80307; 82947; 83036; 84315; 84439; 84481; 85025; 86592; 86762; 86803; 87086; 87340; 87491; 87591; 87806 ==

== ENCOUNTER → 2023-10-16 10:52 | Outpatient (BNVA) | payer MEDICAID, SELFPAY | PROVIDERS: PCP Family Medicine; Visit Provider Obstetrics & Gynecology | DX: O46.91 Antepartum hemorrhage, unspecified, first trimester (principal); Z3A.13 13 weeks gestation of pregnancy | CPT/HCPCS: 76801 ==

== ENCOUNTER → 2023-10-20 08:28 | Outpatient (BNVA) | payer MEDICAID, SELFPAY | PROVIDERS: PCP Family Medicine; Visit Provider Obstetrics & Gynecology | DX: Z34.90 Encounter for supervision of normal pregnancy, unspecified, unspecified trimester (principal) | CPT/HCPCS: 82950; 84315; 87491; 87591; 88175 ==

== ENCOUNTER 2024-04-25 18:20 | Inpatient (IN) | payer MEDICAID, SELFPAY ==
[2024-04-25] VITALS (9 sets, daily range): BP systolic 121–173; BP diastolic 76–114; PULSE 42–47; RESP 16–29; TEMP 36.8; O2SAT 95–100; BMI 54.3
--- NOTE | 2024-04-25 18:22 | XRR_ITS ---
PROCEDURE INFORMATION: Exam: XR Chest Exam date and time: 04/25/2024 6:51 PM Age: 29 years old Clinical indication: Pain; Chest pressure; Additional info: Cp TECHNIQUE: Imaging protocol: Radiologic exam of the chest. Views: 1 view. COMPARISON: No relevant prior studies available. FINDINGS: Lungs: No focal consolidation. Pleural spaces: No evidence of pneumothorax. No evidence of pleural effusion. Heart/Mediastinum: Cardiomediastinal silhouette is within normal limits. Bones/joints: No evidence of acute osseous abnormality. XR/XR chest 1V portable [id number] IMPRESSION: 1. No acute cardiopulmonary abnormality.
--- NOTE | 2024-04-25 18:23 | ECG_ITS ---
[facility] Test Date: 2024-04-25 Pat Name: Gabby Gomez Department: Room: Gender: Female Prevention Coordinator: : 1995 Requested By: Robb Fregoso Order Number: [id number] Josselyn MD: Crystal Obrien M.D. Measurements Intervals [place] Rate: 48 P: 22 [place]: 183 QRS: 27 QRSD: 94 T: 10 QT: 440 QTc: 393 Interpretive Statements SINUS BRADYCARDIA No previous ECG available for comparison Electronically Signed On 04-26-2024 23:42:08 CDT by Crystal Obrien M.D. [id number]
--- NOTE | 2024-04-25 18:49 | ED_ITS ---
HPI - Chest Pain 2 General: Chief Complaint: Chest Pain Stated Complaint: CP,SOB Time Seen by Provider: 04/25/24 18:51 History of Present Illness: Patient presents to the ER with a 2-day history of chest heaviness and shortness of breath. Patient states this has been getting worse. Patient is on Lovenox 180 mg twice daily for history of PE. Patient did states she missed 1 dose yesterday. Currently rating her pain 6 out of 10. Patient's O2 sats 100% on room air Review of Systems 2 General: Reports: 10 or more systems reviewed and unremarkable except in HPI and below PFSH ED 2 PFSH: Medical History Major depressive disorder, recurrent, moderate Major depressive disorder, recurrent episode, in partial remission Psychiatric care No pertinent past medical history Denies diabetes, asthma, hypertension, seizures PCP: Dr. Hodge Anxiety and depression Reports PTSD, anxiety, and depression. Follows up with behavioral health care--sees Dr. Mena and Мария Gabriel for therapy. Treated with prazosin, Zoloft, and trazodone. History of deep venous thrombosis or pulmonary embolus (~2013) Developed PE in 2013 after being hospitalized for approximately 1 week after having laparoscopic cholecystectomy with ERCP while . Hospitalized in [place]. Was on anticoagulants rest of and for a few months afterwards. She also ended up with blood clots in her arms after her 01/2021 delivery, and was started on eliquis. Surgical History Hx of section 1). 02/20/2021---Primary lowest transverse delivery via Pfannenstiel incision. Surgery done at 35 weeks for IUGR oligohydramnios and a category 2 tracing operative reports were requested and obtained---> double layer closure, no extensions 2). 05/07/2022 Repeat Section at [facility] Hx laparoscopic cholecystectomy (~2013) 2013: Laparoscopic cholecystectomy with ERCP 1 to 2 days later during . Was hospitalized for approximately 1 week. Performed in [place], [place]. Family History Family/Other Diabetes Maternal aunt Hypertension Maternal aunt Family history of thyroid problem Maternal aunt Mother Family history of thyroid problem Grandmother Family history of thyroid problem Paternal grandmother Maternal grandmother Denies family history of Colon cancer Ovarian cancer Heart disease Hyperlipidemia Breast cancer Uterine cancer Stroke Social History Smoking and tobacco/nicotine status: former use of tobacco/nicotine Substance/Drug Use: never Physical Exam 2 Const: COMMON NORMALS: no acute distress, average body habitus, patient oriented x3, no limitations, healthy appearing, alert and well nourished HENMT: COMMON NORMALS: normocephalic, atraumatic, hearing grossly normal bilaterally, external ears normal, Normal external nose present and moist oral mucous membranes HEAD & SCALP: normocephalic and atraumatic NOSE: Normal external nose present EXTERNAL EAR: Yes external ears normal Neck/C-Spine: COMMON NORMALS: full ROM, no lymphadenopathy, supple, no meningeal signs, no JVD and Thyroid normal THYROID: Thyroid normal Chest: COMMONS NORMALS: normal inspection of the chest and normal palpation of entire chest wall Resp: COMMON NORMALS: normal respiratory effort, No retractions, No use of accessory muscles and clear to auscultation bilaterally AUSCULTATION: clear to auscultation bilaterally Cardio: COMMON NORMALS: no JVD, regular rate, regular rhythm, S1 normal heart sound present, S2 normal heart sound present, No gallops present (Cardio), No clicks present (Cardio), No murmurs present (Cardio) and No rub (Cardio) R ATE: regular rate RHYTHM: regular rhythm HEART SOUNDS: S1 normal heart sound present and S2 normal heart sound present GI: COMMON NORMALS: Normal to inspection, nondistended, normoactive bowel sounds present, Soft to palpation, non-tender, No hepatosplenomegaly present and no masses PALPATION: Yes Soft to palpation and Yes No hepatosplenomegaly present Neuro: COMMON NORMALS: patient oriented x3 SENSORIUM/ORIENTATION: Yes alert MENINGEAL SIGNS: Yes no meningeal signs Course 2 Vital Signs: Vital signs: Vital Signs Temperature 98.3 F 04/25/24 18:24 Pulse Rate 45 L 04/25/24 18:24 Respiratory Rate 18 04/25/24 19:16 Blood Pressure 159/94 04/25/24 18:24 Pulse Oximetry 100 04/25/24 18:24 Oxygen Delivery Me thod Room Air 04/25/24 18:24 MDM - Chest Pain Medical Decision Making Patient has standard cardiac workup included serial EKGs, serial troponins, lab work chest x-ray, patient also had elevated D-dimer so she had a CTA which showed no acute evidence of PE. Patient second EKG showed sinus bradycardia with an AV block Dr. Obrien was consulted, we faxed both EKGs to Dr. Obrien. Dr. Obrien said we should put her inpatient for further evaluation and testing. Admit to medicine. Dr. Rosenberg was consulted, we will get urinalysis, urine drug screen, TSH, echo and place in ICU. Differential Diagnosis Unlikely acute massive pulmonary embolism, acute respiratory failure, acute myocardial infarction, cardiac arrest or sudden cardiac Medical Records I reviewed the patient's medical records. Lab Data I reviewed the patient's lab results. 04/25/24 18:57 04/25/24 18:57 Radiology Impressions Chest X-Ray 04/25/24 18:22 IMPRESSION: 1. No acute cardiopulmonary abnormality. Chest CTA 04/25/24 18:59 IMPRESSION: 1. No evidence of PE or acute aortic abnormality. 2. Findings raising the question of peptic ulcer disease. 3.Dilation of the pulmonary trunk suggesting pulmonary arterial hypertension. Laboratory Results WBC 7.75 10^3/uL (3.29-11.43) 04/25/24 18:57 RBC 3.68 10^6/uL (3.85-5.65) L 04/25/24 18:57 Hgb 11.20 g/dL (11.27-16.99) L 04/25/24 18:57 Hct 33.8 % (36-47) L 04/25/24 18:57 MCV 91.8 fl (85-98) 04/25/24 18:57 MCH 30.4 pg (27-33) 04/25/24 18:57 MCHC 33.1 g/dL (30-55) 04/25/24 18:57 RDW 13.8 % (12.1-15.1) 04/25/24 18:57 Plt Count 295 10^3/cmm (157-399) 04/25/24 18:57 MPV 9.8 fL (7.4-10.4) 04/25/24 18:57 Neut % (Auto) 55.1 % 04/25/24 18:57 Lymph % (Auto) 32.1 % 04/25/24 18:57 [place] % (Auto) 5.9 % 04/25/24 18:57 Eos % (Auto) 5.9 % 04/25/24 18:57 Baso % (Auto) 0.5 % 04/25/24 18:57 Neut # (Auto) 4.26 10^3/uL (1.8-7.7) 04/25/24 18:57 Lymph # (Auto) 2.5 10^3/uL (0.8-4.8) 04/25/24 18:57 [place] # (Auto) 0.5 10^3/uL (0.2-0.9) 04/25/24 18:57 Eos # (Auto) 0.5 10^3/uL (0.0-0.8) 04/25/24 18:57 Baso # (Auto) 0.0 10^3/uL (0.0-0.1) 04/25/24 18:57 Nucleated RBC % (auto) 0 % 04/25/24 18:57 Nucleated RBCs # 0.0 /100WBC 04/25/24 18:57 D-Dimer 2.35 ug/mLFEU (0-0.59) H 04/25/24 18:57 Sodium 141 mmol/L (136-145) 04/25/24 18:57 Potassium 3.5 mmol/L (3.5-5.1) 04/25/24 18:57 Chloride 108 mmol/L (98-107) H 04/25/24 18:57 Carbon Dioxide 22 mmol/L (22-29) 04/25/24 18:57 Anion Gap 14.5 (5-19) 04/25/24 18:57 BUN 8 mg/dL (6-20) 04/25/24 18:57 Creatinine 0.7 mg/dL (0.5-0.9) 04/25/24 18:57 GFR Calculation 97.6 mL/min (90-130) 04/25/24 18:57 Glucose 87 mg/dL (65-115) 04/25/24 18:57 Calculated Osmolality 290 mOsm/kg (285-295) 04/25/24 18:57 Calcium 8.4 mg/dL (8.5-10.5) L 04/25/24 18:57 Total Bilirubin 0.3 mg/dL (0.15-1.2) 04/25/24 18:57 AST 19 U/L (0-32) 04/25/24 18:57 ALT 15 U/L (0-33) 04/25/24 18:57 Alkaline Phosphatase 129 U/L (35-105) H 04/25/24 18:57 Troponin T Baseline 8 ng/L (0-10) 04/25/24 18:57 Troponin T 120 Minute 6.00 ng/L (0-10) 04/25/24 20:49 Delta Troponin T -2.00 ABS# (0-10) L 04/25/24 20:49 Total Protein 6.6 g/dL (6.6-8.7) 04/25/24 18:57 Albumin 3.1 g/dL (3.5-5.2) L 04/25/24 18:57 Globulin 3.5 g/dL (1.3-4.6) 04/25/24 18:57 Lipase 14 U/L (13-60) 04/25/24 18:57 TSH 1.53 uIU/mL (0.27-4.20) 04/25/24 20:49 All radiology interpretation(s) finalized by discharge Discharge Plan Discharge Patient Disposition: Admitted As Inpatient Admit Provider: Madonna Rosenberg Clinical Impression: Symptomatic bradycardia, High-grade atrioventricular block, Hypertension, History of pulmonary embolism Condition: Stable Coding Level of Care Code ED Bunch Maker for Charu Escobar
--- NOTE | 2024-04-25 18:59 | CTR_ITS ---
PROCEDURE INFORMATION: Exam: CTA Chest With Contrast Exam date and time: 04/25/2024 7:08 PM Age: 29 years old Clinical indication: Angina and dyspnea; Chest wall pain; Additional info: Dyspnea chest pressure, HX of pe, missed 1 dose of lovenox TECHNIQUE: Imaging protocol: Computed tomographic angiography of the chest with contrast. Exam focused on the arteries. 3D rendering (Not supervised by radiologist): MIP and/or 3D reconstructed images were created by the technologist. Radiation optimization: All CT scans at this facility use at least one of these dose optimization techniques: automated exposure control; mA and/or kV adjustment per patient size (includes targeted exams where dose is matched to clinical indication); or iterative reconstruction. Contrast material: OMNI 350; Contrast volume: 85 ml; Contrast route: INTRAVENOUS (IV); COMPARISON: CR (CHEST, ) 04/25/2024 6:51 PM RADIATION DOSE METRICS: Total DLP (mGy-cm): 751.31 FINDINGS: Pulmonary arteries: No evidence of pulmonary thromboembolism. 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 Dilation of the pulmonary trunk to 3.5 cm suggesting pulmonary arterial hypertension. Aorta: No evidence of aneurysmal dilatation or dissection of the thoracic aorta. Thyroid: Grossly unremarkable. Lungs: No focal consolidation. No evidence of pneumonia. Pleural spaces: No evidence of pleural effusion. No pneumothorax. Heart: Borderline cardiomegaly. No pericardial effusion. Mediastinal space: No evidence of mediastinal mass, fluid collection or hematoma. Lymph nodes: No mediastinal or hilar adenopathy. Bones/joints: No evidence of acute fracture or aggressive osseous lesion. Soft tissues: No evidence of fluid collection or hematoma in the superficial soft tissues. Other findings: There is haziness in the region of the duodenual bulb with focal wall thinning anteriorly raising the question of peptic ulcer disease. CT/CT angio chest PE protcl [id number] IMPRESSION: 1. No evidence of PE or acute aortic abnormality. 2. Findings raising the question of peptic ulcer disease. 3.Dilation of the pulmonary trunk suggesting pulmonary arterial hypertension.
[2024-04-25 19:09] LABS: Basophils % 0.5 %; Eosinophils # 0.5 10^3/uL (0.0-0.8); Eosinophils % 5.9 %; Hematocrit 33.8 % (36-47); Lymphocytes # 2.5 10^3/uL (0.8-4.8); Lymphocytes % 32.1 %; Mean Corpuscular HGB Conc 33.1 g/dL (30-55); Mean Corpuscular Hemoglobin 30.4 pg (27-33); Mean Corpuscular Volume 91.8 fl (85-98); Mean Platelet Volume 9.8 fL (7.4-10.4); Monocytes # 0.5 10^3/uL (0.2-0.9); Monocytes % 5.9 %; Neutrophils # 4.26 10^3/uL (1.8-7.7); Neutrophils % 55.1 %; Nucleated Red Blood Cells % 0 %; Platelet Count 295 10^3/cmm (157-399); Red Blood Count 3.68 10^6/uL (3.85-5.65); Red Cell Distribution Width 13.8 % (12.1-15.1); White Blood Count 7.75 10^3/uL (3.29-11.43)
[2024-04-25] MEDS: ondansetron 2 mg/ML SDV 2 mL 4 MG IVP (19:16)
[2024-04-25] MEDS: morphine 4 mg/mL SDV 1 mL IVP (19:16)
[2024-04-25] MEDS: iohexol 350 mg/mL 500 mL Btl (per mL) IV (19:19)
--- NOTE | 2024-04-25 19:26 | PC.NURSE ---
Dr Plata notified of last vitals prior to med administration; no further orders received.
[2024-04-25 19:32] LABS: Troponin(5th) Baseline 8 ng/L (0-10)
[2024-04-25 19:34] LABS: D Dimer 2.35 ug/mLFEU (0-0.59)
[2024-04-25 19:35] LABS: Alanine Aminotransferase 15 U/L (0-33); Albumin Level 3.1 g/dL (3.5-5.2); Alkaline Phosphatase 129 U/L (35-105); Anion Gap 14.5 (5-19); Aspartate Amino Transferase 19 U/L (0-32); Blood Urea Nitrogen 8 mg/dL (6-20); Calcium 8.4 mg/dL (8.5-10.5); Carbon Dioxide 22 mmol/L (22-29); Chloride 108 mmol/L (98-107); Globulin 3.5 g/dL (1.3-4.6); Glomerular Filtration Rate 97.6 mL/min (90-130); Glucose 87 mg/dL (65-115); Lipase 14 U/L (13-60); Osmolality Calculated 290 mOsm/kg (285-295); Potassium 3.5 mmol/L (3.5-5.1); Sodium 141 mmol/L (136-145); Total Bilirubin 0.3 mg/dL (0.15-1.2); Total Protein 6.6 g/dL (6.6-8.7)
--- NOTE | 2024-04-25 21:38 | ECG_ITS ---
[facility] Test Date: 2024-04-25 Pat Name: Gabby Gomez Department: Room: Gender: Female Intelligence Analyst: : 1995 Requested By: Robb Fregoso Order Number: [id number] Josselyn MD: Crystal Obrien M.D. Measurements Intervals [place] Rate: 41 P: 0 MD: 0 QRS: 33 QRSD: 90 T: 12 QT: 476 QTc: 396 Interpretive Statements Sinus bradycardia with junctional escape beats CRITICAL TEST RESULT Compared to ECG 04/25/2024 18:23:00 Junctional escape beats are new Electronically Signed On 04-26-2024 23:53:22 CDT by Crystal Obrien M.D. [id number]
--- NOTE | 2024-04-25 22:26 | USCV_ITS ---
Gabby Gomez Age: 29 Gender: F : 1995 Exam Date: 04/25/2024 23:03 Ordering Phys: Michael Plata DO Technologist: IVETH Exam Location: [facility] [place] Indication: bradycardia 6 days post- by . High- grade A-V block. HTN. Morbid obesity. BP: 159 / 94 HR: 44 Rhythm: Sinus bradycardia Technical Quality: Adequate MEASUREMENTS (Male / Female) Normal Values 2D ECHO LV Diastolic Diameter PLAX 5.0 cm 4.2 - 5.9 / 3.9 - 5.3 cm IVS Diastolic Thickness 1.5 cm 0.6 - 1.0 / 0.6 - 0.9 cm IVS Systolic Thickness 1.6 cm LVPW Diastolic Thickness 1.4 cm 0.6 - 1.0 / 0.6 - 0.9 cm LVPW Systolic Thickness 2.1 cm LVOT Diameter 1.9 cm LV Ejection Fraction 2D Teich 60.8 % LV Ejection Fraction MOD 2C 49.1 % LV Ejection Fraction 2C AL 51.6 % LA Diameter 4.5 cm Aorta at Sinotubular Diameter 2.9 cm IVC Diameter 1.9 cm M-MODE LA Ao Ratio MM 1.2 AV Cusp Separation MM 1.6 cm DOPPLER AV Peak Velocity 132.0 cm/s LVOT Peak Velocity 122.0 cm/s AV Area Cont Eq vti 2.5 cm squared AV Area Cont Eq pk 2.5 cm squared MV Peak Velocity 107.0 cm/s MV Area PHT 4.7 cm squared Mitral E to A Ratio 2.5 TV Peak Velocity 268.3 cm/s TR Peak Velocity 274.0 cm/s TR Peak Gradient 30.0 mmHg TV Peak E Velocity 75.0 cm/s Right Atrial Pressure 3.0 mmHg Pulmonary Artery Systolic Pressu 33.0 mmHg PV Peak Velocity 107.0 cm/s FINDINGS Left Ventricle Normal left ventricular size and systolic function, EF 61%. No regional wall motion abnormalities. Right Ventricle The right ventricle is normal in size and function. Right Atrium The right atrium is normal in size. Left Atrium The left atrium is normal in size. Mitral Valve Mild-moderate mitral valve regurgitation. Aortic Valve No gross abnormalities noted Tricuspid Valve Trace to mild tricuspid valve regurgitation. Pulmonic Valve Mild pulmonary valve regurgitation. Pericardium Normal pericardium without effusion. Aorta Normal aortic annulus size. IVC Normal inferior vena cava. CONCLUSIONS Normal left ventricular size and systolic function, EF 61%. No regional wall motion abnormalities. Mild-moderate mitral valve regurgitation. Trace to mild tricuspid valve regurgitation. Mild pulmonary valve regurgitation. Estimated pulmonary artery peak systolic pressure 33 mmHg There is no pericardial effusion. There are no intracardiac masses. No similar previous studies are available for comparison Dr Crystal Obrien MD FACC (Electronically Signed) Final Date: 26 April 2024 10:04 S
[2024-04-25 22:45] LABS: Thyroid Stimulating Hormone 1.53 uIU/mL (0.27-4.20)
[2024-04-26] VITALS (48 sets, daily range): BP systolic 117–191; BP diastolic 64–119; PULSE 38–70; RESP 11–29; TEMP 36.6–36.9; O2SAT 93–100; BMI 54.0
--- NOTE | 2024-04-26 00:08 | ECG_ITS ---
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 Measurements Intervals [place] Rate: 40 P: 5 [place]: 159 QRS: 41 QRSD: 96 T: 24 QT: 481 QTc: 393 Interpretive Statements SINUS BRADYCARDIA CRITICAL TEST RESULT Compared to ECG 04/25/2024 21:38:22 Sinus rhythm no longer present Electronically Signed On 04-26-2024 23:54:31 CDT by Crystal Obrien M.D. [email or web address]
[2024-04-26 01:21] LABS: Troponin 5 6HR 6.76 ng/L (0-10)
--- NOTE | 2024-04-26 01:23 | P.HP_ITS ---
Providers/Chief Complaint 2 Admitting Physician: Madonna Rosenberg MD Primary Care Provider: Vashti Hodge DO Chief Complaint: CP,SOB History of Present Illness Gabby Gomez is a 29 year old female who is 6 days after having a at [facility] in [place] last week. She was diagnosed with a PE during the course of her and has been on Lovenox ever since. 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 Per patient she has never been diagnosed with any known hypercoagulable state. She presents to the emergency room today with chief complaints of chest pain. It is located in the center of the chest. Radiating into the left side of her jaw. Associated with subjective dyspnea, made worse with respiration. Patient states that the pain is located mostly in her ribs. CTA of the chest ruled out a PE. She was detected to have sinus bradycardia has baseline rhythm with intermittent high-grade AV block noted on telemetry in the emergency room. She denies any past history of bradycardia. Reports that heart rate has been ranging mostly in the 90s. Denies any recent history of mastitis, denies any difficulty with breast- feeding.no recent fever chills nausea vomiting. States that vaginal discharge has been reducing since her . She has not noticed any abnormal discharge or odor. She denies any dizziness. Review of Systems 2 General: Reports: 10 or more systems reviewed and unremarkable except in HPI and below Const: Denies: fever(s), chills or body aches Eyes: Denies: change in vision, blurry vision or photophobia ENMT: Reports: hoarseness; Denies: throat pain, enlarged tonsils, odynophagia or nasal congestion Card: Denies: chest pain, palpitations, irregular heart rhythm, edema, swelling of feet/ankles, lightheadedness, pre-syncope, dyspnea on exertion or orthopnea Resp: Denies: dyspnea, productive cough, non-productive cough, wheezing, stridor, pain on inspiration, change in phlegm color, hemoptysis or chest congestion GI: Denies: abdominal pain, nausea, vomiting, hematemesis, coffee ground emesis, dysphagia, heartburn, diarrhea, constipation, GI cramping, change in stool character, hematochezia or melena : Denies: flank pain, difficulty voiding, dysuria, urinary frequency, urinary urgency, urinary hesitancy or hematuria Musc: Denies: neck pain, back pain, extremity pain, joint swelling, joint warmth or deformity Neuro: Denies: headache(s), numbness in extremities, weakness in extremities, sensory changes, difficulty walking, frequent falls, dizziness, vertigo, behavioral changes, Slurred speech present or seizure-like activity Psych: Denies: anxiety, depression, suicidal ideation or homicidal ideation Endo: Denies: polyuria, polydipsia, tired all the time, cold intolerance or hot flashes Gabriel/Lymph: Denies: easy bruising or easy bleeding Medications/Allergies Home Medications Medication Instructions Recorded Confirmed Last Taken Type PNV 153-FA 400 mcg-om3 35 mg-dha tab PO 09/22/23 03/10/24 Unknown History 25 mg-epa 5 mg-fish oil chew tablet ( Gummies) enoxaparin 40 mg/0.4 mL 40 mg (0.4 mL) SUBCUT DAILY #4 mL 11/19/23 03/10/24 Unknown Rx subcutaneous syringe (Lovenox) sertraline 100 mg tablet 100 mg PO DAILY #30 tabs 02/09/24 03/10/24 Unknown Rx Allergies Allergy/AdvReac Type Severity Reaction Status Date / Time No Known Allergies Allergy Verified 04/25/24 18:34 PFSH Acute 2 PFSH: Medical History Major depressive disorder, recurrent, moderate Major depressive disorder, recurrent episode, in partial remission Psychiatric care No pertinent past medical history Denies diabetes, asthma, hypertension, seizures PCP: Dr. Hodge Anxiety and depression Reports PTSD, anxiety, and depression. Follows up with behavioral health care--sees Dr. Mena and Мария Gabriel for therapy. Treated with prazosin, Zoloft, and trazodone. History of deep venous thrombosis or pulmonary embolus (~2013) Developed PE in 2013 after being hospitalized for approximately 1 week after having laparoscopic cholecystectomy with ERCP while . Hospitalized in [place]. Was on anticoagulants rest of and for a few months afterwards. She also ended up with blood clots in her arms after her 01/2021 delivery, and was started on eliquis. Surgical History Hx of section 1). 02/20/2021---Primary lowest transverse delivery via Pfannenstiel incision. Surgery done at 35 weeks for IUGR oligohydramnios and a category 2 tracing operative reports were requested and obtained---> double layer closure, no extensions 2). 05/07/2022 Repeat Section at [facility] Hx laparoscopic cholecystectomy (~2013) 2014: Laparoscopic cholecystectomy with ERCP 1 to 2 days later during . Was hospitalized for approximately 1 week. Performed in [place], [place]. Family History Family/Other Diabetes Maternal aunt Hypertension Maternal aunt Family history of thyroid problem Maternal aunt Mother Family history of thyroid problem Grandmother Family history of thyroid problem Paternal grandmother Maternal grandmother Denies family history of Colon cancer Ovarian cancer Heart disease Hyperlipidemia Breast cancer Uterine cancer Stroke Social History Smoking and tobacco/nicotine status: former use of tobacco/nicotine Substance/Drug Use: never Vitals/I&O/Wt Last Vital Signs Temp 98.3 F 04/25/24 18:24 Pulse 45 L 04/25/24 23:31 Resp 24 H 04/25/24 23:31 BP 143/83 04/25/24 23:31 Pulse Ox 95 04/25/24 23:31 O2 Del Method Room Air 04/25/24 20:04 Weight last 48 hrs Weight 166.922 kg Physical Exam 2 Narrative: General: No acute distress, AO x3 HEENT: PERRLA, pupils bilaterally equal and reactive, pallors not present Chest: Normal vesicular breath sounds, no added sounds, equal good air entry bilaterally. No breast tenderness or localized collection/abscess CVS: S1-S2 regular, no murmurs, no tachycardia, no gallops, no rubs Abdomen: Soft, nontender, no organomegaly, bowel sounds present Neuro: No focal deficits, no facial deformity, AO x3, power 5/5 in all limbs Extremities: No edema clubbing or cyanosis Data 04/25/24 18:57 04/25/24 18:57 Other Labs: Radiology Impressions Chest X-Ray 04/25/24 18:22 IMPRESSION: 1. No acute cardiopulmonary abnormality. Chest CTA 04/25/24 18:59 IMPRESSION: 1. No evidence of PE or acute aortic abnormality. 2. Findings raising the question of peptic ulcer disease. 3.Dilation of the pulmonary trunk suggesting pulmonary arterial hypertension. Laboratory Results WBC 7.75 10^3/uL (3.29-11.43) 04/25/24 18:57 RBC 3.68 10^6/uL (3.85-5.65) L 04/25/24 18:57 Hgb 11.20 g/dL (11.27-16.99) L 04/25/24 18:57 Hct 33.8 % (36-47) L 04/25/24 18:57 MCV 91.8 fl (85-98) 04/25/24 18:57 MCH 30.4 pg (27-33) 04/25/24 18:57 MCHC 33.1 g/dL (30-55) 04/25/24 18:57 RDW 13.8 % (12.1-15.1) 04/25/24 18:57 Plt Count 295 10^3/cmm (157-399) 04/25/24 18:57 MPV 9.8 fL (7.4-10.4) 04/25/24 18:57 Neut % (Auto) 55.1 % 04/25/24 18:57 Lymph % (Auto) 32.1 % 04/25/24 18:57 [place] % (Auto) 5.9 % 04/25/24 18:57 Eos % (Auto) 5.9 % 04/25/24 18:57 Baso % (Auto) 0.5 % 04/25/24 18:57 Neut # (Auto) 4.26 10^3/uL (1.8-7.7) 04/25/24 18:57 Lymph # (Auto) 2.5 10^3/uL (0.8-4.8) 04/25/24 18:57 [place] # (Auto) 0.5 10^3/uL (0.2-0.9) 04/25/24 18:57 Eos # (Auto) 0.5 10^3/uL (0.0-0.8) 04/25/24 18:57 Baso # (Auto) 0.0 10^3/uL (0.0-0.1) 04/25/24 18:57 Nucleated RBC % (auto) 0 % 04/25/24 18:57 Nucleated RBCs # 0.0 /100WBC 04/25/24 18:57 D-Dimer 2.35 ug/mLFEU (0-0.59) H 04/25/24 18:57 Sodium 141 mmol/L (136-145) 04/25/24 18:57 Potassium 3.5 mmol/L (3.5-5.1) 04/25/24 18:57 Chloride 108 mmol/L (98-107) H 04/25/24 18:57 Carbon Dioxide 22 mmol/L (22-29) 04/25/24 18:57 Anion Gap 14.5 (5-19) 04/25/24 18:57 BUN 8 mg/dL (6-20) 04/25/24 18:57 Creatinine 0.7 mg/dL (0.5-0.9) 04/25/24 18:57 GFR Calculation 97.6 mL/min (90-130) 04/25/24 18:57 Glucose 87 mg/dL (65-115) 04/25/24 18:57 Calculated Osmolality 290 mOsm/kg (285-295) 04/25/24 18:57 Calcium 8.4 mg/dL (8.5-10.5) L 04/25/24 18:57 Total Bilirubin 0.3 mg/dL (0.15-1.2) 04/25/24 18:57 AST 19 U/L (0-32) 04/25/24 18:57 ALT 15 U/L (0-33) 04/25/24 18:57 Alkaline Phosphatase 129 U/L (35-105) H 04/25/24 18:57 Troponin T Baseline 8 ng/L (0-10) 04/25/24 18:57 Troponin T 120 Minute 6.00 ng/L (0-10) 04/25/24 20:49 Delta Troponin T -2.00 ABS# (0-10) L 04/25/24 20:49 Troponin T Hi Sens 6Hr 6.76 ng/L (0-10) 04/26/24 00:49 Troponin T Hi Sens 6Hr Delta -1.24 ng/L (0-12) L 04/26/24 00:49 Total Protein 6.6 g/dL (6.6-8.7) 04/25/24 18:57 Albumin 3.1 g/dL (3.5-5.2) L 04/25/24 18:57 Globulin 3.5 g/dL (1.3-4.6) 04/25/24 18:57 Lipase 14 U/L (13-60) 04/25/24 18:57 TSH 1.53 uIU/mL (0.27-4.20) 04/25/24 20:49 Other data: Ordering Provider/Ordering MD: Robb Fregoso MD Date of Service: 04/25/24 Procedure(s): ECG 12 lead EKG Accession Number(s): [id number] Report Number: [id number] [facility] Test Date: 2024-04-25 Pat Name: Gabby Gomez Department: Room: 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1995 Requested By: Robb Fregoso Order Number: [id number] Reading MD: Measurements Intervals [place] Rate: 48 P: 22 [place]: 183 QRS: 27 QRSD: 94 T: 10 QT: 440 QTc: 393 Interpretive Statements SINUS BRADYCARDIA No previous ECG available for comparison A&P Assessment and plan (1) High-grade atrioventricular block: (2) Symptomatic bradycardia: (3) History of pulmonary embolism: (4) Anxiety and depression: Plan 29-year-old lady with a past medical history of PE during multiple pregnancies, currently 6 days after having had a , discharged on Thursday (today is Thursday) reportedly heart rate ranging in the 90s post discharge. Currently presenting with chest pain which started yesterday. Pain has been intermittent, associated with subjective dyspnea. Currently saturating 95% on room air. Diagnosed to have sinus bradycardia with heart rate ranging in the 40s, intermittently also noted to have high degree AV block on telemetry leads in the emergency room. Admit to ICU Continuous cardiac monitoring. Baseline troponin at 8, 2-hour at 6, pending 6-hour trend. Potassium within range at 3.5. Check magnesium. TSH normal at 1.53 Normal QTc interval, patient noted to be on SSRIs as outpatient which will be held for now As needed morphine for pain management. Counseled patient to avoid breast- feeding while getting morphine for chest pain. History of PE for which patient typically takes Lovenox 180 mg twice daily at home. Will transition this to heparin drip while monitoring her heart block in the hospital in case she needs any intervention such as placement of temporary pacer's etc. CTA currently negative for PE, aortic dissection Possibility of peripartum cardiomyopathy, stat echocardiogram has been ordered and taken in the ER, pending interpretation. Cardiology consult At the time of this assessment patient is alert awake oriented x 3, heart rate is 45 bpm sinus rhythm, blood pressure 127/87 mmHg. No indication of urgent pacing at this time. Low threshold to start dopamine and using atropine with HR <35 &/or development of symptoms DVT prophylaxis: Currently on heparin anticoagulation Full code Incidental note on CTA for peptic ulcer disease, start Protonix 40 mg p.o. twice daily Attestations 2 Medical Necessity Statement*: Greater than 2 midnight stay is anticipated Critical Care Time: The high probability of a clinically significant, sudden or life threatening deterioration of the patient's [cardiac, respiratory] system(s) required my full and direct attention, intervention and personal management. The critical care time is as shown. This time is in addition to time spent performing any reported procedures but includes the following: [x] Data and vital sign review and interpretation [x] Patient assessment, examination and intervention [x] Documentation [x] Medication orders and management Critical Care Time (min): 45 Coding Level of Care Code Critical Care >/= 30 minutes Diagnoses High-grade atrioventricular block I44.39 Symptomatic bradycardia R00.1 History of pulmonary embolism Z86.711 Anxiety and depression F41.9; F32.9
[2024-04-26 01:38] LABS: Troponin 5 6HR Delta -1.24 ng/L (0-12)
[2024-04-26 02:03] LABS: NT Pro B Type Natriuretic Pept 761 pg/mL (0-125)
[2024-04-26] MEDS: heparin 5,000 unit/mL INJ 1 mL IV (02:41)
[2024-04-26] MEDS: heparin drip 25,000 UNIT/500 ML PREMIX 46.74 UNIT IV (02:41)
--- NOTE | 2024-04-26 07:31 | P.CONIM_ITS ---
Providers/Reason For Consult 2 Consulting Physician/Specialty*: Tiara Obrien MD/cardiology Reason for Consult*: Bradycardia Requesting Physician: Dr. Walsh Attending Physician: Jose Rick MD Primary Care Provider: Vashti Hodge DO History of Present Illness History of Present Illness Gabby Gomez is a 29 year old female with a history of DVT/pulmonary embolism, status post a week ago, is presenting with complaints of shortness of breath, chest tightness/heaviness and pain rating to the both sides of the neck. This patient apparently had her third at the [facility] a week ago. She was placed on subcu Lovenox following the surgery for prevention of thromboembolism. Apparently this patient had episodes of DVT x 2 in the right upper arm and 1 episode of pulmonary embolism, with the previous pregnancies. So she usually have DVT prophylaxis with the Lovenox during and therapeutic dose of Lovenox following the for 6 weeks. She has been doing okay up until yesterday when she started having this tightness/heaviness in the chest associated with the shortness of breath and occasionally pain radiated to both sides of the neck. She was found to have heart rate in the 40s. Whenever the heart rate goes into the low 40s or below 40, she has these episodes of pain on the sides of the neck. She has no fever or chills. No cough. No orthopnea PND. She did not have any complications with the most recent . No preeclampsia. She has no history for any cardiac illness. No history for cardiac arrhythmia. Never had a similar problems during the previous pregnancies. She is adopted. She has 6 biological siblings. None of them have any heart problems that she knows of. Her mother also seems to have no heart issues. She denies any smoking abuse or alcohol abuse. Review of Systems 2 Narrative: CONSTITUTIONAL: No fever or chills. EYES: No blurring of vision or other visual disturbances lately. ENT: No hoarseness of voice, auditory disturbances or sore throat. CARDIOVASCULAR: As mentioned above. RESPIRATORY: No significant cough. GASTROINTESTINAL: No hematemesis or melena. GENITOURINARY: Status post recent INTEGUMENTARY: No skin rashes or history of skin cancer. NEURO: No transient ischemic attacks or amaurosis. PSYCHIATRIC: No history of psychosis or major depression. HEMATOLOGIC: No bleeding disorders or significant anemia. ENDOCRINE: No history of polyuria or polydipsia. MUSCULOSKELETAL: No recent joint pain or swelling. ALLERGY/IMMUNOLOGY: As mentioned above. Medications/Allergies Home Medications Medication Instructions Recorded Confirmed Last Taken Type PNV 153-FA 400 mcg-om3 35 mg-dha 1 tab PO 1XD 09/22/23 04/26/24 1 Day Ago History 25 mg-epa 5 mg-fish oil chew ~04/25/24 tablet ( Gummies) enoxaparin 40 mg/0.4 mL 180 mg SUBCUT BID 04/26/24 04/26/24 1 Day Ago History subcutaneous syringe (Lovenox) ~04/25/24 sertraline 100 mg tablet (Zoloft) 100 mg PO DAILY 04/26/24 04/26/24 1 Day Ago History ~04/25/24 Allergies Allergy/AdvReac Type Severity Reaction Status Date / Time No Known Allergies Allergy Verified 04/25/24 18:34 Current Medications Generic Name Dose Route Start Last Admin Trade Name Freq PRN Reason Stop Dose Admin Heparin Sodium (Porcine) 0 unit 04/26/24 01:24 04/26/24 02:41 Heparin 5,000 Unit/Ml Inj 1 Ml IV 7,000 unit PRN PRN Administration Heparin weight-base protocol Protocol Heparin Sodium/Sodium Chloride 25,000 unit in 500 mls @ 0 mls/hr 04/26/24 01:30 04/26/24 02:41 Heparin Drip IV 14 unit/kg/hr .Q0M DEVENDRA 46.74 mls/hr Administration Protocol Per Protocol PFSH Acute 2 PFSH: Medical History Major depressive disorder, recurrent, moderate Major depressive disorder, recurrent episode, in partial remission Psychiatric care No pertinent past medical history Denies diabetes, asthma, hypertension, seizures PCP: Dr. Hodge Anxiety and depression Reports PTSD, anxiety, and depression. Follows up with behavioral health care--sees Dr. Mena and Мария Gabriel for therapy. Treated with prazosin, Zoloft, and trazodone. History of deep venous thrombosis or pulmonary embolus (~2013) Developed PE in 2013 after being hospitalized for approximately 1 week after having laparoscopic cholecystectomy with ERCP while . Hospitalized in [place]. Was on anticoagulants rest of and for a few months afterwards. She also ended up with blood clots in her arms after her 01/2021 delivery, and was started on eliquis. Surgical History Hx of section 1). 02/20/2021---Primary lowest transverse delivery via Pfannenstiel incision. Surgery done at 35 weeks for IUGR oligohydramnios and a category 2 tracing operative reports were requested and obtained---> double layer closure, no extensions 2). 05/07/2022 Repeat Section at [facility] Hx laparoscopic cholecystectomy (~2013) 2014: Laparoscopic cholecystectomy with ERCP 1 to 2 days later during . Was hospitalized for approximately 1 week. Performed in [place], [place]. Family History Family/Other Diabetes Maternal aunt Hypertension Maternal aunt Family history of thyroid problem Maternal aunt Mother Family history of thyroid problem Grandmother Family history of thyroid problem Paternal grandmother Maternal grandmother Denies family history of Colon cancer Ovarian cancer Heart disease Hyperlipidemia Breast cancer Uterine cancer Stroke Social History Smoking and tobacco/nicotine status: former use of tobacco/nicotine Substance/Drug Use: never Vitals/I&O/Wt Last Vital Signs Temp 98.5 F 04/26/24 00:30 Pulse 42 L 04/26/24 06:00 Resp 20 H 04/26/24 06:00 BP 122/65 04/26/24 03:00 Pulse Ox 93 04/26/24 06:00 O2 Del Method Room Air 04/26/24 03:03 Weight last 48 hrs Weight 207 lb 3.752 oz Weight 365 lb 14.4 oz Weight 368 lb Physical Exam 2 Narrative: GENERAL: The patient is alert and oriented times three. Not in any acute distress. Morbidly obese HEENT: No significant pallor, icterus or lymphadenopathy.Oral cavity: There are no mucous membrane lesions. NECK: Trachea appears to be central. No masses noted. No JVD or thyromegaly appreciated. RESPIRATORY: Chest is symmetrical. No intercostals muscle retraction or any accessory muscle activation. There is no chest wall tenderness. Breath sounds are heard bilaterally. No rales or rhonchi heard. No evidence of any consolidation. BREASTS: Deferred. HEART: The heart sounds are normal. No S3 or S4. No significant murmurs. No pericardial rub ABDOMEN: No vessel pulsations or distention. No tenderness. No organomegaly appreciated. Bowel sounds are normally heard. : Deferred. RECTAL: Deferred. LYMPHATIC: No lymphadenopathy noted in the neck. EXTREMITIES: No edema or cyanosis. No clubbing. MUSCULOSKELETAL: No acute joint deformities or swelling SKIN: There are no significant rashes or ecchymosis NEUROPSYCHIATRIC: The patient is alert and oriented x3. Appears to be in a good mood. No tremors or rigidity noted. Data 04/25/24 18:57 04/25/24 18:57 Other Labs: Laboratory Last Values WBC 7.75 10^3/uL (3.29-11.43) 04/25/24 18:57 RBC 3.68 10^6/uL (3.85-5.65) L 04/25/24 18:57 Hgb 11.20 g/dL (11.27-16.99) L 04/25/24 18:57 Hct 33.8 % (36-47) L 04/25/24 18:57 MCV 91.8 fl (85-98) 04/25/24 18:57 MCH 30.4 pg (27-33) 04/25/24 18:57 MCHC 33.1 g/dL (30-55) 04/25/24 18:57 RDW 13.8 % (12.1-15.1) 04/25/24 18:57 Plt Count 295 10^3/cmm (157-399) 04/25/24 18:57 MPV 9.8 fL (7.4-10.4) 04/25/24 18:57 Neut % (Auto) 55.1 % 04/25/24 18:57 Lymph % (Auto) 32.1 % 04/25/24 18:57 [place] % (Auto) 5.9 % 04/25/24 18:57 Eos % (Auto) 5.9 % 04/25/24 18:57 Baso % (Auto) 0.5 % 04/25/24 18:57 Neut # (Auto) 4.26 10^3/uL (1.8-7.7) 04/25/24 18:57 Lymph # (Auto) 2.5 10^3/uL (0.8-4.8) 04/25/24 18:57 [place] # (Auto) 0.5 10^3/uL (0.2-0.9) 04/25/24 18:57 Eos # (Auto) 0.5 10^3/uL (0.0-0.8) 04/25/24 18:57 Baso # (Auto) 0.0 10^3/uL (0.0-0.1) 04/25/24 18:57 Nucleated RBC % (auto) 0 % 04/25/24 18:57 Nucleated RBCs # 0.0 /100WBC 04/25/24 18:57 D-Dimer 2.35 ug/mLFEU (0-0.59) H 04/25/24 18:57 Sodium 141 mmol/L (136-145) 04/25/24 18:57 Potassium 3.5 mmol/L (3.5-5.1) 04/25/24 18:57 Chloride 108 mmol/L (98-107) H 04/25/24 18:57 Carbon Dioxide 22 mmol/L (22-29) 04/25/24 18:57 Anion Gap 14.5 (5-19) 04/25/24 18:57 BUN 8 mg/dL (6-20) 04/25/24 18:57 Creatinine 0.7 mg/dL (0.5-0.9) 04/25/24 18:57 GFR Calculation 97.6 mL/min (90-130) 04/25/24 18:57 Glucose 87 mg/dL (65-115) 04/25/24 18:57 Calculated Osmolality 290 mOsm/kg (285-295) 04/25/24 18:57 Calcium 8.4 mg/dL (8.5-10.5) L 04/25/24 18:57 Magnesium 2.0 mg/dL (1.7-2.3) 04/26/24 00:49 Total Bilirubin 0.3 mg/dL (0.15-1.2) 04/25/24 18:57 AST 19 U/L (0-32) 04/25/24 18:57 ALT 15 U/L (0-33) 04/25/24 18:57 Alkaline Phosphatase 129 U/L (35-105) H 04/25/24 18:57 Troponin T Baseline 8 ng/L (0-10) 04/25/24 18:57 Troponin T 120 Minute 6.00 ng/L (0-10) 04/25/24 20:49 Delta Troponin T -2.00 ABS# (0-10) L 04/25/24 20:49 Troponin T Hi Sens 6Hr 6.76 ng/L (0-10) 04/26/24 00:49 Troponin T Hi Sens 6Hr Delta -1.24 ng/L (0-12) L 04/26/24 00:49 NT-Pro-B Natriuret Pep 761 pg/mL (0-125) H 04/26/24 00:49 Total Protein 6.6 g/dL (6.6-8.7) 04/25/24 18:57 Albumin 3.1 g/dL (3.5-5.2) L 04/25/24 18:57 Globulin 3.5 g/dL (1.3-4.6) 04/25/24 18:57 Lipase 14 U/L (13-60) 04/25/24 18:57 TSH 1.53 uIU/mL (0.27-4.20) 04/25/24 20:49 A&P Assessment and plan (1) Symptomatic bradycardia: The etiology of the symptomatic bradycardia is not clear. The Zoloft can rarely cause bradycardia. However the patient has been on this medication for 3 years or so. No recent changes in the dose. Her thyroid profile is within normal limits. Most likely this patient may have some form of sinus carlie dysfunction causing the bradycardia. I will be reviewing her echocardiogram to rule out any other pathology. (2) History of deep venous thrombosis or pulmonary embolus: No recent recurrence. Has been on Lovenox. Now just switched to IV heparin. This may be continued for the time being. (3) Hypertension: Blood pressures are stage II now. We may start her on amlodipine 2.5 mg p.o. daily. Qualifiers: Hypertension type: unspecified Qualified Code(s): I10 - Essential (primary) hypertension (4) History of pulmonary embolism: She had a CTA and was found to have no evidence of PE. May continue on the IV heparin for the time being. (5) Premature ventricular contractions: I may start the patient on the magnesium tablet for the arrhythmia. Hold off on any other medications. Plan If the patient continues to have symptomatic bradycardia, may consider pacemaker implantation. We may watch her closely on the monitor today. Possibility of her having underlying coronary artery disease causing the symptoms is a consideration but my clinical suspicion may be low. Based on the clinical progress, further recommendations will be made. I will go ahead and review the echocardiogram Thank for the opportunity to evaluate this patient and make these recommendations Coding Level of Care Code 98693 Diagnoses Symptomatic bradycardia R00.1 History of deep venous thrombosis or pulmonary embolus Hypertension I10 Hypertension type: unspecified History of pulmonary embolism Z86.711 Premature ventricular contractions I49.3
--- NOTE | 2024-04-26 08:15 | ECG_ITS ---
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 Measurements Intervals [place] Rate: 40 P: 40 MI: 181 QRS: 21 QRSD: 92 T: 13 QT: 523 QTc: 428 Interpretive Statements SINUS BRADYCARDIA CRITICAL TEST RESULT Compared to ECG 04/26/2024 00:08:08 No significant changes Electronically Signed On 04-26-2024 23:56:36 CDT by Crystal Obrien M.D. [id number]
[2024-04-26] MEDS: pantoprazole DR 40 mg Tablet PO ×2 (08:21→17:52)
[2024-04-26 10:06] LABS: Partial Thromboplastin Time 162.7 SECONDS (23.9-36.7)
[2024-04-26 10:07] LABS: Add Urine Microscopic? YES; Bilirubin Urine Neg (Negative); Blood Urine 2+ (Negative); Glucose Urine UA Norm (Normal); Ketones Urine Negative (Negative); Leukocyte Esterase Urine 1+ (Negative); Nitrate Urine Negative (Negative); Protein Urine Neg (Negative); Specific Gravity, Urine 1.015 (1.005-1.030); Urine Appearance Slightly Cloudy (CLEAR); Urine Color Yellow (Yellow); Urobilinogen Urine Norm (Negative); pH Urine 6 (5-7)
[2024-04-26 10:18] LABS: Amphetamines Screen Urine Negative (Negative); Barbiturates Screen Urine Negative (Negative); Benzodiazepines Screen Urine Negative (Negative); Cocaine Screen Urine Negative (Negative); Opiate Screen Urine Positive (Negative); PCP Screen Urine Negative (Negative); THC Screen Urine Negative (Negative)
[2024-04-26 10:25] LABS: Add Urine Culture? Yes; Bacteria Urine TRACE /hpf; RBC Urine 0-4 /hpf (0-2)
[2024-04-26 13:09] LABS: Iron 38 ug/dL (37-145); Percent Saturation 10.9 % (20-50); Total Iron Binding Capacity 348 mcg/dl; Unsaturated Iron Binding 310 ug/dL (112-347)
[2024-04-26] MEDS: acetaminophen 325 mg Tablet 650 MG PO (13:21)
[2024-04-26 13:24] LABS: Vitamin B12 277 pg/mL (232-1245)
[2024-04-26 14:00] LABS: Partial Thromboplastin Time 58.9 SECONDS (23.9-36.7)
[2024-04-26 14:07] LABS: Estmated Average Glucose 94; Hemoglobin A1C 4.9 % (4.0-6.0)
--- NOTE | 2024-04-26 16:23 | P.PN_ITS ---
Subjective 2 Subjective: Appreciate H&P overnight. Today morning seen with family at bedside. Patient at rest with heart rate running in low 30s. On waking up and conversation increasing to mid 40s. Patient complaining of mild dizziness. Otherwise has been able to ambulate in the room. Denies any nausea, ting, headache. Blood pressure slightly elevated. Vitals/I&O/Wt Last Vital Signs Temp 98.0 F 04/26/24 08:00 Pulse 42 L 04/26/24 14:00 Resp 13 04/26/24 13:00 BP 191/92 04/26/24 13:00 Pulse Ox 97 04/26/24 13:00 O2 Del Method Room Air 04/26/24 07:59 04/26/24 04/26/24 04/26/24 06:59 14:59 22:59 Intake Total 828.992 / 828.992 240 / 1068.992 Balance 828.992 / 828.992 240 / 1068.992 Weight last 48 hrs Weight 94 kg Weight 165.969 kg Weight 166.922 kg Physical Exam 2 Narrative: General: No acute distress, AO x3 HEENT: PERRLA, pupils bilaterally equal and reactive, pallors not present Chest: Normal vesicular breath sounds, no added sounds, equal good air entry bilaterally. No breast tenderness or localized collection/abscess CVS: S1-S2 regular, no murmurs, bradycardia, no gallops, no rubs Abdomen: Soft, nontender, no organomegaly, bowel sounds present Neuro: No focal deficits, no facial deformity, AO x3, power 5/5 in all limbs Extremities: No edema clubbing or cyanosis Data 04/25/24 18:57 04/25/24 18:57 A&P Assessment and plan (1) High-grade atrioventricular block: (2) Symptomatic bradycardia: (3) History of pulmonary embolism: (4) Anxiety and depression: Plan 29-year-old lady with a past medical history of thromboembolism/DVT/PE during multiple pregnancies, currently 6 days after having had a , discharged on Thursday (today is Thursday) reportedly heart rate ranging in the 90s post discharge. Found to have bradycardia with high degree of AV block on admission. Echocardiogram done shows an EF of 60% with mild to moderate MR, trace TR with PASP of 33 mmHg. Electrolytes stable. Keep potassium around 4, magnesium around 2. Telemonitoring. Fall precautions. Unknown cause for now. Could be in setting of cardiomyopathy. Patient does just take high-dose SSRI but has been on for many years. For now hold off on Zoloft. Appreciate QTc. Appreciate cardiology recommendations. Plan to continue to monitor for now. If needed will plan for possible leadless pacemaker. If remains persistently in the 40s we will plan for dopamine drip. IV hydralazine 10 mg every 4 hours as needed for systolic blood pressure more than 170 mmHg. History of thromboembolism: Current pulmonary embolism. PE ruled out on CTA done in the ER. Continue with heparin drip for now. 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 Patient also gives history of 2 miscarriages in first trimester in past. Does not give history of any kind of workup for the same in the past. Check once NATALIYA panel, lupus anticoagulant. Full code Regular diet Protonix OPD prophylaxis Heparin drip will be sufficient for DVT prophylaxis as well. Attestations 2 Medical Necessity Statement*: Requires further hospitalization for management of significant bradycardia with high degree AV block in a young female who is 6 days , recurrent episodes of thromboembolism Diagnoses High-grade atrioventricular block I44.39 Symptomatic bradycardia R00.1 History of pulmonary embolism Z86.711 Anxiety and depression F41.9; F32.9
[2024-04-26] MEDS: magnesium lactate 84 mg Tablet PO (17:52)
[2024-04-26] MEDS: morphine 4 mg/mL SDV 1 mL 1 MG IVP (20:07)
[2024-04-26 20:46] LABS: Partial Thromboplastin Time 57.7 SECONDS (23.9-36.7)
[2024-04-26] MEDS: heparin drip 25,000 UNIT/500 ML PREMIX 23 UNIT IV (23:12)
[2024-04-27] VITALS (46 sets, daily range): BP systolic 116–198; BP diastolic 61–105; PULSE 40–60; RESP 0–26; TEMP 36.3–36.8; O2SAT 92–99
[2024-04-27 03:29] LABS: Basophils # 0.1 10^3/uL (0.0-0.1); Basophils % 0.7 %; Eosinophils # 0.4 10^3/uL (0.0-0.8); Eosinophils % 6.6 %; Hematocrit 31.7 % (36-47); Lymphocytes # 2.6 10^3/uL (0.8-4.8); Mean Corpuscular HGB Conc 32.8 g/dL (30-55); Mean Corpuscular Hemoglobin 30.4 pg (27-33); Mean Corpuscular Volume 92.7 fl (85-98); Mean Platelet Volume 9.7 fL (7.4-10.4); Monocytes # 0.5 10^3/uL (0.2-0.9); Monocytes % 6.7 %; Neutrophils # 3.19 10^3/uL (1.8-7.7); Neutrophils % 47.6 %; Nucleated Red Blood Cells % 0 %; Platelet Count 273 10^3/cmm (157-399); Red Blood Count 3.42 10^6/uL (3.85-5.65); Red Cell Distribution Width 13.6 % (12.1-15.1); White Blood Count 6.71 10^3/uL (3.29-11.43)
[2024-04-27 03:46] LABS: Partial Thromboplastin Time 62.2 SECONDS (23.9-36.7)
[2024-04-27 03:52] LABS: Alanine Aminotransferase 11 U/L (0-33); Albumin Level 2.8 g/dL (3.5-5.2); Alkaline Phosphatase 114 U/L (35-105); Anion Gap 13.6 (5-19); Aspartate Amino Transferase 11 U/L (0-32); Blood Urea Nitrogen 8 mg/dL (6-20); Calcium 8.2 mg/dL (8.5-10.5); Carbon Dioxide 24 mmol/L (22-29); Chloride 108 mmol/L (98-107); Globulin 3.2 g/dL (1.3-4.6); Glomerular Filtration Rate 97.6 mL/min (90-130); Glucose 92 mg/dL (65-115); Osmolality Calculated 292 mOsm/kg (285-295); Potassium 3.6 mmol/L (3.5-5.1); Sodium 142 mmol/L (136-145); Total Bilirubin 0.3 mg/dL (0.15-1.2)
[2024-04-27 04:00] LABS: Magnesium 1.9 mg/dL (1.7-2.3)
[2024-04-27] MEDS: pantoprazole DR 40 mg Tablet PO ×2 (08:38→17:11)
[2024-04-27] MEDS: magnesium lactate 84 mg Tablet PO ×2 (08:38→17:11)
[2024-04-27] MEDS: acetaminophen 325 mg Tablet 650 MG PO ×3 (08:39→19:59)
[2024-04-27] MEDS: hyDRALAzine 20 mg/mL INJ 1 mL 10 MG IVP ×2 (08:43→20:08)
--- NOTE | 2024-04-27 09:03 | PM.PN ---
Subjective Subjective: This patient had accelerated hypertension this morning. She was given p.o. hydralazine. The blood pressure dropped to normal at this time. Her heart rate seems to be in the 50s and low 60s. She has no more chest tightness or neck pain this morning. Medications: Medication Review Details: Current Medications Acetaminophen (Acetaminophen 325 Mg Tablet) 650 mg PO Q6H PRN PRN Reason: Mild/Mod Pain Or Temp >/= 101 Last Admin: 04/27/24 08:39 Dose: 650 mg Heparin Sodium (Porcine) (Heparin 5,000 Unit/Ml Inj 1 Ml) 0 unit IV PRN PRN; Protocol PRN Reason: Heparin weight-base protocol Last Admin: 04/26/24 02:41 Dose: 7,000 unit Hydralazine HCl (Hydralazine 20 Mg/Ml Inj 1 Ml) 10 mg IVP Q4H PRN PRN Reason: SBP More than 170 mmhg Last Admin: 04/27/24 08:43 Dose: 10 mg Heparin Sodium/Sodium Chloride (Heparin Drip) 25,000 unit in 500 mls @ 0 mls/hr IV .Q0M [facility]; Protocol Last Admin: 04/26/24 23:12 Dose: 6.89 unit/kg/hr, 23 mls/hr Magnesium Lactate (Magnesium Lactate 84 Mg Tablet) 84 mg PO BID [facility] Last Admin: 04/27/24 08:38 Dose: 84 mg Morphine Sulfate (Morphine 4 Mg/Ml Sdv 1 Ml) 1 mg IVP Q4H PRN PRN Reason: SEVERE PAIN Last Admin: 04/26/24 20:07 Dose: 1 mg Naloxone HCl (Naloxone 0.4 Mg/Ml Sdv) 0.1 mg IVP Q2M PRN PRN Reason: OPIATERV Ondansetron HCl (Ondansetron 2 Mg/Ml Sdv 2 Ml) 4 mg IVP Q8H PRN PRN Reason: vomiting, or N/V if npo Pantoprazole Sodium (Pantoprazole Dr 40 Mg Tablet) 40 mg PO BID [facility] Last Admin: 04/27/24 08:38 Dose: 40 mg Vitals/I&O/Wt Last Vital Signs Temp 97.4 F L 04/27/24 07:25 Pulse 42 L 04/27/24 08:30 Resp 16 04/27/24 08:30 BP 182/99 04/27/24 08:30 Pulse Ox 98 04/27/24 08:30 O2 Del Method Room Air 04/26/24 23:30 04/26/24 04/27/24 04/27/24 22:59 06:59 14:59 Intake Total 751.008 / 1580.000 200 / 1780.000 240 / 240 Balance 751.008 / 1580.000 200 / 1780.000 240 / 240 Weight last 48 hrs Weight 363 lb 11.2 oz Weight 207 lb 3.752 oz Weight 365 lb 14.4 oz Weight 368 lb Physical Exam Narrative: GENERAL: The patient is alert and oriented times three. Not in any acute distress. Morbidly obese HEENT: No significant pallor, icterus or lymphadenopathy.Oral cavity: There are no mucous membrane lesions. NECK: Trachea appears to be central. No masses noted. No JVD or thyromegaly appreciated. RESPIRATORY: Chest is symmetrical. No intercostals muscle retraction or any accessory muscle activation. There is no chest wall tenderness. Breath sounds are heard bilaterally. No rales or rhonchi heard. No evidence of any consolidation. BREASTS: Deferred. HEART: The heart sounds are normal. No S3 or S4. No significant murmurs. No pericardial rub ABDOMEN: No vessel pulsations or distention. No tenderness. No organomegaly appreciated. Bowel sounds are normally heard. : Deferred. RECTAL: Deferred. LYMPHATIC: No lymphadenopathy noted in the neck. EXTREMITIES: No edema or cyanosis. No clubbing. MUSCULOSKELETAL: No acute joint deformities or swelling SKIN: There are no significant rashes or ecchymosis NEUROPSYCHIATRIC: The patient is alert and oriented x3. Appears to be in a good mood. No tremors or rigidity noted. Data 04/27/24 03:20 04/27/24 03:20 Other Labs: Laboratory Last Values WBC 6.71 10^3/uL (3.29-11.43) 04/27/24 03:20 RBC 3.42 10^6/uL (3.85-5.65) L 04/27/24 03:20 Hgb 10.40 g/dL (11.27-16.99) L 04/27/24 03:20 Hct 31.7 % (36-47) L 04/27/24 03:20 MCV 92.7 fl (85-98) 04/27/24 03:20 MCH 30.4 pg (27-33) 04/27/24 03:20 MCHC 32.8 g/dL (30-55) 04/27/24 03:20 RDW 13.6 % (12.1-15.1) 04/27/24 03:20 Plt Count 273 10^3/cmm (157-399) 04/27/24 03:20 MPV 9.7 fL (7.4-10.4) 04/27/24 03:20 Neut % (Auto) 47.6 % 04/27/24 03:20 Lymph % (Auto) 38.0 % 04/27/24 03:20 Sampson % (Auto) 6.7 % 04/27/24 03:20 Eos % (Auto) 6.6 % 04/27/24 03:20 Baso % (Auto) 0.7 % 04/27/24 03:20 Neut # (Auto) 3.19 10^3/uL (1.8-7.7) 04/27/24 03:20 Lymph # (Auto) 2.6 10^3/uL (0.8-4.8) 04/27/24 03:20 Sampson # (Auto) 0.5 10^3/uL (0.2-0.9) 04/27/24 03:20 Eos # (Auto) 0.4 10^3/uL (0.0-0.8) 04/27/24 03:20 Baso # (Auto) 0.1 10^3/uL (0.0-0.1) 04/27/24 03:20 Nucleated RBC % (auto) 0 % 04/27/24 03:20 Nucleated RBCs # 0.0 /100WBC 04/27/24 03:20 APTT 62.2 SECONDS (23.9-36.7) H 04/27/24 03:20 D-Dimer 2.35 ug/mLFEU (0-0.59) H 04/25/24 18:57 Sodium 142 mmol/L (136-145) 04/27/24 03:20 Potassium 3.6 mmol/L (3.5-5.1) 04/27/24 03:20 Chloride 108 mmol/L (98-107) H 04/27/24 03:20 Carbon Dioxide 24 mmol/L (22-29) 04/27/24 03:20 Anion Gap 13.6 (5-19) 04/27/24 03:20 BUN 8 mg/dL (6-20) 04/27/24 03:20 Creatinine 0.7 mg/dL (0.5-0.9) 04/27/24 03:20 GFR Calculation 97.6 mL/min (90-130) 04/27/24 03:20 Glucose 92 mg/dL (65-115) 04/27/24 03:20 Estimat Average Glucose 94 04/26/24 13:35 Hemoglobin A1c 4.9 % (4.0-6.0) 04/26/24 13:35 Calculated Osmolality 292 mOsm/kg (285-295) 04/27/24 03:20 Calcium 8.2 mg/dL (8.5-10.5) L 04/27/24 03:20 Magnesium 1.9 mg/dL (1.7-2.3) 04/27/24 03:20 Iron 38 ug/dL (37-145) 04/26/24 00:49 TIBC 348 mcg/dl 04/26/24 00:49 % Saturation 10.9 % (20-50) L 04/26/24 00:49 Unsat Iron Binding 310 ug/dL (112-347) 04/26/24 00:49 Total Bilirubin 0.3 mg/dL (0.15-1.2) 04/27/24 03:20 AST 11 U/L (0-32) 04/27/24 03:20 ALT 11 U/L (0-33) 04/27/24 03:20 Alkaline Phosphatase 114 U/L (35-105) H 04/27/24 03:20 Troponin T Baseline 8 ng/L (0-10) 04/25/24 18:57 Troponin T 120 Minute 6.00 ng/L (0-10) 04/25/24 20:49 Delta Troponin T -2.00 ABS# (0-10) L 04/25/24 20:49 Troponin T Hi Sens 6Hr 6.76 ng/L (0-10) 04/26/24 00:49 Troponin T Hi Sens 6Hr Delta -1.24 ng/L (0-12) L 04/26/24 00:49 NT-Pro-B Natriuret Pep 761 pg/mL (0-125) H 04/26/24 00:49 Total Protein 6.0 g/dL (6.6-8.7) L 04/27/24 03:20 Albumin 2.8 g/dL (3.5-5.2) L 04/27/24 03:20 Globulin 3.2 g/dL (1.3-4.6) 04/27/24 03:20 Lipase 14 U/L (13-60) 04/25/24 18:57 Vitamin B12 277 pg/mL (232-1245) 04/26/24 00:49 TSH 1.53 uIU/mL (0.27-4.20) 04/25/24 20:49 Urine Color Yellow (Yellow) 04/26/24 09:37 Urine Appearance Slightly cloudy (CLEAR) 04/26/24 09:37 Urine pH 6 (5-7) 04/26/24 09:37 Ur Specific [place] 1.015 (1.005-1.030) 04/26/24 09:37 Urine Protein Neg (Negative) 04/26/24 09:37 Urine Glucose (UA) Norm (Normal) 04/26/24 09:37 Urine Ketones Negative (Negative) 04/26/24 09:37 Urine Blood 2+ (Negative) H 04/26/24 09:37 Urine Nitrate Negative (Negative) 04/26/24 09:37 Urine Bilirubin Neg (Negative) 04/26/24 09:37 Urine Urobilinogen Norm mg/dL (Negative) 04/26/24 09:37 Ur Leukocyte Esterase 1+ (Negative) H 04/26/24 09:37 Urine RBC 0-4 /hpf (0-2) H 04/26/24 09:37 Urine WBC 5-10 /hpf (0-5) H 04/26/24 09:37 Ur Squamous Epith Cells 5-10 /hpf (0-5) H 04/26/24 09:37 Ur Transition Epith Cell 5-10 /hpf 04/26/24 09:37 Amorphous Sediment Not Reportable 04/26/24 09:37 Urine Bacteria Trace /hpf (NONE) 04/26/24 09:37 Urine Mucus None /hpf 04/26/24 09:37 Urine Opiates Screen Positive ng/mL (Negative) H 04/26/24 09:37 Ur Barbiturates Screen Negative ng/mL (Negative) 04/26/24 09:37 Ur Phencyclidine Scrn Negative ng/mL (Negative) 04/26/24 09:37 Ur Amphetamines Screen Negative ng/mL (Negative) 04/26/24 09:37 U Benzodiazepines Scrn Negative ng/mL (Negative) 04/26/24 09:37 Urine Cocaine Screen Negative ng/mL (Negative) 04/26/24 09:37 U Marijuana (THC) Screen Negative ng/mL (Negative) 04/26/24 09:37 A&P Assessment and plan (1) Symptomatic bradycardia: The echocardiogram is unremarkable. Thyroid function is within normal limits. If the heart rate spontaneously improves, patient may not require any further intervention. She will be transferred to telemetry floor. At this time. If she remains stable with no recurrence of symptomatic bradycardia, may be discharged home tomorrow on an event monitor (2) History of deep venous thrombosis or pulmonary embolus: No recent recurrence. Has been on Lovenox. Now just switched to IV heparin. This may be continued for the time being. (3) Hypertension: I may start the patient on hydralazine 25 mg p.o. 3 times a day. Closely monitor the blood pressure. Qualifiers: Hypertension type: unspecified Qualified Code(s): I10 - Essential (primary) hypertension (4) History of pulmonary embolism: She had a CTA and was found to have no evidence of PE. May continue on the IV heparin for the time being. (5) Premature ventricular contractions: I may start the patient on the magnesium tablet for the arrhythmia. Hold off on any other medications. Plan If the patient remains stable with no recurrence of symptomatic bradycardia, may be discharged home tomorrow on an event monitor. May consider leadless pacemaker, if she has recurrence of symptomatic bradycardia Attestations Medical Necessity Statement*: Patient requires continued hospital stay for close monitoring and further management Coding Level of Care Code Acute Code for g Fwd Diagnoses Symptomatic bradycardia R00.1 History of deep venous thrombosis or pulmonary embolus Hypertension I10 Hypertension type: unspecified History of pulmonary embolism Z86.711 Premature ventricular contractions I49.3
--- NOTE | 2024-04-27 15:23 | P.PN_ITS ---
Subjective 2 Subjective: Seen and examined at bedside. Today morning blood pressures were elevated for which she required 10 units of IV hydralazine. Blood pressure is better after that. Heart rate mostly in the low 50s and sometimes in the low 40s now. Patient denies any symptoms. Vitals/I&O/Wt Last Vital Signs Temp 97.4 F L 04/27/24 07:25 Pulse 52 L 04/27/24 12:00 Resp 18 04/27/24 12:00 BP 119/61 04/27/24 12:00 Pulse Ox 97 04/27/24 12:00 O2 Del Method Room Air 04/26/24 23:30 04/27/24 04/27/24 04/27/24 06:59 14:59 22:59 Intake Total 200 / 1780.000 720 / 720 Balance 200 / 1780.000 720 / 720 Weight last 48 hrs Weight 164.972 kg Weight 94 kg Weight 165.969 kg Weight 166.922 kg Physical Exam 2 Narrative: General: No acute distress, AO x3 HEENT: PERRLA, pupils bilaterally equal and reactive, pallors not present Chest: Normal vesicular breath sounds, no added sounds, equal good air entry bilaterally. No breast tenderness or localized collection/abscess CVS: S1-S2 regular, no murmurs, bradycardia, no gallops, no rubs Abdomen: Soft, nontender, no organomegaly, bowel sounds present Neuro: No focal deficits, no facial deformity, AO x3, power 5/5 in all limbs Extremities: No edema clubbing or cyanosis Data 04/27/24 03:20 04/27/24 03:20 Micro: Microbiology 04/26/24 09:37 Urine Culture - Preliminary Urine,Clean Catch A&P Assessment and plan (1) High-grade atrioventricular block: (2) Symptomatic bradycardia: (3) History of pulmonary embolism: (4) Anxiety and depression: Plan 29-year-old lady with a past medical history of thromboembolism/DVT/PE during multiple pregnancies, currently 6 days after having had a , discharged on Thursday (today is Thursday) reportedly heart rate ranging in the 90s post discharge. Found to have bradycardia with high degree of AV block on admission. Echocardiogram done shows an EF of 60% with mild to moderate MR, trace TR with PASP of 33 mmHg. Electrolytes stable. Keep potassium around 4, magnesium around 2. Telemonitoring. Fall precautions. Unknown cause for now. Could be in setting of cardiomyopathy. Patient does just take high-dose SSRI but has been on for many years. For now hold off on Zoloft. Appreciate QTc. Appreciate cardiology recommendations. Plan to continue to monitor for now. If needed will plan for possible leadless pacemaker. If remains persistently in the 40s we will plan for dopamine drip. IV hydralazine 10 mg every 4 hours as needed for systolic blood pressure more than 170 mmHg. History of thromboembolism: Current pulmonary embolism. PE ruled out on CTA done in the ER. Continue with heparin drip for now. 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 Patient also gives history of 2 miscarriages in first trimester in past. Does not give history of any kind of workup for the same in the past. Check once NATALIYA panel, lupus anticoagulant. Plan for the day: Continue to hold off on Zoloft. Continue to monitor the heart rate. Continue with telemetry. Depending on the heart rate monitoring in the next 24 to 48 hours we will plan for further management and decision about pacemaker implantation. Electrolytes stable. Keep potassium around 4, magnesium around 2. Appreciate cardiology recommendations. Continue with heparin drip. Full code Regular diet Protonix OPD prophylaxis Heparin drip will be sufficient for DVT prophylaxis as well. Attestations 2 Medical Necessity Statement*: Requires further hospitalization for management of significant bradycardia with high degree AV block in a patient with history of recurrent thromboembolism recently Diagnoses High-grade atrioventricular block I44.39 Symptomatic bradycardia R00.1 History of pulmonary embolism Z86.711 Anxiety and depression F41.9; F32.9
[2024-04-27 16:37] LABS: Partial Thromboplastin Time 32.7 SECONDS (23.9-36.7)
--- NOTE | 2024-04-27 17:09 | PC.NURSE ---
this nurse assumed care at this time
[2024-04-27 17:54] LABS: Partial Thromboplastin Time 37.4 SECONDS (23.9-36.7)
[2024-04-27] MEDS: heparin drip 25,000 UNIT/500 ML PREMIX 29 UNIT IV (21:43)
[2024-04-27 23:53] LABS: Partial Thromboplastin Time 37.5 SECONDS (23.9-36.7)
[2024-04-28] VITALS (23 sets, daily range): BP systolic 123–197; BP diastolic 74–106; PULSE 45–74; RESP 0–22; TEMP 36.5–36.9; O2SAT 90–98; BMI 53.1
[2024-04-28] MEDS: acetaminophen 325 mg Tablet 650 MG PO (04:12)
[2024-04-28 06:40] LABS: Partial Thromboplastin Time 86.7 SECONDS (23.9-36.7)
[2024-04-28] MEDS: magnesium lactate 84 mg Tablet PO (08:32)
[2024-04-28] MEDS: hyDRALAzine 25 mg Tablet PO (08:32)
[2024-04-28] MEDS: pantoprazole DR 40 mg Tablet PO (08:33)
[2024-04-28 13:03] LABS: Anti-Double Strand DNA AB <1 IU/mL; Jo-1 Antibody <1.0 NEG AI (<1.0 NEG); SS-B/LA IGG <1.0 NEG AI (<1.0 NEG); Scleroderma Ab(Scl-70) Ab <1.0 NEG AI (<1.0 NEG); Ss-A/Ro Igg <1.0 NEG AI (<1.0 NEG)
--- NOTE | 2024-04-28 13:19 | P.PN_ITS ---
Subjective 2 Subjective: The patient's heart rate seems to be in the 50s and 60s this morning. Her blood pressure was elevated but seems to be responding to hydralazine. Denies any chest pain or chest tightness. No other specific complaints. Medications: Medication Review Details: Current Medications Acetaminophen (Acetaminophen 325 Mg Tablet) 650 mg PO Q6H PRN PRN Reason: Mild/Mod Pain Or Temp >/= 101 Last Admin: 04/28/24 04:12 Dose: 650 mg Heparin Sodium (Porcine) (Heparin 5,000 Unit/Ml Inj 1 Ml) 0 unit IV PRN PRN; Protocol PRN Reason: Heparin weight-base protocol Last Admin: 04/26/24 02:41 Dose: 7,000 unit Hydralazine HCl (Hydralazine 20 Mg/Ml Inj 1 Ml) 10 mg IVP Q4H PRN PRN Reason: SBP More than 170 mmhg Last Admin: 04/27/24 20:08 Dose: 10 mg Hydralazine HCl (Hydralazine 25 Mg Tablet) 25 mg PO TID [facility] Last Admin: 04/28/24 08:32 Dose: 25 mg Heparin Sodium/Sodium Chloride (Heparin Drip) 25,000 unit in 500 mls @ 0 mls/hr IV .Q0M [facility]; Protocol Last Titration: 04/28/24 00:16 Dose: 10.78 unit/kg/hr, 36 mls/hr Magnesium Lactate (Magnesium Lactate 84 Mg Tablet) 84 mg PO BID [facility] Last Admin: 04/28/24 08:32 Dose: 84 mg Morphine Sulfate (Morphine 4 Mg/Ml Sdv 1 Ml) 1 mg IVP Q4H PRN PRN Reason: SEVERE PAIN Last Admin: 04/26/24 20:07 Dose: 1 mg Naloxone HCl (Naloxone 0.4 Mg/Ml Sdv) 0.1 mg IVP Q2M PRN PRN Reason: OPIATERV Ondansetron HCl (Ondansetron 2 Mg/Ml Sdv 2 Ml) 4 mg IVP Q8H PRN PRN Reason: vomiting, or N/V if npo Pantoprazole Sodium (Pantoprazole Dr 40 Mg Tablet) 40 mg PO BID [facility] Last Admin: 04/28/24 08:33 Dose: 40 mg Vitals/I&O/Wt Last Vital Signs Temp 97.7 F 06/27/24 07:55 Pulse 53 L 04/28/24 12:00 Resp 12 04/28/24 12:00 BP 162/90 04/28/24 11:00 Pulse Ox 96 04/28/24 12:00 O2 Del Method Room Air 04/28/24 04:00 04/27/24 04/28/24 04/28/24 22:59 06:59 14:59 Intake Total 990.00 / 1710.00 73.95 / 1783.95 570 / 570 Balance 990.00 / 1710.00 73.95 / 1783.95 570 / 570 Weight last 48 hrs Weight 360 lb 6.4 oz Weight 363 lb 11.2 oz Physical Exam 2 Narrative: GENERAL: The patient is alert and oriented times three. Not in any acute distress. Morbidly obese HEENT: No significant pallor, icterus or lymphadenopathy.Oral cavity: There are no mucous membrane lesions. NECK: Trachea appears to be central. No masses noted. No JVD or thyromegaly appreciated. RESPIRATORY: Chest is symmetrical. No intercostals muscle retraction or any accessory muscle activation. There is no chest wall tenderness. Breath sounds are heard bilaterally. No rales or rhonchi heard. No evidence of any consolidation. BREASTS: Deferred. HEART: The heart sounds are normal. No S3 or S4. No significant murmurs. No pericardial rub ABDOMEN: No vessel pulsations or distention. No tenderness. No organomegaly appreciated. Bowel sounds are normally heard. : Deferred. RECTAL: Deferred. LYMPHATIC: No lymphadenopathy noted in the neck. EXTREMITIES: No edema or cyanosis. No clubbing. MUSCULOSKELETAL: No acute joint deformities or swelling SKIN: There are no significant rashes or ecchymosis NEUROPSYCHIATRIC: The patient is alert and oriented x3. Appears to be in a good mood. No tremors or rigidity noted. Data 04/27/24 03:20 04/27/24 03:20 Other Labs: Laboratory Last Values WBC 6.71 10^3/uL (3.29-11.43) 04/27/24 03:20 RBC 3.42 10^6/uL (3.85-5.65) L 04/27/24 03:20 Hgb 10.40 g/dL (11.27-16.99) L 04/27/24 03:20 Hct 31.7 % (36-47) L 04/27/24 03:20 MCV 92.7 fl (85-98) 04/27/24 03:20 MCH 30.4 pg (27-33) 04/27/24 03:20 MCHC 32.8 g/dL (30-55) 04/27/24 03:20 RDW 13.6 % (12.1-15.1) 04/27/24 03:20 Plt Count 273 10^3/cmm (157-399) 04/27/24 03:20 MPV 9.7 fL (7.4-10.4) 04/27/24 03:20 Neut % (Auto) 47.6 % 04/27/24 03:20 Lymph % (Auto) 38.0 % 04/27/24 03:20 [place] % (Auto) 6.7 % 04/27/24 03:20 Eos % (Auto) 6.6 % 04/27/24 03:20 Baso % (Auto) 0.7 % 04/27/24 03:20 Neut # (Auto) 3.19 10^3/uL (1.8-7.7) 04/27/24 03:20 Lymph # (Auto) 2.6 10^3/uL (0.8-4.8) 04/27/24 03:20 [place] # (Auto) 0.5 10^3/uL (0.2-0.9) 04/27/24 03:20 Eos # (Auto) 0.4 10^3/uL (0.0-0.8) 04/27/24 03:20 Baso # (Auto) 0.1 10^3/uL (0.0-0.1) 04/27/24 03:20 Nucleated RBC % (auto) 0 % 04/27/24 03:20 Nucleated RBCs # 0.0 /100WBC 04/27/24 03:20 APTT 86.7 SECONDS (23.9-36.7) H D 04/28/24 06:10 D-Dimer 2.35 ug/mLFEU (0-0.59) H 04/25/24 18:57 Sodium 142 mmol/L (136-145) 04/27/24 03:20 Potassium 3.6 mmol/L (3.5-5.1) 04/27/24 03:20 Chloride 108 mmol/L (98-107) H 04/27/24 03:20 Carbon Dioxide 24 mmol/L (22-29) 04/27/24 03:20 Anion Gap 13.6 (5-19) 04/27/24 03:20 BUN 8 mg/dL (6-20) 04/27/24 03:20 Creatinine 0.7 mg/dL (0.5-0.9) 04/27/24 03:20 GFR Calculation 97.6 mL/min (90-130) 04/27/24 03:20 Glucose 92 mg/dL (65-115) 04/27/24 03:20 Estimat Average Glucose 94 04/26/24 13:35 Hemoglobin A1c 4.9 % (4.0-6.0) 04/26/24 13:35 Calculated Osmolality 292 mOsm/kg (285-295) 04/27/24 03:20 Calcium 8.2 mg/dL (8.5-10.5) L 04/27/24 03:20 Magnesium 2.0 mg/dL (1.7-2.3) 04/28/24 06:10 Iron 38 ug/dL (37-145) 04/26/24 00:49 TIBC 348 mcg/dl 04/26/24 00:49 % Saturation 10.9 % (20-50) L 04/26/24 00:49 Unsat Iron Binding 310 ug/dL (112-347) 04/26/24 00:49 Total Bilirubin 0.3 mg/dL (0.15-1.2) 04/27/24 03:20 AST 11 U/L (0-32) 04/27/24 03:20 ALT 11 U/L (0-33) 04/27/24 03:20 Alkaline Phosphatase 114 U/L (35-105) H 04/27/24 03:20 Troponin T Baseline 8 ng/L (0-10) 04/25/24 18:57 Troponin T 120 Minute 6.00 ng/L (0-10) 04/25/24 20:49 Delta Troponin T -2.00 ABS# (0-10) L 04/25/24 20:49 Troponin T Hi Sens 6Hr 6.76 ng/L (0-10) 04/26/24 00:49 Troponin T Hi Sens 6Hr Delta -1.24 ng/L (0-12) L 04/26/24 00:49 NT-Pro-B Natriuret Pep 761 pg/mL (0-125) H 04/26/24 00:49 Total Protein 6.0 g/dL (6.6-8.7) L 04/27/24 03:20 Albumin 2.8 g/dL (3.5-5.2) L 04/27/24 03:20 Globulin 3.2 g/dL (1.3-4.6) 04/27/24 03:20 Lipase 14 U/L (13-60) 04/25/24 18:57 Vitamin B12 277 pg/mL (232-1245) 04/26/24 00:49 TSH 1.53 uIU/mL (0.27-4.20) 04/25/24 20:49 Urine Color Yellow (Yellow) 04/26/24 09:37 Urine Appearance Slightly cloudy (CLEAR) 04/26/24 09:37 Urine pH 6 (5-7) 04/26/24 09:37 Ur Specific [place] 1.015 (1.005-1.030) 04/26/24 09:37 Urine Protein Neg (Negative) 04/26/24 09:37 Urine Glucose (UA) Norm (Normal) 04/26/24 09:37 Urine Ketones Negative (Negative) 04/26/24 09:37 Urine Blood 2+ (Negative) H 04/26/24 09:37 Urine Nitrate Negative (Negative) 04/26/24 09:37 Urine Bilirubin Neg (Negative) 04/26/24 09:37 Urine Urobilinogen Norm mg/dL (Negative) 04/26/24 09:37 Ur Leukocyte Esterase 1+ (Negative) H 04/26/24 09:37 Urine RBC 0-4 /hpf (0-2) H 04/26/24 09:37 Urine WBC 5-10 /hpf (0-5) H 04/26/24 09:37 Ur Squamous Epith Cells 5-10 /hpf (0-5) H 04/26/24 09:37 Ur Transition Epith Cell 5-10 /hpf 04/26/24 09:37 Amorphous Sediment Not Reportable 04/26/24 09:37 Urine Bacteria Trace /hpf (NONE) 04/26/24 09:37 Urine Mucus None /hpf 04/26/24 09:37 Urine Opiates Screen Positive ng/mL (Negative) H 04/26/24 09:37 Ur Barbiturates Screen Negative ng/mL (Negative) 04/26/24 09:37 Ur Phencyclidine Scrn Negative ng/mL (Negative) 04/26/24 09:37 Ur Amphetamines Screen Negative ng/mL (Negative) 04/26/24 09:37 U Benzodiazepines Scrn Negative ng/mL (Negative) 04/26/24 09:37 Urine Cocaine Screen Negative ng/mL (Negative) 04/26/24 09:37 U Marijuana (THC) Screen Negative ng/mL (Negative) 04/26/24 09:37 VA-1 Antibody <1.0 neg AI (<1.0 NEG) 04/26/24 13:35 SS-A/Ro IgG Antibody <1.0 neg AI (<1.0 NEG) 04/26/24 13:35 SS-B/La IgG Antibody <1.0 neg AI (<1.0 NEG) 04/26/24 13:35 Scl-70 Scleroderma Ab <1.0 neg AI (<1.0 NEG) 04/26/24 13:35 Anti-ds DNA IgG Ab <1 IU/mL 04/26/24 13:35 Anti-ds DNA IgG Ab <1 IU/mL 04/26/24 13:35 Micro: Microbiology 04/26/24 09:37 Urine Culture - Final Urine,Clean Catch A&P Assessment and plan (1) Symptomatic bradycardia: Since the patient remained stable, she may go home with an event monitor. (2) History of deep venous thrombosis or pulmonary embolus: No recent recurrence. Has been on Lovenox. Patient is currently on heparin. May need to be switched back to Lovenox (3) Hypertension: I may start the patient on hydralazine 25 mg p.o. 3 times a day. Closely monitor the blood pressure. The dose may be gradually advance for better control of the blood pressure. Qualifiers: Hypertension type: unspecified Qualified Code(s): I10 - Essential (primary) hypertension (4) History of pulmonary embolism: She had a CTA and was found to have no evidence of PE. May continue on the IV heparin for the time being. (5) Premature ventricular contractions: Patient seems to have no significant PVCs, since she was started on the Mag-Tab SR. Plan Since the patient is remaining stable with no significant symptoms, it may be appropriate to discharge her home. She need to be discharged with an event monitor for a month Appointment the [facility] in 1-2 week to be seen by the nurse practitioner Appoint with me in the office in 2 months Attestations 2 Medical Necessity Statement*: Disposition as per the primary Coding Level of Care Code 76813 Diagnoses Symptomatic bradycardia R00.1 History of deep venous thrombosis or pulmonary embolus Hypertension I10 Hypertension type: unspecified History of pulmonary embolism Z86.711 Premature ventricular contractions I49.3
--- NOTE | 2024-04-28 13:44 | PM.DCS ---
Discharge Providers Date of Admission: 04/25/24 22:50 Date of Discharge: April 28, 2024 Attending Provider at Admission: Madonna Rosenberg MD Attending Provider at Discharge: Jose Rick MD Consults: Cardiology: Dr. Obrien Primary Care Provider: Vashti Hodge DO Diagnoses at Discharge Discharge Diagnosis (1) Symptomatic bradycardia: Status: Acute (2) History of deep venous thrombosis or pulmonary embolus: Status: Acute Permanent problem details: Developed PE in 2013 after being hospitalized for approximately 1 week after having laparoscopic cholecystectomy with ERCP while . Hospitalized in [place]. Was on anticoagulants rest of and for a few months afterwards. She also ended up with blood clots in her arms after her 01/2021 delivery, and was started on eliquis. (3) Hypertension: Status: Acute Qualifiers: Hypertension type: unspecified Qualified Code(s): I10 - Essential (primary) hypertension (4) History of pulmonary embolism: Status: Acute (5) Premature ventricular contractions: Status: Acute Reason for Visit Reason for Visit: CP,RODRÍGUEZ Brief History: History as per HPI: Gabby Gomez is a 29 year old female who is 6 days after having a at [facility] in [place] last week. She was diagnosed with a PE during the course of her and has been on Lovenox ever since. In reviewing [employer] notes from outpatient, it appears she did have PE with her second in 2013 and DVT of the arm during her fourth in 2020. Per patient she has never been diagnosed with any known hypercoagulable state. She presents to the emergency room today with chief complaints of chest pain. It is located in the center of the chest. Radiating into the left side of her jaw. Associated with subjective dyspnea, made worse with respiration. Patient states that the pain is located mostly in her ribs. CTA of the chest ruled out a PE. She was detected to have sinus bradycardia has baseline rhythm with intermittent high-grade AV block noted on telemetry in the emergency room. She denies any past history of bradycardia. Reports that heart rate has been ranging mostly in the 90s. Denies any recent history of mastitis, denies any difficulty with breast-feeding.no recent fever chills nausea vomiting. States that vaginal discharge has been reducing since her . She has not noticed any abnormal discharge or odor. She denies any dizziness. Hospital Course Hospital Course Patient was admitted to the ICU further evaluation and management of significant bradycardia with high-grade AV block. Cardiology was consulted. There is a concern for bradycardia secondary to cardiomyopathy versus home use of Zoloft. Echocardiogram was done which showed an EF of 60% without regional wall motion abnormality. Given her history of recurrent thromboembolism, 2 miscarriages in the past and blood work with concerns for autoimmune disorder and lupus anticoagulant was sent. Patient was continued on heparin drip. Gradually patient's heart rate improved and currently has been ranging from high 40s to low 50s. Patient has remained asymptomatic. There is concern for bradycardia in setting of home use of Zoloft. She has been discharged in hemodynamically stable condition with advice for event monitor. She will follow-up with behavioral health clinic for switching Zoloft to a different medication. She will follow-up with a primary care provider within next 1 week. She is advised to continue Lovenox therapeutic dose at home and switch over to Eliquis once approved by her [employer]. Patient is advised to continue anticoagulation for the rest of her life given high concerns for thromboembolism in setting of autoimmune disorder. She is also found to have elevated blood pressure during hospitalization for which she was started on oral hydralazine 25 mg 3 times a day. She is asked to check her blood pressure daily at home maintain a blood pressure diary. Physical Exam Narrative: General: No acute distress, AO x3 HEENT: PERRLA, pupils bilaterally equal and reactive, pallors not present Chest: Normal vesicular breath sounds, no added sounds, equal good air entry bilaterally. No breast tenderness or localized collection/abscess CVS: S1-S2 regular, no murmurs, bradycardia, no gallops, no rubs Abdomen: Soft, nontender, no organomegaly, bowel sounds present Neuro: No focal deficits, no facial deformity, AO x3, power 5/5 in all limbs Extremities: No edema clubbing or cyanosis Discharge Data Studies Completed and Pending Completed Studies During Hospitalization Category Date Time Status CT angio chest PE protcl [id number] Stat Cat Scan 04/25/24 18:59 Completed XR chest 1V portable [id number] Stat Exams 04/25/24 18:22 Completed US echo complete [CV. echo complete* [id number]] Stat Ultrasound 04/25/24 22:26 Completed Pending at discharge Category Date Time Status Anti-Cardiolipin IgA AB Routine Lab 04/26/24 13:35 Received Lupus Inhibitor Panel Anticoag Routine Lab 04/26/24 13:35 Received MAG [Magnesium] AM LABS Lab 04/29/24 04:00 Ordered [facility] NATALIYA Profile Routine Lab 04/26/24 13:35 Results PTT [Partial Thromboplastin Time] Routine Lab 04/28/24 16:00 Ordered Platelet Count Q2D Lab 04/30/24 04:00 Ordered Protein C Antigen Routine Lab 04/26/24 13:35 Results Protein S Antigen, Total Routine Lab 04/26/24 13:35 Results Radiology Impressions Chest X-Ray 04/25/24 18:22 IMPRESSION: 1. No acute cardiopulmonary abnormality. Chest CTA 04/25/24 18:59 IMPRESSION: 1. No evidence of PE or acute aortic abnormality. 2. Findings raising the question of peptic ulcer disease. 3.Dilation of the pulmonary trunk suggesting pulmonary arterial hypertension. Echocardiogram CONCLUSIONS Normal left ventricular size and systolic function, EF 61%. No regional wall motion abnormalities. Mild-moderate mitral valve regurgitation. Trace to mild tricuspid valve regurgitation. Mild pulmonary valve regurgitation. Estimated pulmonary artery peak systolic pressure 33 mmHg There is no pericardial effusion. There are no intracardiac masses. No similar previous studies are available for comparison Dr Crystal Obrien MD [facility] (Electronically Signed) Final Date: 26 April 2024 10:04 Laboratory Results WBC 6.71 10^3/uL (3.29-11.43) 04/27/24 03:20 RBC 3.42 10^6/uL (3.85-5.65) L 04/27/24 03:20 Hgb 10.40 g/dL (11.27-16.99) L 04/27/24 03:20 Hct 31.7 % (36-47) L 04/27/24 03:20 MCV 92.7 fl (85-98) 04/27/24 03:20 MCH 30.4 pg (27-33) 04/27/24 03:20 MCHC 32.8 g/dL (30-55) 04/27/24 03:20 RDW 13.6 % (12.1-15.1) 04/27/24 03:20 Plt Count 273 10^3/cmm (157-399) 04/27/24 03:20 MPV 9.7 fL (7.4-10.4) 04/27/24 03:20 Neut % (Auto) 47.6 % 04/27/24 03:20 Lymph % (Auto) 38.0 % 04/27/24 03:20 [place] % (Auto) 6.7 % 04/27/24 03:20 Eos % (Auto) 6.6 % 04/27/24 03:20 Baso % (Auto) 0.7 % 04/27/24 03:20 Neut # (Auto) 3.19 10^3/uL (1.8-7.7) 04/27/24 03:20 Lymph # (Auto) 2.6 10^3/uL (0.8-4.8) 04/27/24 03:20 [place] # (Auto) 0.5 10^3/uL (0.2-0.9) 04/27/24 03:20 Eos # (Auto) 0.4 10^3/uL (0.0-0.8) 04/27/24 03:20 Baso # (Auto) 0.1 10^3/uL (0.0-0.1) 04/27/24 03:20 Nucleated RBC % (auto) 0 % 04/27/24 03:20 Nucleated RBCs # 0.0 /100WBC 04/27/24 03:20 APTT 86.7 SECONDS (23.9-36.7) H D 04/28/24 06:10 D-Dimer 2.35 ug/mLFEU (0-0.59) H 04/25/24 18:57 Sodium 142 mmol/L (136-145) 04/27/24 03:20 Potassium 3.6 mmol/L (3.5-5.1) 04/27/24 03:20 Chloride 108 mmol/L (98-107) H 04/27/24 03:20 Carbon Dioxide 24 mmol/L (22-29) 04/27/24 03:20 Anion Gap 13.6 (5-19) 04/27/24 03:20 BUN 8 mg/dL (6-20) 04/27/24 03:20 Creatinine 0.7 mg/dL (0.5-0.9) 04/27/24 03:20 GFR Calculation 97.6 mL/min (90-130) 04/27/24 03:20 Glucose 92 mg/dL (65-115) 04/27/24 03:20 Estimat Average Glucose 94 04/26/24 13:35 Hemoglobin A1c 4.9 % (4.0-6.0) 04/26/24 13:35 Calculated Osmolality 292 mOsm/kg (285-295) 04/27/24 03:20 Calcium 8.2 mg/dL (8.5-10.5) L 04/27/24 03:20 Magnesium 2.0 mg/dL (1.7-2.3) 04/28/24 06:10 Iron 38 ug/dL (37-145) 04/26/24 00:49 TIBC 348 mcg/dl 04/26/24 00:49 % Saturation 10.9 % (20-50) L 04/26/24 00:49 Unsat Iron Binding 310 ug/dL (112-347) 04/26/24 00:49 Total Bilirubin 0.3 mg/dL (0.15-1.2) 04/27/24 03:20 AST 11 U/L (0-32) 04/27/24 03:20 ALT 11 U/L (0-33) 04/27/24 03:20 Alkaline Phosphatase 114 U/L (35-105) H 04/27/24 03:20 Troponin T Baseline 8 ng/L (0-10) 04/25/24 18:57 Troponin T 120 Minute 6.00 ng/L (0-10) 04/25/24 20:49 Delta Troponin T -2.00 ABS# (0-10) L 04/25/24 20:49 Troponin T Hi Sens 6Hr 6.76 ng/L (0-10) 04/26/24 00:49 Troponin T Hi Sens 6Hr Delta -1.24 ng/L (0-12) L 04/26/24 00:49 NT-Pro-B Natriuret Pep 761 pg/mL (0-125) H 04/26/24 00:49 Total Protein 6.0 g/dL (6.6-8.7) L 04/27/24 03:20 Albumin 2.8 g/dL (3.5-5.2) L 04/27/24 03:20 Globulin 3.2 g/dL (1.3-4.6) 04/27/24 03:20 Lipase 14 U/L (13-60) 04/25/24 18:57 Vitamin B12 277 pg/mL (232-1245) 04/26/24 00:49 TSH 1.53 uIU/mL (0.27-4.20) 04/25/24 20:49 Urine Color Yellow (Yellow) 04/26/24 09:37 Urine Appearance Slightly cloudy (CLEAR) 04/26/24 09:37 Urine pH 6 (5-7) 04/26/24 09:37 Ur Specific [place] 1.015 (1.005-1.030) 04/26/24 09:37 Urine Protein Neg (Negative) 04/26/24 09:37 Urine Glucose (UA) Norm (Normal) 04/26/24 09:37 Urine Ketones Negative (Negative) 04/26/24 09:37 Urine Blood 2+ (Negative) H 04/26/24 09:37 Urine Nitrate Negative (Negative) 04/26/24 09:37 Urine Bilirubin Neg (Negative) 04/26/24 09:37 Urine Urobilinogen Norm mg/dL (Negative) 04/26/24 09:37 Ur Leukocyte Esterase 1+ (Negative) H 04/26/24 09:37 Urine RBC 0-4 /hpf (0-2) H 04/26/24 09:37 Urine WBC 5-10 /hpf (0-5) H 04/26/24 09:37 Ur Squamous Epith Cells 5-10 /hpf (0-5) H 04/26/24 09:37 Ur Transition Epith Cell 5-10 /hpf 04/26/24 09:37 Amorphous Sediment Not Reportable 04/26/24 09:37 Urine Bacteria Trace /hpf (NONE) 04/26/24 09:37 Urine Mucus None /hpf 04/26/24 09:37 Urine Opiates Screen Positive ng/mL (Negative) H 04/26/24 09:37 Ur Barbiturates Screen Negative ng/mL (Negative) 04/26/24 09:37 Ur Phencyclidine Scrn Negative ng/mL (Negative) 04/26/24 09:37 Ur Amphetamines Screen Negative ng/mL (Negative) 04/26/24 09:37 U Benzodiazepines Scrn Negative ng/mL (Negative) 04/26/24 09:37 Urine Cocaine Screen Negative ng/mL (Negative) 04/26/24 09:37 U Marijuana (THC) Screen Negative ng/mL (Negative) 04/26/24 09:37 VA-1 Antibody <1.0 neg AI (<1.0 NEG) 04/26/24 13:35 SS-A/Ro IgG Antibody <1.0 neg AI (<1.0 NEG) 04/26/24 13:35 SS-B/La IgG Antibody <1.0 neg AI (<1.0 NEG) 04/26/24 13:35 Scl-70 Scleroderma Ab <1.0 neg AI (<1.0 NEG) 04/26/24 13:35 Anti-ds DNA IgG Ab <1 IU/mL 04/26/24 13:35 Anti-ds DNA IgG Ab <1 IU/mL 04/26/24 13:35 Vitals Last Vital Signs Temp 97.7 F 04/28/24 07:55 Pulse 53 L 04/28/24 12:00 Resp 12 04/28/24 12:00 BP 162/90 04/28/24 11:00 Pulse Ox 96 04/28/24 12:00 O2 Del Method Room Air 04/28/24 04:00 Discharge Plan Discharge Patient Disposition: Home Condition: Stable Prescriptions: New magnesium L-lactate [Magtab] 84 mg Tablet Extended Release 84 mg PO BID Qty: 60 0RF hydralazine 25 mg Tablet 25 mg PO TID Qty: 90 0RF Continued Gummies 400 mcg-35 mg- 25 mg-5 mg tablet,chewable 1 tab PO 1XD Lovenox 40 mg/0.4 mL syringe 180 mg SUBCUT BID Rx Instructions: Hx of DVT in Discontinued Zoloft 100 mg tablet 100 mg PO DAILY Rx Instructions: Take one tablet daily Discharge Orders: Discharge Order (Routine); Ordered 04/28/24 Ordered By: Jose Rick Other Ambulatory Orders: MCT/Event Monitor 30 Days (Routine) Timeframe: 1 Day Facility: [facility] - Location: Radiology Ordered By: Crystal Obrien Referrals: Vashti Hodge DO [Primary Care Provider] - 05/02/24 2:45 pm (Due to family physican leaving the clinic ,to move to [place] ,will schedule follow up with Nurse Practictioner hay romero as primary care .this appointment date as follows ) Vernell Waite FNP [Nurse Practitioner] - 05/25/24 1:00 pm Discharge Diet: Cardiac Discharge Activity: Resume usual activity and Increase activity as tolerated Patient Instructions: Opioid Safety Activity Restrictions/Additional Instructions: Please follow-up with a primary care provider within next 1 week. Follow-up with Vernell Waite in 2 weeks. You should have an event monitor placed for further evaluation of significant bradycardia. Continue with Lovenox as before. Once you switch from Lovenox to Eliquis you should be taking Eliquis for the rest of her life. Eliquis should be 5 mg twice daily. Please follow-up with behavioral health clinic for switching of medications from Zoloft with concerns for bradycardia Discharge Attestations Time Spent in Discharge Care*: greater than 30 min Specific Discharge Activities: educating patient, discussing with pcp/other providers, discussing with major case detective/social workers/dc planners, documenting/other paperwork and evaluating patient/reviewing data Status at Discharge: Cognitive status at discharge: cognitively intact, Behavioral status at discharge: cooperative, Functional status at discharge: independent ambulation, Overall status at discharge: patient is progressing back to baseline Quality Metrics Clinical Quality Measures [ No reported AMI, CVA or VTE this stay] Coding Level of Care Code 84450 Total time (in minutes) for Discharge: 70 Diagnoses Symptomatic bradycardia R00.1 History of deep venous thrombosis or pulmonary embolus Hypertension I10 Hypertension type: unspecified History of pulmonary embolism Z86.711 Premature ventricular contractions I49.3
--- NOTE | 2024-04-28 14:41 | PC.NURSE ---
All D/C instructions educated to patient, IVs D/C
--- NOTE | 2024-04-28 15:14 | PC.NURSE ---
Patient's heart event monitor set up, instructions educated and sent with patient, out of facility at this time transported home by
[2024-04-29 22:21] LABS: Lupus Hexagonal Phas Confirm NEGATIVE (NEGATIVE); PTT-LA-Screen 42 sec (< OR = 40)
[2024-04-30 02:28] LABS: Anti-Cardiolipin IgA AB <2.0 APL-U/mL
[2024-05-01 11:50] LABS: Protein S Antigen, Total 101 % normal (70-140)
[2024-05-03 13:59] LABS: Protein C Antigen 99 % normal (70-140)
== END 2024-04-28 15:20 | disposition home or self-care (01) | DRG 309 ==
LOC: ER 22:29 → ICU 22:50
PROVIDERS: Emergency Medicine; Admitting Provider Student in an Organized Health Care Education/Training Program; Emergency Provider Emergency Medicine; PCP Family Medicine; Visit Provider Student in an Organized Health Care Education/Training Program
DX: I49.3 Ventricular premature depolarization (principal); F33.9 Major depressive disorder, recurrent, unspecified; R00.1 Bradycardia, unspecified; Z86.718 Personal history of other venous thrombosis and embolism; Z79.01 Long term (current) use of anticoagulants; Z86.711 Personal history of pulmonary embolism; I10 Essential (primary) hypertension; F41.9 Anxiety disorder, unspecified; Z87.891 Personal history of nicotine dependence
CPT/HCPCS: 36415; 71045; 71275; 80053; 80306; 81001; 82607; 83036; 83540; 83550; 83690; 83735; 83880; 84443; 84484; 85025; 85302; 85305; 85378; 85613; 85730; 86147; 86225; 86235; 87086; 93005; 93306; 96374; 96375; 96376; 99285; J0360; J1644; J2270; J2405; Q9967

== ENCOUNTER → 2024-05-09 13:55 | Outpatient (BNVA) | payer MEDICAID, SELFPAY | PROVIDERS: PCP Family Medicine | DX: I10 Essential (primary) hypertension (principal); Z86.711 Personal history of pulmonary embolism | CPT/HCPCS: 80053; 85025 ==

== ENCOUNTER → 2024-08-30 13:32 | Outpatient (BNVA) | payer MEDICAID, SELFPAY | DX: E66.01 Morbid (severe) obesity due to excess calories (principal) | CPT/HCPCS: 80053; 83036; 84439; 84443 ==